=== PATIENT | male | born 2000 | race Caucasian/White ===

== ENCOUNTER 2023-07-31 13:24 | Outpatient (AMB) | payer OTHER, SELFPAY ==
--- NOTE | 2023-07-31 13:40 | A.OFFVIS_ITS ---
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 He was referred by PCP for pulmonary evaluation for persistent cough. He reports dry cough that began late summer/early fall. He was prescribed an inhaler but did not use. He was also diagnosed with COVID 06/17/23. Chest CT from 07/04, below. He had recent treatment with doxycyline, finishing last dose this morning and has had resolution of cough. He denies chest tightness, wheezing, or dyspnea. He denies hemoptysis. Of note, he was diagnosed with vasculitis in April by PCP and referred to rheumatology. Unfortunately, when patient went to consultation, vasculitis of LE was not flaring, therefore no biopsy performed. Multiple labs were ordered in May 2023 however patient did not want to continue care through [facility] Rheumatology and is awaiting appointment scheduled this summer. Reviewed labs via patient portal which revealed multiple abnormal results, will request reports. Patient currently with rash of RLE that started about two weeks ago, per referral. He denies any prior diagnosis of asthma. He denies any family history of respiratory conditions or autoimmune conditions. He reports possible seasonal allergies, no prior allergy testing. 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 [facility] Social History (Updated 07/31/23 @ 13:50 by Jessica Mcgee LPN) Patient Tobacco Use Status: Never used Tobacco Smoked in Last 30 Days: No Review of Systems Const Denies chills, Denies excessive sweating, Denies fever(s), Denies headache(s) and Denies night sweats Eyes Denies dry eyes, Denies irritation and Denies itchy eyes ENT Reports Normal hearing present, Denies headache(s), Denies nasal congestion, Denies nasal discharge, Denies post nasal drip and Denies sore throat Card Denies chest pain, Denies chest pain at rest, Denies chest pain with activity, Denies claudication, Denies leg edema, Denies dyspnea, Denies dyspnea on exertion, Denies orthopnea and Denies paroxysmal nocturnal dyspnea Resp Denies chest congestion, Denies cough, Denies excessive phlegm production, Denies pain on inspiration, Denies pain with cough, Denies dyspnea, Denies dyspnea on exertion, Denies stridor and Denies wheezing Musc Denies myalgias Neuro Reports Normal hearing present and Denies headache(s) Endo Denies excessive sweating Aller/Immun Denies itchy eyes, Denies seasonal rhinorrhea and Denies wheezing Physical Exam Vital Signs: BMI result Body Mass Index 26.5 Const General: cooperative, healthy appearing, comfortable, no acute distress, well developed and alert Nutritional Appearance: average body habitus Orientation/consciousness: patient oriented x3 Limitations: no limitations HEENT Head: Yes normal to inspection, Yes normocephalic and Yes atraumatic Ears: hearing grossly normal bilaterally and external ears normal Eyes General: appearance normal, both eyes and all related structures Eyelids: Yes eyelids normal Sclerae: sclerae normal EOM: EOMs intact bilaterally Neck Neck: Yes normal visual inspection and Yes no lymphadenopathy Lymphatic: no lymphadenopathy noted Chest Chest palpation & inspection: normal inspection of the chest Resp Effort & Inspection: normal respiratory effort, able to speak in complete sentences, no audible wheezes, no cough, no stridor, not tachypneic, no tripod positioning and no use of accessory muscles Auscultation: clear to auscultation bilaterally Cardio Jugular venous distension: no JVD Rate: regular rate Skin Other: warm, dry Neuro General: patient oriented x3 Cranial nerves: Yes Normal hearing present Cognition (Neuro): normal cognition Gait exam (Neuro): Normal gait present Extrem Other: multiple erythematous petechiae of RLE. General: Yes no clubbing, cyanosis or edema Psych Appearance: grossly normal and well kempt Speech and movement: Normal speech and movement present and Clear speech present Affect: normal affect Attitude: cooperative Thought process: Normal thought process present Thought content: Normal thought content present Insight: Good insight present (Psych) Judgement: Good judgement present (Psych) Results Reviewed Results Reviewed: Assessment & Plan Assessment & Plan (1) Cough: Code(s): R05.9 - Cough, unspecified (2) Vasculitis: Code(s): I77.6 - Arteritis, unspecified (3) Abnormal finding on CT scan: Code(s): R93.89 - Abnormal findings on diagnostic imaging of other specified body structures (4) Environmental allergies: Code(s): Z91.09 - Other allergy status, other than to drugs and biological substances Plan Elias was initially referred for persistent dry cough for the past 5-6 months. Will send for PFT to assess for any obstructive defect as well as RAST testing. Although patient reports resolution of cough after recent course of doxycyline, prior imaging revealed multiple areas of ground glass opacities, likely infectious/inflammatory. Will send for CXR today as prior CT was from 4 weeks ago to assess for resolving opacities and likely send for follow up chest CT in 4-6 weeks. His prior labs are suggestive of an underlying connective tissue disorder, which could explain pulmonary, kidney and skin involvement. Will urgently refer to rheumatology and request prior rheumatology labs from [facility]. If unable to be evaluated quickly by rheumatology, will review labs to see what further testing needs to be performed. He also has an appointment tomorrow with nephrology to assess recent findings on hematuria and proteinuria. Will follow up to review results and rheumatology/neprhology input. All questions were answered and patient is in agreement of plan. Orders: Orders 2 Complete Blood Count Auto Diff Today I77.6 - Arteritis, unspecified Immunoglobulin E Today Z91.09 - Other allergy status, other than to drugs and biological substances Resp Allergy Profile Region I Today Z91.09 - Other allergy status, other than to drugs and biological substances XR chest 2V Today R05.9 - Cough, unspecified PFT pulmonary function test Today R05.9 - Cough, unspecified Referrals 2 Rheumatology Referral I77.6 - Arteritis, unspecified Coding Level of Care Code New Pt Level 5 (16925) Diagnoses Cough R05.9 Vasculitis I77.[address] scan R93.89 Environmental allergies Z91.09
[2023-07-31 13:42] VITALS: BMI 26.5
== END 2023-07-31 14:30 | disposition home or self-care (01) ==
PROVIDERS: PCP Pediatrics Adolescent Medicine; Visit Provider Nurse Practitioner Family
DX: R05.9 Cough, unspecified (principal); I77.6 Arteritis, unspecified; R93.89 Abnormal findings on diagnostic imaging of other specified body structures; Z91.09 Other allergy status, other than to drugs and biological substances
CPT/HCPCS: 99204

== ENCOUNTER → 2023-07-31 13:24 | Outpatient (BNVA) | payer OTHER, SELFPAY | PROVIDERS: PCP Pediatrics Adolescent Medicine; Visit Provider Nurse Practitioner Family ==

== ENCOUNTER 2023-08-01 11:27 | Outpatient (AMB) | payer OTHER, SELFPAY ==
[2023-08-01 11:47] VITALS: BP 120/70; PULSE 85; O2SAT 98; BMI 26.5
--- NOTE | 2023-08-01 11:47 | HO.NEPHOV_ITS ---
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 he had lower extremity rash bilaterally in April 2023. he had associated cough at that time with no fever. He had no abdominal pain at that time. There was no history of macroscopic hematuria at any time. He denied any joint pains or pedal edema. He has seen a on call [place] who ordered some workup but has not had a follow-up after that. His serum creatinine has been fairly stable with normal blood pressure. His rash had faded away but to recur again recently on the dorsum of both feet, purpuric in nature which even now has started to fade. He has microscopic hematuria but had no significant proteinuria even in May 2023. His [employer] IgG antibodies were positive along with rheumatoid factor. His cryoglobulin was presumed to be positive but it was not repeated. His complement levels C3 was 76 and 79 in April and May but had improved to 1.9 on 06/05/2023. His C4 levels were 9 and 8 on 28 of April and 17 of May but had improved to 15 on 06/05/2023. His C-reactive protein was 4.9 on 04/28/2023 which had improved to 4.5 on 17 of May which had settled to 2.7 on 06/05/2023. His ESR on 06/05/2023 was 51. His serum creatinine was 1 on 06/05/2023. He had COVID infection in June of 2023 consisted mostly of upper respiratory symptoms. He does have a lingering dry cough. One over documentation in [facility] mentions that he had had just be vasculitis treated w ith steroids around . 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 Danilo Fuchs. He had a reoperative sternotomy with the pulmonary valve replacement using a pericardial tissue valve in January of 2019. He denies any other active systemic symptoms at the time of this office visit. [facility] Medical History Proteinuria Surgical History (Updated 08/01/23 @ 11:50 by Janine Taveras MA) History of open heart surgery Family History (Updated 08/01/23 @ 11:51 by Janine Taveras MA) Maternal Grandmother Diabetes Paternal Grandfather Diabetes Social History (Updated 08/01/23 @ 11:51 by Janine Taveras MA) Alcohol intake: never Patient Tobacco Use Status: Never used Tobacco Vital Signs 08/01/23 11:47 Height 5 ft 11 in Weight 190 lb 6 oz BMI 26.5 BP 120/70 Blood Pressure Location Lt brachial Position Sitting Pulse 85 Pulse Source Pulse Oximeter Pulse Oximetry (%) 98 Oxygen Delivery Method Room Air Physical Exam Vital Signs: Last Vital Signs Pulse 85 08/01/23 11:47 BP 120/70 08/01/23 11:47 Pulse Ox 98 08/01/23 11:47 Oxygen Delivery Method Room Air 08/01/23 11:47 BMI result Body Mass Index 26.5 Const General: comfortable and no acute distress Orientation/consciousness: patient oriented x3 HEENT Head: Yes normocephalic Mouth: Normal oral and palatal mucosa present Eyes EOM: EOMs intact bilaterally Neck Neck: Yes supple Resp Auscultation: clear to auscultation bilaterally Cardio Jugular venous distension: no JVD Rate: regular rate GI Palpation (GI): Soft to palpation Auscultation: normal bowel sounds General: Yes no CVA tenderness Back/Spine/Pelvis Back: no CVA tenderness Skin Other: Purpuric rash on both dorsum of the feet Neuro General: patient oriented x3 and moves all extremities Extrem General: Yes no pedal edema Assessment & Plan Assessment & Plan (1) Vasculitis: Code(s): I77.6 - Arteritis, unspecified Plan 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 His complements were low with microscopic hematuria without any significant proteinuria and stable renal function. His blood pressure at that time was normal. He had recurrence of the rash now. He has no GI symptoms, sore throat, microscopic hematuria. He has microscopic hematuria but had no significant proteinuria even in May 2023. His M[employer] IgG antibodies were positive along with rheumatoid factor. His cryog lobulin was presumed to be positive but it was not repeated. His complement levels C3 was 76 and 79 in April and May but had improved to 1.9 on 06/05/2023. His C4 levels were 9 and 8 on 28 of April and 17 of May but had improved to 15 on 06/05/2023. His C-reactive protein was 4.9 on 04/28/2023 which had improved to 4.5 on 17 of May which had settled to 2.7 on 06/05/2023. His ESR on 06/05/2023 was 51. His serum creatinine was 1 on 06/05/2023. His blood pressure is normal now. I have ordered IgA levels complements, repeat cryoglobulin. He needs rheumatological consultation urgently. If any other workup is compelling, we will consider doing a renal biopsy but I prefer to avoid it if possible, if the diagnosis is definite by other means. I have not treated him with any medications today but prominence him and his mother that I will try to get him an urgent rheumatological appointment. Further management is pending evolving data. Answered all questions. Follow-up given Orders: Orders Complement C3 Today I77.6 - Arteritis, unspecified Protein Electrophoresis, Serum Today I77.6 - Arteritis, unspecified Blood Urea Nitrogen Today I77.6 - Arteritis, unspecified Electrolytes Today I77.6 - Arteritis, unspecified Protein Creatinine Ratio, Ur Today I77.6 - Arteritis, unspecified Cryoglobulin Today I77.6 - Arteritis, unspecified Complement C4 Today I77.6 - Arteritis, unspecified Creatinine Today I77.6 - Arteritis, unspecified AMB Urinalysis Dipstick Today I77.6 - Arteritis, unspecified, Z13.9 - Encounter for screening, unspecified Prothrombin Time INR Today I77.6 - Arteritis, unspecified Coding Level of Care Code New Pt Level 4 (15500) Diagnoses Vasculitis I77.6 Results Reviewed Nephrology Results: No Data to Display
== END 2023-08-01 12:34 | disposition home or self-care (01) ==
PROVIDERS: PCP Pediatrics Adolescent Medicine; Visit Provider Internal Medicine Nephrology
DX: I77.6 Arteritis, unspecified (principal)
CPT/HCPCS: 99204

== ENCOUNTER → 2023-08-01 11:27 | Outpatient (BNVA) | payer OTHER, SELFPAY | PROVIDERS: PCP Pediatrics Adolescent Medicine; Visit Provider Internal Medicine Nephrology ==

== ENCOUNTER 2023-08-02 09:35 | Outpatient (REF) | payer OTHER, SELFPAY ==
--- NOTE | ~2023-08-02 | XR_ITS ---
EXAMINATION: XR CHEST CLINICAL INFORMATION: Cough unspecified. COMPARISON: None available. TECHNIQUE: 2 views of the chest were obtained. FINDINGS: Enlarged cardiac silhouette. Prominence of the bilateral fide, possibly due to vascularity versus adenopathy. Median sternotomy wires. Several median sternotomy wires are broken. Prosthetic valve. No pleural effusion. There is no gross pneumothorax. Mild bibasilar opacities likely represent subsegmental atelectasis, although pneumonia should also be considered. Loss of height of two adjacent lower thoracic vertebral bodies characteristic of wedge compression deformities of indeterminate age. XR/XR chest 2V IMPRESSION: 1. Prominence of the bilateral fide, possibly due to vascularity versus less likely adenopathy. 2. Mild bibasilar opacities likely represent subsegmental atelectasis, although pneumonia should also be considered. 3. Loss of height of the adjacent lower thoracic vertebral bodies characteristic of wedge compression fractures of indeterminate age. 4. Direct correlation with prior images is recommended and if prior images are provided, an addendum will be dictated. In the absence of prior images, CT scan is recommended for further evaluation. This study was presented today August 07, 2023 for interpretation. PSA staff will provide results to referring provider at this time.
[2023-08-02 12:40] LABS: Creatinine Urine 107.65 mg/dL; Protein/Creatinine Ratio, Ur 0.48 (<0.2); Total Protein Urine Random 52 mg/dL (<12)
[2023-08-02 12:40] LABS: Alanine Aminotransferase 10 U/L (0-40); Albumin Level 3.4 g/dL (3.5-5.0); Alkaline Phosphatase 77 U/L (39-117); Anion Gap 13 (12-20); Aspartate Amino Transferase 20 U/L (5-37); Bilirubin Total 0.3 mg/dL (0.0-1.0); Blood Urea Nitrogen 11 mg/dL (9-16); C Reactive Protein 4.44 mg/dL (< or = 0.50); Calcium 9.3 mg/dL (8.4-10.2); Carbon Dioxide 28 mmol/L (22-29); Chloride 106 mmol/L (96-108); Estimated Glomerular Filt Rate > 60; Glucose Random 82 mg/dL (60-115); Potassium 5.6 mmol/L (3.3-5.1); Sodium 141 mmol/L (135-145); Total Protein 7.9 g/dL (6.5-8.0)
[2023-08-02 12:48] LABS: Appearance Urine Clear; Color Urine Yellow; Glucose Urine UA Negative (Negative); Leukocyte Esterase Urine Negative (Negative); Nitrite Urine Negative (Negative); PH >= 9.0 (5.0-9.0); Specific Gravity - Urine 1.015 (1.005-1.025); UMIC TRIGGER UA YES; Urine Blood Large (3+) (Negative); Urine Ketones Negative (Negative); Urine Protein 100 (2+) mg/dL (Neg-Trace)
[2023-08-02 12:53] LABS: Bacteria Urine None Seen (None Seen); Hyaline Casts Urine 0-2 /LPF (0-2); RBC Urine >20 /HPF (0-2); Squamous Epithelial Cell Urine 0-2 /HPF (0-2)
[2023-08-02 13:12] LABS: Erythrocyte Sedimentation Rate 73 MM/HR (0-15)
[2023-08-03 08:25] LABS: HBS Num1 0.29 mIU/mL (0-7.99); HBc Num1 0.11 S/CO (0.00-0.79); HBsAGNum1 0.43 S/CO (0.00-0.99); HIV AB/AG Nonreactive (Nonreactive); HIV Num 1 0.06 S/CO (0.00-0.99); Hepatitis A Antibody IgM 0.17 Index (0-0.79); Hepatitis B Core Antibody Nonreactive (Nonreactive); Hepatitis B Surface Antigen Negative (Negative); ~HepC Num1 0.16 S/CO (0.00-0.79); ~Hepatitis A Antibody IgM Nonreactive (Nonreactive); ~Hepatitis B Surface Antibody NONREACTIVE (Nonreactive); ~Hepatitis C Antibody Nonreactive (Nonreactive)
[2023-08-03 13:49] LABS: Cardiolipin IgG Ab <2.0 GPL-U/mL; Cardiolipin IgM Ab <2.0 MPL-U/mL
[2023-08-03 14:03] LABS: Cyclic Citrullinated Peptide <16 UNITS
[2023-08-04 22:53] LABS: TS Negative Control Passed; TS Panel A 0; TS Panel B 0; TS Positive Control Passed; TSpotTB Negative (Negative)
[2023-08-06 21:48] LABS: Anti DNA DS Antibody <1 IU/mL; Antibody to SS-A Antigen <1.0 NEG AI (<1.0 NEG); Antibody to SS-B Antigen <1.0 NEG AI (<1.0 NEG); Myeloperoxidase Antibody <1.0 AI; Proteinase 3 PR3 Antibodies <1.0 AI; SM/Ribonucleoprotein Ab <1.0 NEG AI (<1.0 NEG); Smith Protein <1.0 NEG AI (<1.0 NEG)
[2023-08-06 22:24] LABS: Beta-2 Glycoprotein IgA <2.0 U/mL (<20.0); Beta-2 Glycoprotein IgG <2.0 U/mL (<20.0); Beta-2 Glycoprotein IgM <2.0 U/mL (<20.0)
[2023-08-07 15:19] LABS: DNAds, Crithidia Antibody Negative (Negative)
[2023-08-08 14:07] LABS: PTT (LAC) Screen 32 sec (<=40)
[2023-08-08 15:08] LABS: IgA 232 mg/dL (47-310); IgG 2493 mg/dL (600-1640); IgM 257 mg/dL (50-300)
[2023-08-09 12:34] LABS: C1q Antibody IgG 29 RU/mL (<26)
[2023-08-09 18:03] LABS: C1Q Complement Component 4.9 mg/dL (5.0-8.6)
[2023-08-11 19:27] LABS: Anti Nuclear Antibody Screen POSITIVE (NEGATIVE)
== END 2023-08-02 09:36 | disposition home or self-care (01) ==
LOC: HO.LAB 09:35
PROVIDERS: Absent Provider Nurse Practitioner Family; PCP Pediatrics Adolescent Medicine; Visit Provider Student in an Organized Health Care Education/Training Program
DX: I77.6 Arteritis, unspecified (principal); R76.0 Raised antibody titer; M06.9 Rheumatoid arthritis, unspecified; M32.9 Systemic lupus erythematosus, unspecified; R21 Rash and other nonspecific skin eruption; R05.9 Cough, unspecified; Z79.82 Long term (current) use of aspirin; Z11.59 Encounter for screening for other viral diseases; Z11.7 Encounter for testing for latent tuberculosis infection; Z72.89 Other problems related to lifestyle
CPT/HCPCS: 36415; 71046; 80053; 81001; 82570; 82595; 82784; 83516; 84156; 85597; 85598; 85613; 85652; 85730; 86021; 86038; 86039; 86140; 86146; 86147; 86160; 86200; 86225; 86235; 86255; 86334; 86481; 86704; 86706; 86709; 86803; 87340; 87389

== ENCOUNTER 2023-08-02 09:35 | Outpatient (AMB) | payer OTHER, SELFPAY ==
[2023-08-02 10:04] VITALS: BP 124/66; PULSE 108; TEMP 37.5; BMI 26.3
--- NOTE | 2023-08-02 10:04 | MHC.OFFVIS ---
Intake Vital Signs 08/02/23 10:04 Height 5 ft 11 in Weight 188 lb 4.396 oz BMI 26.3 BP 124/66 Pulse 108 H Pulse Source Pulse Oximeter Temp 99.5 F Temp Source Skin Intake Visit Reasons: Vasculitis Intake Note: New patient presents today for consult, internally referred by nephrology. He is with his mother who states pt has seen Dr Arrieta in the past. C/o rash and pain in bl legs and feet; persistent cough. Crime Victim Specialist Required: No Accompanied by: Mother Allergies No Known Allergies Allergy (Verified 08/02/23 10:07) Medication List - Last Reconciled 08/02/23 by Linda Garcia MD aspirin 81 mg PO DAILY HPI HPI Comments History of Present Illness Details This is a 22-year-old male who presents for evaluation of vasculitis. Back in February patient started having dry nonproductive cough with no fevers. Two months later he started having rashes both feet and his legs up to just below his knees. This was associated with some ankle pain and swelling as well as bilateral calf aches. He denies any fevers or chills, no weight loss. 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 He had some dark urine. He was prescribed steroid for 4 days with improvement of his rash. In May he was evaluated by quality facilitator Dr. Arrieta and had blood work done. He did not go back for follow-up. A CT chest was also ordered which showed multiple ground-glass opacities, but patient had just cleared a COVID infection. Currently patient is having the rash on both legs, not as severe as before. In addition to the dry cough. No other symptoms. No history of DVT/PE. No known family history of an autoimmune rheumatic disease. Of note patient has history of tetralogy of Fallot s/p surgery as an infant and another surgical procedure 5 years ago. 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 Review of Systems Const Reports fatigue ENT Details: runny nose Card Reports chest pain, Denies dyspnea and Denies dyspnea on exertion Resp Reports cough, Denies dyspnea and Denies dyspnea on exertion GI Reports abdominal pain and Reports nausea Details: Dark urine Musc Reports myalgias, Reports arthralgias and Reports joint swelling Skin/Breast Reports lesions and Reports rash Endo Reports fatigue Physical Exam Vital Signs: Last Vital Signs Temp 99.5 F 08/02/23 10:04 Pulse 108 H 08/02/23 10:04 BP 124/66 08/02/23 10:04 BMI result Body Mass Index 26.3 Const General: cooperative, healthy appearing and comfortable Nutritional Appearance: overweight Orientation/consciousness: patient oriented x3 Limitations: no limitations HEENT Head: Yes normocephalic and Yes atraumatic Mouth: moist mucous membranes Resp Other: Intermittent dry cough Effort & Inspection: normal respiratory effort, able to speak in complete sentences and Actively coughing Quality: dry Cardio Rate: regular rate Heart sounds: Murmur heart sound present systolic Skin Other: Neuro General: patient oriented x3 Extrem Other: Mild right ankle tenderness at the medial malleolus No active synovitis otherwise Normal nailfold capillaroscopy Assessment & Plan Assessment & Plan (1) Vasculitis: Code(s): I77.6 - Arteritis, unspecified Plan: This is a 22-year-old male with history of tetralogy of Fallot s/p surgical repair who presents for evaluation of vasculitis. Over the last 6 months patient has been having recurrent lower extremity rashes, as well as dry nonproductive cough, CT chest showing findings of ground-glass opacities. Rashes improving with steroids. Labs showing high inflammatory markers, low C3, low C4, positive rheumatoid factor. Clinical picture suspicious for small-vessel vasculitis. Will order comprehensive serology to screen for underlying autoimmune rheumatic disease. Start prednisone taper Follow-up in 4 weeks Plan I spent 47 minutes reviewing patient's chart, evaluating patient, ordering diagnostic workup, counseling patient and documenting in the chart Orders: Orders Beta-2 Glycoprotein Antibody Today R76.0 - Raised antibody titer Lupus Anticoagulant Panel Today R76.0 - Raised antibody titer Comprehensive Met. Panel Today I77.6 - Arteritis, unspecified Hepatitis A,B,C Profile Today Z11.59 - Encounter for screening for other viral diseases T Spot TB Today Z11.7 - Encounter for testing for latent tuberculosis infection Immunofixation Pnl, Serum Today I77.6 - Arteritis, unspecified Cyclic Citrullinated Peptide Today M06.9 - Rheumatoid arthritis, unspecified Anti Extractable Nuclear Ag Today M32.9 - Systemic lupus erythematosus, unspecified Erythrocyte Sedimentation Rate Today M32.9 - Systemic lupus erythematosus, unspecified C1Q Complement Component Today I77.6 - Arteritis, unspecified Cardiolipin Antibodies Today R76.0 - Raised antibody titer C Reactive Protein Today I77.6 - Arteritis, unspecified ANCA Vasculitides Today I77.6 - Arteritis, unspecified HIV Ab/Ag Today Z11.59 - Encounter for screening for other viral diseases JARRETT Reflex Titer and Pattern Today M32.9 - Systemic lupus erythematosus, unspecified Anti DNA DS Antibody Today M32.9 - Systemic lupus erythematosus, unspecified DNA Double Stranded-Crithidia Today M32.9 - Systemic lupus erythematosus, unspecified Protein Creatinine Ratio, Ur Today M32.9 - Systemic lupus erythematosus, unspecified Sjogren's Antibodies Today M32.9 - Systemic lupus erythematosus, unspecified UA w Microscopic Today M32.9 - Systemic lupus erythematosus, unspecified C1q Antibody IgG Today I77.6 - Arteritis, unspecified Cryoglobulin Today I77.6 - Arteritis, unspecified Medications: New prednisone Take 4 tabs daily for 1 week then 3 tabs daily for 1 week then remain on 2 tabs daily 77 tabs 0RF Coding Level of Care Code New Pt Level 4 (54424) Diagnoses Vasculitis I77.6
== END 2023-08-02 10:40 | disposition home or self-care (01) ==
PROVIDERS: PCP Pediatrics Adolescent Medicine; Visit Provider Student in an Organized Health Care Education/Training Program
DX: I77.6 Arteritis, unspecified (principal)
CPT/HCPCS: 99204

== ENCOUNTER 2023-08-29 10:27 | Outpatient (AMB) | payer OTHER, SELFPAY ==
[2023-08-29 10:37] VITALS: BP 110/68; PULSE 115; O2SAT 97; BMI 26.1
--- NOTE | 2023-08-29 10:37 | HO.NEPHOV_ITS ---
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 he had lower extremity rash bilaterally in April 2023. he had associated cough at that time with no fever. He had no abdominal pain at that time. There was no history of macroscopic hematuria at any time. He denied any joint pains or pedal edema. He has seen a tug hand in [place] who ordered some workup but has not had a follow-up after that. His serum creatinine has been fairly stable with normal blood pressure. His rash had faded away but to recur again recently on the dorsum of both feet, purpuric in nature which even now has started to fade. He has microscopic hematuria but had no significant proteinuria even in May 2023. His INTENSIVE CARE UNIT REGISTERED NURSE IgG antibodies were positive along with rheumatoid factor. His cryoglobulin was presumed to be positive but it was not repeated. His complement levels C3 was 76 and 79 in April and May but had improved to 1.9 on 06/05/2023. His C4 levels were 9 and 8 on 28 of April and 17 of May but had improved to 15 on 06/05/2023. His C-reactive protein was 4.9 on 04/28/2023 which had improved to 4.5 on 17 of May which had settled to 2.7 on 06/05/2023. His ESR on 06/05/2023 was 51. His serum creatinine was 1 on 06/05/2023. He had COVID infection in June of 2023 consisted mostly of upper respiratory symptoms. He does have a lingering dry cough. One over documentation in [facility] mentions that he had had just be vasculitis treated with steroids around . 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 Danilo Fuchs. He had a reoperative sternotomy with the pulmonary valve replacement using a pericardial tissue valve in January of 2019. He was treated with tapering dose of prednisone by Rhuematologist. His rashes are gone but he some stuffy nose and intermittent stomach pain/ nusea. 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 Vital Signs 08/29/23 10:37 Height 5 ft 11 in Weight 187 lb BMI 26.1 BP 110/68 Blood Pressure Location Lt brachial Position Sitting Pulse 115 H Pulse Source Pulse Oximeter Pulse Oximetry (%) 97 Oxygen Delivery Method Room Air Physical Exam Vital Signs: Last Vital Signs Pulse 115 H 08/29/23 10:37 BP 110/68 08/29/23 10:37 Pulse Ox 97 08/29/23 10:37 Oxygen Delivery Method Room Air 08/29/23 10:37 BMI result Body Mass Index 26.1 Const General: comfortable and no acute distress Orientation/consciousness: patient oriented x3 HEENT Head: Yes normocephalic Mouth: Normal oral and palatal mucosa present Eyes EOM: EOMs intact bilaterally Neck Neck: Yes supple Resp Auscultation: clear to auscultation bilaterally Cardio Jugular venous distension: no JVD Rate: regular rate GI Palpation (GI): Soft to palpation Auscultation: normal bowel sounds General: Yes no CVA tenderness Back/Spine/Pelvis Back: no CVA tenderness Skin General skin exam: no rashes or lesions noted Neuro General: patient oriented x3 and moves all extremities Extrem General: Yes no pedal edema Assessment & Plan Assessment & Plan (1) Vasculitis: Code(s): I77.6 - Arteritis, unspecified Plan 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 His complements were low with microscopic hematuria without any significant proteinuria and stable renal function. His blood pressure at that time was normal. He had recurrence of the rash now. He has no GI symptoms, sore throat, microscopic hematuria. He has microscopic hematuria but had no significant proteinuria even in May 2023. His INTENSIVE CARE UNIT REGISTERED NURSE IgG antibodies were positive along with rheumatoid factor. His cryoglobulin was presumed to be positive but it was not repeated. His complement levels C3 was 76 and 79 in April and May but had improved to 1.9 on 06/05/2023. His C4 levels were 9 and 8 on 28 of April and 17 of May but had improved to 15 on 06/05/2023. His C-reactive protein was 4.9 on 04/28/2023 which had improved to 4.5 on 17 of May which had settled to 2.7 on 06/05/2023. His ESR on 06/05/2023 was 51. His serum creatinine was 1 on 06/05/2023. His renal functions had been stable. He is finishing prednisone today. He is going to repeat blood work/ urine studies today. If any other workup is compelling, we will consider doing a renal biopsy but I prefer to avoid it if possible, if the diagnosis is definite by other means. Further management is pending evolving data. Answered all questions. Follow-up given Orders: Orders UA and rflx microscopic Today I77.6 - Arteritis, unspecified Protein Creatinine Ratio, Ur Today I77.6 - Arteritis, unspecified Blood Urea Nitrogen Today I77.6 - Arteritis, unspecified Electrolytes Today I77.6 - Arteritis, unspecified Creatinine Today I77.6 - Arteritis, unspecified Coding Level of Care Code Est Pt Level 4 (38537) Diagnoses Vasculitis I77.6 Results Reviewed Nephrology Results: Sodium 141 mmol/L (135-145) 08/02/23 Potassium 5.6 mmol/L (3.3-5.1) H 08/02/23 Chloride 106 mmol/L (96-108) 08/02/23 Carbon Dioxide 28 mmol/L (22-29) 08/02/23 BUN 11 mg/dL (9-16) 08/02/23 Creatinine 0.90 mg/dL (0.5-1.4) 08/02/23 Calcium 9.3 mg/dL (8.4-10.2) 08/02/23 Urine Protein 100 (2+) mg/dL (Neg-Trace) H 08/02/23 Urine Creatinine 107.65 mg/dL 08/02/23 Protein/Creatinin Ratio 0.48 (<0.2) H 08/02/23
== END 2023-08-29 11:02 | disposition home or self-care (01) ==
PROVIDERS: PCP Pediatrics Adolescent Medicine; Visit Provider Internal Medicine Nephrology
DX: I77.6 Arteritis, unspecified (principal)
CPT/HCPCS: 99214

== ENCOUNTER 2023-08-29 10:27 | Outpatient (REF) | payer OTHER, SELFPAY ==
[2023-08-29 13:02] LABS: Appearance Urine Turbid; Color Urine Dark Yellow; Glucose Urine UA Negative (Negative); Leukocyte Esterase Urine Small (1+) (Negative); Nitrite Urine Negative (Negative); Specific Gravity - Urine 1.025 (1.005-1.025); UMIC TRIGGER UA YES; Urine Blood Large (3+) (Negative); Urine Ketones Trace mg/dL (Negative); Urine Protein 100 (2+) mg/dL (Neg-Trace)
[2023-08-29 13:18] LABS: Bacteria Urine None Seen (None Seen); Granular Casts Urine Present; Other Crystals Urine Present; Squamous Epithelial Cell Urine 0-2 /HPF (0-2)
[2023-08-29 13:22] LABS: Anion Gap 15 (12-20); Blood Urea Nitrogen 22 mg/dL (9-16); Carbon Dioxide 24 mmol/L (22-29); Chloride 103 mmol/L (96-108); Estimated Glomerular Filt Rate > 60; Potassium 4.6 mmol/L (3.3-5.1); Sodium 137 mmol/L (135-145)
[2023-08-29 13:23] LABS: Creatinine Urine 289.27 mg/dL; Total Protein Urine Random 116 mg/dL (<12)
== END 2023-08-29 10:28 | disposition home or self-care (01) ==
LOC: HO.LAB 10:27
PROVIDERS: PCP Pediatrics Adolescent Medicine; Visit Provider Internal Medicine Nephrology
DX: I77.6 Arteritis, unspecified (principal)
CPT/HCPCS: 36415; 80051; 81001; 81003; 82565; 82570; 84156; 84520

== ENCOUNTER 2023-08-30 12:48 | Outpatient (AMB) | payer OTHER, SELFPAY ==
[2023-08-30 12:58] VITALS: BP 114/60; PULSE 124; O2SAT 98; BMI 25.6
--- NOTE | 2023-08-30 12:58 | MHC.OFFVIS ---
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 Patient has been taking prednisone taper as prescribed. 40 mg daily for 1 week, 30 mg daily for 1 week, then 20 mg daily for the last 2 weeks. He stated that over the last 22 weeks he has been having progressively worsening cough, intermittent episodes of blood tinged sputum as well as some shortness of breath, has been having some abdominal muscle soreness, thigh muscle soreness. He has been having rashes but he believes that his rashes are acne rather than vasculitic rashes. He has nightly sweats. Denies any fever. Urine is dark Initial history: This is a 22-year-old male who presents for evaluation of vasculitis. Back in February patient started having dry nonproductive cough with no fevers. Two months later he started having rashes both feet and his legs up to just below his knees. This was associated with some ankle pain and swelling as well as bilateral calf aches. He denies any fevers or chills, no weight loss. 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 He had some dark urine. He was prescribed steroid for 4 days with improvement of his rash. In May he was evaluated by net developer contract Dr. Arrieta and had blood work done. He did not go back for follow-up. A CT chest was also ordered which showed multiple ground-glass opacities, but patient had just cleared a COVID infection. Currently patient is having the rash on both legs, not as severe as before. In addition to the dry cough. No other symptoms. No history of DVT/PE. No known family history of an autoimmune rheumatic disease. Of note patient has history of tetralogy of Fallot s/p surgery as an and another surgical procedure 5 years ago. 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 Review of Systems Const Reports fatigue ENT Details: runny nose Card Reports chest pain, Reports dyspnea and Reports dyspnea on exertion Resp Reports cough, Reports hemoptysis, Reports pain on inspiration, Reports pain with cough, Reports dyspnea and Reports dyspnea on exertion GI Reports abdominal pain and Reports nausea Details: Dark urine Musc Reports myalgias and Reports arthralgias Skin/Breast Denies rash Endo Reports fatigue Physical Exam Vital Signs: BMI result Body Mass Index 25.6 Const General: cooperative, healthy appearing and comfortable Nutritional Appearance: overweight Orientation/consciousness: patient oriented x3 Limitations: no limitations HEENT Head: Yes normocephalic and Yes atraumatic Mouth: moist mucous membranes Resp Other: Intermittent dry cough Effort & Inspection: normal respiratory effort, able to speak in complete sentences and Actively coughing Quality: dry Auscultation: diminished lung sounds bilateral Cardio Rate: regular rate Heart sounds: Murmur heart sound present systolic GI Inspection: No distended Palpation (GI): Soft to palpation and nontender Skin General skin exam: no rashes or lesions noted Neuro General: patient oriented x3 Extrem Other: No active synovitis Assessment & Plan Assessment & Plan (1) Vasculitis: Code(s): I77.6 - Arteritis, unspecified Plan: This is a 23-year-old male with history of tetralogy of Fallot s/p surgical repair who presents for evaluation of vasculitis. Over the last 6 months patient has been having recurrent lower extremity rashes, as well as dry nonproductive cough, CT chest showing findings of ground-glass opacities. Labs showing high inflammatory markers, low C3, low C4, positive rheumatoid factor, positive JARRETT Clinical picture suspicious for small-vessel vasculitis. Patient was doing fairly well on prednisone 40 mg daily, started having worsening pulmonary symptoms with intermittent hemoptysis when prednisone was dropped to 20 mg. Urinalysis continues to show proteinuria and hematuria. Differential diagnosis at this stage is SLE versus another small-vessel vasculitis such as IgA vasculitis. Patient needs biopsy for accurate diagnosis and targeted treatment. Unfortunately the skin rashes have resolved. Discussed with drill operator pneumatic Dr. Fernandes, he will arrange for kidney biopsy as soon as possible, hopefully next week. Will increase prednisone to 60 mg daily. Start famotidine for GI prophylaxis Discussed with patient that he should go to the hospital for any rapid compromise in respiratory function or worsening hemoptysis Follow-up pulmonary Follow-up in 2 weeks Plan I spent 47 minutes reviewing patient's chart, evaluating patient, ordering diagnostic workup, discussing with Dr. Fernandes, counseling patient and documenting in the chart Orders: Orders Complete Blood Count Auto Diff Today I77.6 - Arteritis, unspecified Comprehensive Met. Panel Today I77.6 - Arteritis, unspecified Erythrocyte Sedimentation Rate Today I77.6 - Arteritis, unspecified Complement C4 Today I77.6 - Arteritis, unspecified Complement C3 Today I77.6 - Arteritis, unspecified C Reactive Protein Today I77.6 - Arteritis, unspecified Creatine Kinase Total Today I77.6 - Arteritis, unspecified Medications: New famotidine 40 mg PO DAILY 30 tabs 1RF Changed From prednisone Take 4 tabs daily for 1 week then 3 tabs daily for 1 week then remain on 2 tabs daily 77 tabs 0RF To prednisone 20 mg (2 x 10 mg) PO DAILY 120 tabs 1RF From prednisone 20 mg (2 x 10 mg) PO DAILY 120 tabs 1RF To prednisone 60 mg (3 x 20 mg) PO DAILY 42 tabs 1RF Coding Level of Care Code Est Pt Level 5 (30775) Diagnoses Vasculitis I77.6
== END 2023-08-30 13:27 | disposition home or self-care (01) ==
PROVIDERS: PCP Pediatrics Adolescent Medicine; Visit Provider Student in an Organized Health Care Education/Training Program
DX: I77.6 Arteritis, unspecified (principal)
CPT/HCPCS: 99214

== ENCOUNTER 2023-08-30 12:48 | Outpatient (REF) | payer OTHER, SELFPAY ==
[2023-08-30 13:47] LABS: MANUAL DIFF FLAG NO
[2023-08-30 14:06] LABS: Basophils Absolute Auto 0.1 X10*3/uL (0.0-0.2); Basophils Percent Auto 0.4 % (0-2); Eosinophils Absolute Auto 0.1 X10*3/uL (0.0-0.4); Eosinophils Percent Auto 0.9 % (0-4); Hematocrit 31.1 % (42.0-52.0); Imm Gran Abs Auto 0.13 X10*3/uL (0.00-0.03); Imm Gran Pct Auto 0.9 % (0.0-0.4); Lymphocytes Absolute Auto 1.2 X10*3/uL (1.2-4.9); Lymphocytes Percent Auto 8.2 % (20-40); Mean Corpuscular HGB Conc 32.2 g/dl (31.0-36.0); Mean Corpuscular Hemoglobin 28.7 pg (27.0-33.0); Mean Corpuscular Volume 89.1 fL (80.0-98.0); Monocytes Absolute Auto 1.1 X10*3/uL (0.1-1.2); Monocytes Percent Auto 7.1 % (2-11); Neutrophils Absolute Auto 12.5 x10*3/uL (2.0-8.3); Neutrophils Percent Auto 82.5 % (45-73); Platelet Count 323 X10*3/uL (160-400); Red Blood Count 3.49 X10*6/uL (4.60-5.80); Red Cell Distribution Width 15.5 % (11.0-16.0); White Blood Count 15.2 X10*3/uL (4.8-10.8)
[2023-08-30 14:32] LABS: Alanine Aminotransferase 33 U/L (0-40); Albumin Level 3.2 g/dL (3.5-5.0); Alkaline Phosphatase 79 U/L (39-117); Anion Gap 13 (12-20); Aspartate Amino Transferase 27 U/L (5-37); Bilirubin Total 0.2 mg/dL (0.0-1.0); Blood Urea Nitrogen 22 mg/dL (9-16); Calcium 8.4 mg/dL (8.4-10.2); Carbon Dioxide 26 mmol/L (22-29); Chloride 105 mmol/L (96-108); Estimated Glomerular Filt Rate > 60; Glucose Random 94 mg/dL (60-115); Potassium 5.1 mmol/L (3.3-5.1); Sodium 139 mmol/L (135-145); Total Protein 7.4 g/dL (6.5-8.0)
[2023-08-30 14:52] LABS: Erythrocyte Sedimentation Rate 97 MM/HR (0-15)
[2023-08-31 22:33] LABS: Complement C3 57 mg/dL (82-185)
== END 2023-08-30 12:49 | disposition home or self-care (01) ==
LOC: HO.LAB 12:48
PROVIDERS: PCP Pediatrics Adolescent Medicine; Visit Provider Student in an Organized Health Care Education/Training Program
DX: I77.6 Arteritis, unspecified (principal)
CPT/HCPCS: 36415; 80053; 82550; 85025; 85652; 86140; 86160

== ENCOUNTER 2023-09-04 08:47 | Outpatient (REF) | payer OTHER, SELFPAY ==
[2023-09-04] VITALS (11 sets, daily range): BP systolic 120–132; BP diastolic 56–69; PULSE 73–94; RESP 16–18; TEMP 36.8–36.9; O2SAT 96–98; BMI 26.5
--- NOTE | ~2023-09-04 | CT_ITS ---
Hematuria. Concern for vasculitis versus lupus nephritis PROCEDURES: 1. Limited preprocedure CT of the abdomen. Permanent images saved in PACS. 2. CT-guided non-targeted biopsy of the right kidney. 3. Limited preprocedure CT of the abdomen. Permanent images saved in PACS. CLINICIANS: Justyn Garcia PA-C MEDICATIONS: -Versed 1.5 mg, Fentanyl 75 mcg, and lidocaine 1% 10 mL SQ -Antibiotics: None -For additional details, please see nursing flowsheet. COMPLICATIONS: None ESTIMATED BLOOD LOSS: < 5 ml CONTRAST: None SPECIMENS: 3 x 18 g cores were placed in saline MODERATE SEDATION TIME: 15 min PROCEDURE NOTE: The procedure, risks, benefits, and alternatives were carefully explained to the patient and written informed consent was obtained. The patient was placed prone on the CT table. A timeout was performed. A limited CT of the abdomen was performed to localize the right kidney and choose appropriate needle entry and trajectory. The patient was prepped and draped in usual sterile fashion. The skin and deeper soft tissues were anesthetized with lidocaine. Under CT guidance, a 17 gague trocar needle was advanced to the right kidney. An 18 gauge biopsy device was inserted through the trocar needle and advanced into the right kidney. A total of 3, 18 gague cores were performed. The specimens was placed in saline. A Gelfoam slurry was then administered through the trocar needle and into the kidney. The needle was removed. A dry dressing was applied and secured with Tegaderm. There were no immediate complications. The patient was stable after the procedure and was transferred to the post anesthesia care unit. The procedure was done under moderate sedation with a dedicated nurse for monitoring of vital signs. CT/CT biopsy renal RT Impression: CT-guided non-targeted right renal biopsy This procedure was performed by Justyn Garcia PA-C and supervised by Dr. Ruby.
[2023-09-04 09:36] LABS: MANUAL DIFF FLAG NO
[2023-09-04 09:42] LABS: Basophils Percent Auto 0.3 % (0-2); Hematocrit 32.4 % (42.0-52.0); Hemoglobin 9.8 g/dl (14.0-18.0); Imm Gran Abs Auto 0.59 X10*3/uL (0.00-0.03); Imm Gran Pct Auto 3.9 % (0.0-0.4); Lymphocytes Absolute Auto 1.4 X10*3/uL (1.2-4.9); Lymphocytes Percent Auto 9.1 % (20-40); Mean Corpuscular HGB Conc 30.2 g/dl (31.0-36.0); Mean Corpuscular Hemoglobin 27.7 pg (27.0-33.0); Mean Corpuscular Volume 91.5 fL (80.0-98.0); Mean Platelet Volume 7.9 fL (9.4-12.4); Monocytes Absolute Auto 0.9 X10*3/uL (0.1-1.2); Monocytes Percent Auto 5.6 % (2-11); Neutrophils Absolute Auto 12.4 x10*3/uL (2.0-8.3); Neutrophils Percent Auto 81.1 % (45-73); Platelet Count 334 X10*3/uL (160-400); Red Blood Count 3.54 X10*6/uL (4.60-5.80); Red Cell Distribution Width 15.5 % (11.0-16.0); White Blood Count 15.3 X10*3/uL (4.8-10.8)
[2023-09-04 09:45] LABS: INTERNATIONAL NORM RATIO 1.1 (0.9-1.1); Prothrombin Time 13.3 SEC (11.1-13.3)
[2023-09-04 09:47] LABS: Partial Thromboplastin Time 26.5 SEC (26.0-36.8)
[2023-09-04] MEDS: Lidocaine HCl 1 % 20 ML VIAL 10 ML SUBCUT (11:37)
== END 2023-09-04 15:38 | disposition home or self-care (01) ==
LOC: HO.SSS 08:47
PROVIDERS: Physician Assistant Surgical; PCP Pediatrics Adolescent Medicine; Visit Provider Nurse Practitioner Family
DX: R31.29 Other microscopic hematuria (principal); I77.9 Disorder of arteries and arterioles, unspecified; Z87.74 Personal history of (corrected) congenital malformations of heart and circulatory system
CPT/HCPCS: 36415; 50200; 77012; 85025; 85610; 85730; 86850; 86900; 86901; 88300; 88305; 88313; 88346; 88348; 88350; 99152; 99153; J2250; J2310; J3010

== ENCOUNTER → 2023-09-04 10:41 | Outpatient (BNV) | payer OTHER, SELFPAY | PROVIDERS: PCP Pediatrics Adolescent Medicine; Visit Provider Physician Assistant Surgical | DX: R31.29 Other microscopic hematuria (principal) | CPT/HCPCS: 50200; 77012; 99152 ==

== ENCOUNTER 2023-09-12 12:20 | Outpatient (AMB) | payer OTHER, SELFPAY ==
--- NOTE | 2023-09-12 12:49 | MHC.OFFVIS ---
Intake Vital Signs 09/12/23 12:50 Height 5 ft 11 in Weight 197 lb 15.602 oz BMI 27.6 BP 138/64 Blood Pressure Location Rt brachial Position Sitting Pulse 111 H Pulse Source Pulse Oximeter Pulse Oximetry (%) 96 Oxygen Delivery Method Room Air Intake Visit Reasons: vasculitis/HNE ins inactive Intake Note: Patient last seen 08/30/23 presents today for follow up. Crate Repairer Required: No Accompanied by: Self / Same As Patient Allergies No Known Allergies Allergy (Verified 09/12/23 12:51) Medication List - Last Reconciled 09/12/23 by iLnda Garcia MD aspirin 81 mg PO DAILY famotidine 40 mg PO DAILY prednisone 60 mg (3 x 20 mg) PO DAILY HPI HPI Comments History of Present Illness Details 23-year-old male with vasculitis returns for follow-up. Since starting prednisone 60 mg daily has felt much better overall, no longer coughing up blood, shortness of breath improving, cough improving, he continues to have intermittent cough. He went back to work. However he has been having side effects from prednisone including weight gain, 18 more, acne. Has not had any skin rashes, urine is no longer drug but he has been having some urinary frequency Initial history: This is a 22-year-old male who presents for evaluation of vasculitis. Back in February patient started having dry nonproductive cough with no fevers. Two months later he started having rashes both feet and his legs up to just below his knees. This was associated with some ankle pain and swelling as well as bilateral calf aches. He denies any fevers or chills, no weight loss. 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 He had some dark urine. He was prescribed steroid for 4 days with improvement of his rash. In May he was evaluated by joiner apprentice Dr. Arrieta and had blood work done. He did not go back for follow-up. A CT chest was also ordered which showed multiple ground-glass opacities, but patient had just cleared a COVID infection. Currently patient is having the rash on both legs, not as severe as before. In addition to the dry cough. No other symptoms. No history of DVT/PE. No known family history of an autoimmune rheumatic disease. Of note patient has history of tetralogy of Fallot s/p surgery as an and another surgical procedure 5 years ago. 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 Review of Systems Const Reports weight gain Card Denies dyspnea Resp Reports cough, Denies hemoptysis and Denies dyspnea Skin/Breast Details: Acne Physical Exam Vital Signs: Last Vital Signs Pulse 111 H 09/12/23 12:50 BP 138/64 09/12/23 12:50 Pulse Ox 96 09/12/23 12:50 Oxygen Delivery Method Room Air 09/12/23 12:50 BMI result Body Mass Index 27.6 Const General: cooperative, healthy appearing and comfortable Nutritional Appearance: overweight Orientation/consciousness: patient oriented x3 Limitations: no limitations HEENT Head: Yes normocephalic and Yes atraumatic Resp Other: Intermittent dry cough Effort & Inspection: normal respiratory effort and able to speak in complete sentences Auscultation: diminished lung sounds bilateral in the lower lung hou Cardio Rate: regular rate Heart sounds: Murmur heart sound present systolic GI Inspection: No distended Palpation (GI): Soft to palpation and nontender Skin Other: Acne Neuro General: patient oriented x3 Extrem Other: No active synovitis Assessment & Plan Assessment & Plan (1) Vasculitis: Comment: onset 01/2023 (skin rashes, pneumonitis, nephritis) Code(s): I77.6 - Arteritis, unspecified Plan: This is a 23-year-old male with vasculitis returns for follow-up. Doing much better prednisone 60 mg daily, from a pulmonary standpoint, no longer having hemoptysis, shortness of breath improving. But having some steroid side effects such as weight gain, acne. Kidney biopsy was done last week but has not resulted yet. Differential diagnosis at this stage is SLE versus another small-vessel vasculitis such as IgA vasculitis. Continue with prednisone 60 mg daily for now. 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 Fernandes, counseling patient and documenting in the chart Orders: Orders Complete Blood Count Auto Diff Today I77.6 - Arteritis, unspecified Complement C3 Today I77.6 - Arteritis, unspecified Comprehensive Met. Panel Today I77.6 - Arteritis, unspecified C Reactive Protein Today I77.6 - Arteritis, unspecified Erythrocyte Sedimentation Rate Today I77.6 - Arteritis, unspecified UA w Microscopic Today I77.6 - Arteritis, unspecified Protein Creatinine Ratio, Ur Today I77.6 - Arteritis, unspecified Complement C4 Today I77.6 - Arteritis, unspecified Medications: New cholecalciferol (vitamin D3) 10 mcg PO BID 60 caps 2RF Refilled prednisone 60 mg (3 x 20 mg) PO DAILY 90 tabs 1RF Coding Level of Care Code Est Pt Level 4 (74227) Diagnoses Vasculitis I77.6 ripsaw operator systemic steroid user Z79.52
[2023-09-12 12:50] VITALS: BP 138/64; PULSE 111; O2SAT 96; BMI 27.6
== END 2023-09-12 13:09 | disposition home or self-care (01) ==
PROVIDERS: PCP Pediatrics Adolescent Medicine; Visit Provider Student in an Organized Health Care Education/Training Program
DX: I77.6 Arteritis, unspecified (principal); Z79.52 Long term (current) use of systemic steroids
CPT/HCPCS: 99214

== ENCOUNTER → 2023-09-12 12:20 | Outpatient (BNVA) | payer SELFPAY | PROVIDERS: PCP Pediatrics Adolescent Medicine; Visit Provider Student in an Organized Health Care Education/Training Program | DX: I77.6 Arteritis, unspecified (principal); Z79.52 Long term (current) use of systemic steroids | CPT/HCPCS: 99212 ==

== ENCOUNTER 2023-09-26 11:24 | Outpatient (AMB) | payer OTHER, SELFPAY ==
[2023-09-26 11:31] VITALS: BP 130/80; PULSE 91; O2SAT 99; BMI 28.6
--- NOTE | 2023-09-26 11:31 | HO.NEPHOV ---
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 he had lower extremity rash bilaterally in April 2023. he had associated cough at that time with no fever. He had no abdominal pain at that time. There was no history of macroscopic hematuria at any time. He denied any joint pains or pedal edema. He has seen a brew house supervisor in [place] who ordered some workup but has not had a follow-up after that. His serum creatinine has been fairly stable with normal blood pressure. His rash had faded away but to recur again recently on the dorsum of both feet, purpuric in nature which even now has started to fade. He has microscopic hematuria but had no significant proteinuria even in May 2023. 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 His cryoglobulin was presumed to be positive but it was not repeated. His complement levels C3 was 76 and 79 in April and May but had improved to 1.9 on 06/05/2023. His C4 levels were 9 and 8 on 28 of April and 17 of May but had improved to 15 on 06/05/2023. His C-reactive protein was 4.9 on 04/28/2023 which had improved to 4.5 on 17 of May which had settled to 2.7 on 06/05/2023. His ESR on 06/05/2023 was 51. His serum creatinine was 1 on 06/05/2023. He had COVID infection in June of 2023 consisted mostly of upper respiratory symptoms. He does have a lingering dry cough. One over documentation in [facility] mentions that he had had just be vasculitis treated with steroids around . 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 Danilo Fuchs. He had a reoperative sternotomy with the pulmonary valve replacement using a pericardial tissue valve in January of 2019. He is being treated with prednisone and cellcept by Doctor Of Nurse Anesthesia. His rashes had gone but is back now. 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 Vital Signs 09/26/23 11:31 Height 5 ft 11 in Weight 205 lb 2 oz BMI 28.6 BP 130/80 Blood Pressure Location Rt brachial Position Sitting Pulse 91 Pulse Source Pulse Oximeter Pulse Oximetry (%) 99 Oxygen Delivery Method Room Air Physical Exam Vital Signs: Last Vital Signs Pulse 91 09/26/23 11:31 BP 130/80 09/26/23 11:31 Pulse Ox 99 09/26/23 11:31 Oxygen Delivery Method Room Air 09/26/23 11:31 BMI result Body Mass Index 28.6 Const General: comfortable and no acute distress Orientation/consciousness: patient oriented x3 HEENT Head: Yes normocephalic Mouth: Normal oral and palatal mucosa present Eyes EOM: EOMs intact bilaterally Neck Neck: Yes supple Resp Auscultation: clear to auscultation bilaterally Cardio Jugular venous distension: no JVD Rate: regular rate GI Palpation (GI): Soft to palpation Auscultation: normal bowel sounds General: Yes no CVA tenderness Back/Spine/Pelvis Back: no CVA tenderness Skin General skin exam: no rashes or lesions noted Neuro General: patient oriented x3 and moves all extremities Extrem General: Yes no pedal edema Assessment & Plan Assessment & Plan (1) Microscopic hematuria: Code(s): R31.29 - Other microscopic hematuria (2) Proteinuria: Code(s): R80.9 - Proteinuria, unspecified Qualifiers: Proteinuria type: other Qualified Code(s): R80.8 - Other proteinuria (3) Vasculitis: Comment: onset 01/2023 (skin rashes, pneumonitis, nephritis) Code(s): I77.6 - Arteritis, unspecified Plan 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 His complements were low with microscopic hematuria without any significant proteinuria and stable renal function. His blood pressure at that time was normal. He had recurrence of the rash now. He has no GI symptoms, sore throat, microscopic hematuria. He has microscopic hematuria but had no significant proteinuria even in May 2023. 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 His cryoglobulin was presumed to be positive but it was not repeated. His complement levels C3 was 76 and 79 in April and May but had improved to 1.9 on 06/05/2023. His C4 levels were 9 and 8 on 28 of April and 17 of May but had improved to 15 on 06/05/2023. His C-reactive protein was 4.9 on 04/28/2023 which had improved to 4.5 on 17 of May which had settled to 2.7 on 06/05/2023. His ESR on 06/05/2023 was 51. His serum creatinine was 1 on 06/05/2023. His renal functions had been stable. His renal biospy showed IgA vasculitis. He is on prednisone and cellcept. We may have to go up on Cellcept to 1 Gram bid. ( still getting rash). He has a chest CT this Sunday and PFT end of October. Labs today. Further management is pending evolving data. Answered all questions. Follow-up given Orders: Orders Creatinine Today I77.6 - Arteritis, unspecified, R31.29 - Other microscopic hematuria, R80.8 - Other proteinuria Electrolytes Today I77.6 - Arteritis, unspecified, R31.29 - Other microscopic hematuria, R80.8 - Other proteinuria UA and rflx microscopic Today I77.6 - Arteritis, unspecified, R31.29 - Other microscopic hematuria, R80.8 - Other proteinuria Protein Creatinine Ratio, Ur Today I77.6 - Arteritis, unspecified, R31.29 - Other microscopic hematuria, R80.8 - Other proteinuria Blood Urea Nitrogen Today I77.6 - Arteritis, unspecified, R31.29 - Other microscopic hematuria, R80.8 - Other proteinuria Coding Level of Care Code Est Pt Level 4 (27981) Diagnoses Microscopic hematuria R31.29 Other proteinuria R80.8 Proteinuria type: other Vasculitis I77.6 Results Reviewed Nephrology Results: Hgb 9.8 g/dl (14.0-18.0) L 09/04/23 WBC 15.3 X10*3/uL (4.8-10.8) H 09/04/23 Plt Count 334 X10*3/uL (160-400) 09/04/23 Sodium 139 mmol/L (135-145) 08/30/23 Potassium 5.1 mmol/L (3.3-5.1) 08/30/23 Chloride 105 mmol/L (96-108) 08/30/23 Carbon Dioxide 26 mmol/L (22-29) 08/30/23 BUN 22 mg/dL (9-16) H 08/30/23 Creatinine 1.06 mg/dL (0.5-1.4) 08/30/23 Calcium 8.4 mg/dL (8.4-10.2) 08/30/23 Urine Protein 100 (2+) mg/dL (Neg-Trace) H 08/29/23 Urine Creatinine 289.27 mg/dL 08/29/23 Protein/Creatinin Ratio 0.40 (<0.2) H 08/29/23
== END 2023-09-26 12:00 | disposition home or self-care (01) ==
PROVIDERS: PCP Pediatrics Adolescent Medicine; Visit Provider Internal Medicine Nephrology
DX: R31.29 Other microscopic hematuria (principal); R80.8 Other proteinuria; I77.6 Arteritis, unspecified
CPT/HCPCS: 99214

== ENCOUNTER → 2023-09-26 11:24 | Outpatient (BNVA) | payer BC, OTHER, SELFPAY | PROVIDERS: PCP Pediatrics Adolescent Medicine; Visit Provider Internal Medicine Nephrology | DX: R31.29 Other microscopic hematuria (principal); R80.8 Other proteinuria; I77.6 Arteritis, unspecified | CPT/HCPCS: 99212 ==

== ENCOUNTER 2023-09-26 12:15 | Outpatient (REF) | payer BC, OTHER, SELFPAY ==
[2023-09-26 13:41] LABS: Appearance Urine Cloudy; Color Urine Dark Yellow; Glucose Urine UA Negative (Negative); Leukocyte Esterase Urine Small (1+) (Negative); Nitrite Urine Negative (Negative); PH 5.5 (5.0-9.0); Specific Gravity - Urine 1.025 (1.005-1.025); UMIC TRIGGER UA YES; Urine Blood Large (3+) (Negative); Urine Ketones Negative (Negative); Urine Protein 100 (2+) mg/dL (Neg-Trace)
[2023-09-26 13:49] LABS: Bacteria Urine None Seen (None Seen); Hyaline Casts Urine 0-2 /LPF (0-2); RBC Urine >20 /HPF (0-2); WBC Urine 21-50 /HPF (0-5)
[2023-09-26 14:11] LABS: Anion Gap 11 (12-20); Blood Urea Nitrogen 17 mg/dL (9-16); Carbon Dioxide 28 mmol/L (22-29); Chloride 104 mmol/L (96-108); Estimated Glomerular Filt Rate > 60; Potassium 4.7 mmol/L (3.3-5.1); Sodium 138 mmol/L (135-145)
[2023-09-26 14:28] LABS: Creatinine Urine 182.77 mg/dL; Protein/Creatinine Ratio, Ur 0.34 (<0.2); Total Protein Urine Random 62 mg/dL (<12)
== END 2023-09-26 12:16 | disposition home or self-care (01) ==
LOC: HO.10HDL 12:15
PROVIDERS: Visit Provider Internal Medicine Nephrology
DX: I77.6 Arteritis, unspecified (principal); R31.29 Other microscopic hematuria; R80.8 Other proteinuria
CPT/HCPCS: 36415; 80051; 81001; 81003; 82565; 82570; 84156; 84520

== ENCOUNTER 2023-09-28 14:57 | Outpatient (REF) | payer BC, OTHER, SELFPAY ==
--- NOTE | ~2023-09-28 | XR_ITS ---
EXAMINATION: XR CHEST CLINICAL INFORMATION: Hemoptysis. COMPARISON: CT angios chest September 28, 2023. Chest radiograph 08/02/2023. TECHNIQUE: 2 views of the chest were obtained. FINDINGS: There is no gross pneumothorax. Enlarged cardiac silhouette with redemonstration of prominence of the bilateral fide, demonstrated to correlate with prominent pulmonary arteries on CT scan. Median sternotomy wires with prosthetic valve. As previously noted, several median sternotomy wires are broken. Moderate patchy opacities, left greater than right, were better characterized on CT chest of 09/28/2023. Redemonstration of small left pleural effusion. XR/XR chest 2V IMPRESSION: Moderate patchy opacities, left greater than right, were better characterized on CT chest of 09/28/2023. Redemonstration of small left pleural effusion.
--- NOTE | ~2023-09-28 | CT_ITS ---
EXAMINATION: CT ANGIOGRAM OF THE CHEST WITH AND WITHOUT CONTRAST (CT PULMONARY ANGIOGRAM FOR PE) CLINICAL INFORMATION: Reason for Exam R04.2 - Hemoptysis COMPARISON: 06/28/[address], images only TECHNIQUE: Prior to contrast administration, noncontrast localization images were obtained. Subsequently, multidetector volumetric imaging was performed from the thoracic inlet to below the diaphragms following the administration of 80 mL Omnipaque 350 intravenous contrast. No contrast reaction reported Sagittal, coronal, and MIP oblique sagittal reformatted images were obtained on the CT workstation, uploaded to PACS, and reviewed. This CT examination was performed using dose optimization techniques as appropriate, variously including the following: *Automated exposure control *Adjustment of mA and/or kV according to patient size (this includes techniques or standardized protocols for targeted exams where dose is matched to indication/reason for exam; i.e. extremities or head) *Use of iterative reconstruction technique Total exam dose-length product 133 mGy-cm FINDINGS: IMAGING SYSTEM ADMINISTRATOR: Left lateral prosthetic valve and median sternotomy wires. Mildly prominent heart and central vasculature. QUALITY OF STUDY/CONTRAST BOLUS: Centrally and segmental branches, limited evaluation of the subsegmental branches. PULMONARY ARTERIES: No pulmonary emboli. HEART AND THORACIC AORTA: Heart is enlarged. Pulmonary prosthetic valve is seen. Main and central pulmonary arteries are dilated, main pulmonary artery measuring 3.7 cm. There are multiple small intraluminal filling defects in the main and left main pulmonary arteries. Evaluation of the right main pulmonary artery limited due to artifact from heavily contrast opacities all lines superior vena cava. Interval development of 2 right lower lobe pulmonary arterial aneurysms, smaller measuring 7 mm, coronal 67/120, larger measuring 1.2 cm, axial 396/575. No convincing evidence of arterial venous communications. These were not identified on June 2023 study. CORONARY ARTERY CALCIFICATION: None visualized on this study. LUNGS: Trachea and bronchi are patent. On previous study, right apical and right upper posterolateral peripheral shaggy opacities with cavitation seen. Both findings are not currently appreciated but multiple new peripheral opacities are seen, some cavitated, some more consolidative in appearance involving bilateral upper and lower lobes. Largest consolidative opacities are seen in the medial left upper lobe. PLEURA: Small left pleural effusion. No pneumothorax.. MEDIASTINUM: Unremarkable thyroid. Nonspecific mediastinal and right hilar lymph nodes. CHEST WALL/AXILLA: Gynecomastia. No axillary or internal mammary lymphadenopathy. OSSEOUS STRUCTURES: No suspicious osseous lesions. UPPER ABDOMEN: Enlarged low density liver and splenomegaly. CT/CT angio chest PE protocol IMPRESSION: Small filling defects in main and left main pulmonary arteries in the setting of pulmonary valve replacement. Multiple cavitary and noncavitary fairly peripherally distributed pulmonary opacities. Constellation of findings suggest possible prosthetic seeding with bland central pulmonary emboli and septic emboli. Pulmonary thromboembolism not excluded. Laith's granulomatosis, other collagen vascular disease or vasculitides day produce similar pulmonary findings. Review of previous CT biopsy of the right kidney was performed due to concern for vasculitis or lupus nephritis, pathology results have not been provided. Interval development of right lower lobe pulmonary arterial aneurysms which can be associated with pulmonary hypertension, congenital heart disease and vasculitides. Mycotic aneurysms also not excluded. VTE: Indeterminate Findings discussed with Dr. Kennedy by phone on 09/27 at 5:19 PM.
[2023-09-28 15:33] LABS: Basophils Percent Auto 0.2 % (0-2); Hematocrit 31.5 % (42.0-52.0); Hemoglobin 10.1 g/dl (14.0-18.0); Imm Gran Abs Auto 0.35 X10*3/uL (0.00-0.03); Imm Gran Pct Auto 1.5 % (0.0-0.4); Lymphocytes Absolute Auto 0.7 X10*3/uL (1.2-4.9); Lymphocytes Percent Auto 2.8 % (20-40); MANUAL DIFF FLAG SCAN; Mean Corpuscular HGB Conc 32.1 g/dl (31.0-36.0); Mean Corpuscular Volume 90.5 fL (80.0-98.0); Mean Platelet Volume 8.3 fL (9.4-12.4); Monocytes Absolute Auto 0.5 X10*3/uL (0.1-1.2); Monocytes Percent Auto 1.9 % (2-11); Neutrophils Absolute Auto 22.5 x10*3/uL (2.0-8.3); Neutrophils Percent Auto 93.6 % (45-73); Platelet Count 359 X10*3/uL (160-400); Red Blood Count 3.48 X10*6/uL (4.60-5.80); Red Cell Distribution Width 15.6 % (11.0-16.0); SCAN SMEAR FLAG 1
[2023-09-28] MEDS: iohexoL 350 MG/ML 100 ML INFUS..BTL IV (15:49)
[2023-09-28 16:05] LABS: Erythrocyte Sedimentation Rate 95 MM/HR (0-15)
[2023-09-28 16:21] LABS: Creatinine Urine 176.19 mg/dL
[2023-09-28 16:26] LABS: SLIDE REVIEW VERIFIED
[2023-09-28 16:28] LABS: Alanine Aminotransferase 19 U/L (0-40); Albumin Level 3.2 g/dL (3.5-5.0); Alkaline Phosphatase 79 U/L (39-117); Anion Gap 11 (12-20); Aspartate Amino Transferase 19 U/L (5-37); Bilirubin Total 0.2 mg/dL (0.0-1.0); Blood Urea Nitrogen 18 mg/dL (9-16); C Reactive Protein 18.32 mg/dL (< or = 0.50); Calcium 8.7 mg/dL (8.4-10.2); Carbon Dioxide 26 mmol/L (22-29); Chloride 105 mmol/L (96-108); Estimated Glomerular Filt Rate > 60; Glucose Random 190 mg/dL (60-115); Sodium 137 mmol/L (135-145); Total Protein 7.1 g/dL (6.5-8.0)
[2023-09-28 17:28] LABS: Protein/Creatinine Ratio, Ur 1.16 (<0.2); Total Protein Urine Random 205 mg/dL (<12)
[2023-09-28 17:39] LABS: Bacteria Urine None Seen (None Seen); Hyaline Casts Urine 0-2 /LPF (0-2); RBC Urine >20 /HPF (0-2); Squamous Epithelial Cell Urine 0-2 /HPF (0-2); WBC Urine >50 /HPF (0-5)
[2023-09-28 17:40] LABS: Appearance Urine Turbid; Color Urine Dark Yellow; Glucose Urine UA Negative (Negative); Leukocyte Esterase Urine Moderate (2+) (Negative); Nitrite Urine Negative (Negative); Specific Gravity - Urine 1.025 (1.005-1.025); UMIC TRIGGER UA YES; Urine Blood Large (3+) (Negative); Urine Ketones Negative (Negative); Urine Protein 300 (3+) mg/dL (Neg-Trace)
[2023-10-03 11:59] LABS: Complement C3 51 mg/dL (82-185)
== END 2023-09-28 14:58 | disposition home or self-care (01) ==
LOC: HO.CT 14:57
PROVIDERS: Absent Provider Student in an Organized Health Care Education/Training Program; PCP Pediatrics Adolescent Medicine; Visit Provider Nurse Practitioner Family
DX: I77.6 Arteritis, unspecified (principal); R04.2 Hemoptysis; R93.89 Abnormal findings on diagnostic imaging of other specified body structures
CPT/HCPCS: 36415; 71046; 71275; 80053; 81001; 82570; 84156; 85025; 85652; 86140; 86160; Q9967

== ENCOUNTER 2023-10-02 12:36 | Outpatient (AMB) | payer BC, OTHER, SELFPAY ==
--- NOTE | 2023-10-02 12:42 | A.OFFVIS_ITS ---
Vital Signs 10/02/23 12:43 Height 5 ft 11 in Weight 204 lb 9.423 oz BMI 28.5 BP 132/68 Blood Pressure Location Rt brachial Position Sitting Pulse 96 Pulse Source Pulse Oximeter Pulse Oximetry (%) 99 Oxygen Delivery Method Room Air Intake Visit Reasons: vasculitis Intake Note: Patient last seen 09/12/23 presents today for follow up and test results. Reports rash and cough are back. 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 Take 1 tab twice daily for 1 week, 2 tabs in the morning, 1 tab at night for 1 week then remain on 2 tabs Twice daily prednisone 60 mg (3 x 20 mg) PO DAILY HPI Comments Details: 23-year-old male with vasculitis returns for follow-up. He remains on prednisone 60 mg daily. Now on mycophenolate mofetil 1000 mg Twice daily. States that the skin rash has come back as well as intermittent pain of his calves. Continues to have intermittent cough, mostly dry, sometimes mucus mixed with specks of blood. Has not coughed up any dom blood. Continues to have side effects from steroids such as weight gain, jitteriness and acne. He received a call from his .net programmer to schedule an appointment but has not been scheduled yet Initial history: This is a 22-year-old male who presents for evaluation of vasculitis. Back in February patient started having dry nonproductive cough with no fevers. Two months later he started having rashes both feet and his legs up to just below his knees. This was associated with some ankle pain and swelling as well as bilateral calf aches. He denies any fevers or chills, no weight loss. 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 He had some dark urine. He was prescribed steroid for 4 days with improvement of his rash. In May he was evaluated by blocker automatic Dr. Arrieta and had blood work done. He did not go back for follow-up. A CT chest was also ordered which s howed multiple ground-glass opacities, but patient had just cleared a COVID infection. Currently patient is having the rash on both legs, not as severe as before. In addition to the dry cough. No other symptoms. No history of DVT/PE. No known family history of an autoimmune rheumatic disease. Of note patient has history of tetralogy of Fallot s/p surgery as an and another surgical procedure 5 years ago. 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 Review of Systems Const Reports weight gain Resp Reports cough and Denies hemoptysis Skin/Breast Details: Acne Reports rash Physical Exam Vital Signs: Last Vital Signs Pulse 96 10/02/23 12:43 BP 132/68 10/02/23 12:43 Pulse Ox 99 10/02/23 12:43 Oxygen Delivery Method Room Air 10/02/23 12:43 BMI result Body Mass Index 28.5 Const General: cooperative, healthy appearing and comfortable Nutritional Appearance: overweight Orientation/consciousness: patient oriented x3 Limitations: no limitations HEENT Head: Yes normocephalic and Yes atraumatic Resp Other: Intermittent dry cough Effort & Inspection: normal respiratory effort and able to speak in complete sentences Auscultation: diminished lung sounds bilateral in the lower lung hou Cardio Rate: regular rate Heart sounds: Murmur heart sound present systolic GI Inspection: No distended Palpation (GI): Soft to palpation and nontender Skin Other: Acne on face, arms and forearms Recurrence of HSP rash on legs Neuro General: patient oriented x3 Extrem Other: No active synovitis Results Reviewed Results Reviewed: CT/CT angio chest PE protocol IMPRESSION: Small filling defects in main and left main pulmonary arteries in the setting of pulmonary valve replacement. Multiple cavitary and noncavitary fairly peripherally distributed pulmonary opacities. Constellation of findings suggest possible prosthetic seeding with bland central pulmonary emboli and septic emboli. Pulmonary thromboembolism not excluded. Laith's granulomatosis, other collagen vascular disease or vasculitides day produce similar pulmonary findings. Review of previous CT biopsy of the right kidney was performed due to concern for vasculitis or lupus nephritis, pathology results have not been provided. Interval development of right lower lobe pulmonary arterial aneurysms which can be associated with pulmonary hypertension, congenital heart disease and vasculitides. Mycotic aneurysms also not excluded. VTE: Indeterminate Assessment & Plan Assessment & Plan (1) Vasculitis: Comment: onset 01/2023 (skin rashes, pneumonitis, nephritis) kidney biopsy consistent with HSP/IgA nephropathy Code(s): I77.6 - Arteritis, unspecified Category: Medical Plan: This is a 23-year-old male with vasculitis returns for follow-up. 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 Patient has been on 60 mg of prednisone for about 1 month now without much improvement. He has also been on mycophenolate mofetil for the last 2 weeks. He continues to have cough productive of sputum mixed with blood. He did not have any dom hemoptysis. His vasculitic rash on his legs has come back. Continues to have the same hematuria and proteinuria. He has developed significant side effects to steroids including weight gain, acne, anxiety Recent CTA of the chest showed interval development of pulmonary aneurysms and multiple filling defects. Compared to CT chest 06/2023. My suspicion is that patient has developed pulmonary vasculitis. I think patient needs more aggressive treatment. For now. Will arrange for 1 g pulse IV Solu-Medrol x3 days. Either in the same day unit or admit patient. Patient needs a more aggressive DMARD. Rituximab was denied but I think given progression of his pulmonary manifestations, failure of 60 mg of prednisone and mycophenolate to halt the progression of his vasculitis. I believe rituximab would be reasonable option. There have been multiple case reports that showed success. https://pubmed.ncbi.nlm.nih.gov/24499982/ https://pubmed.ncbi.nlm.nih.gov/28832701/ https://pubmed.ncbi.nlm.nih.gov/35198279/ After a 3 day pulse steroids. Continue with 60 mg daily. 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
[2023-10-02 12:43] VITALS: BP 132/68; PULSE 96; O2SAT 99; BMI 28.5
== END 2023-10-02 13:27 | disposition home or self-care (01) ==
PROVIDERS: PCP Pediatrics Adolescent Medicine; Visit Provider Student in an Organized Health Care Education/Training Program
DX: I77.6 Arteritis, unspecified (principal); Z79.52 Long term (current) use of systemic steroids
CPT/HCPCS: 99215; 99417

== ENCOUNTER → 2023-10-02 12:36 | Outpatient (BNVA) | payer BC, OTHER, SELFPAY | PROVIDERS: PCP Pediatrics Adolescent Medicine; Visit Provider Student in an Organized Health Care Education/Training Program | DX: I77.6 Arteritis, unspecified (principal); Z79.52 Long term (current) use of systemic steroids | CPT/HCPCS: 99212 ==

== ENCOUNTER 2023-10-05 07:30 | Outpatient (RCR) | payer BC, OTHER, SELFPAY ==
[2023-10-03 13:21] VITALS: BP 126/67; PULSE 100; RESP 18; TEMP 37.2; O2SAT 98
[2023-10-03] MEDS: methylPREDNISolone Sod Succ 1,000 MG in 0.9 % Sodium Chloride 100 ML 66 MG IV (13:31)
[2023-10-04 13:55] VITALS: BP 124/69; PULSE 64; RESP 16; TEMP 37.1; O2SAT 99
[2023-10-04] MEDS: methylPREDNISolone Sod Succ 1,000 MG in 0.9 % Sodium Chloride 100 ML 66 MG IV (14:12)
[2023-10-04] MEDS: 0.9 % Sodium Chloride Flush 10 ML SYRINGE 5 ML IVFLUSH (14:12)
[2023-10-05 07:26] VITALS: BP 129/75; PULSE 66; RESP 16; TEMP 36.9; O2SAT 97
[2023-10-05] MEDS: 0.9 % Sodium Chloride Flush 10 ML SYRINGE 5 ML IVFLUSH (07:38)
[2023-10-05] MEDS: methylPREDNISolone Sod Succ 1,000 MG in 0.9 % Sodium Chloride 100 ML 66 MG IV (07:38)
== END 2023-10-05 09:03 | disposition home or self-care (01) ==
LOC: HO.INF 07:30
PROVIDERS: Visit Provider Student in an Organized Health Care Education/Training Program
DX: I77.6 Arteritis, unspecified (principal)
CPT/HCPCS: 96365; J2919

== ENCOUNTER 2023-10-10 14:12 | Outpatient (REF) | payer BC, OTHER, SELFPAY ==
[2023-10-10 14:49] LABS: Basophils Absolute Auto 0.1 X10*3/uL (0.0-0.2); Basophils Percent Auto 0.2 % (0-2); Hematocrit 32.3 % (42.0-52.0); Hemoglobin 9.9 g/dl (14.0-18.0); Imm Gran Abs Auto 0.85 X10*3/uL (0.00-0.03); Lymphocytes Absolute Auto 0.4 X10*3/uL (1.2-4.9); Lymphocytes Percent Auto 1.8 % (20-40); MANUAL DIFF FLAG SCAN; Mean Corpuscular HGB Conc 30.7 g/dl (31.0-36.0); Mean Corpuscular Hemoglobin 28.4 pg (27.0-33.0); Mean Corpuscular Volume 92.8 fL (80.0-98.0); Mean Platelet Volume 8.4 fL (9.4-12.4); Monocytes Absolute Auto 0.8 X10*3/uL (0.1-1.2); Monocytes Percent Auto 3.5 % (2-11); Neutrophils Absolute Auto 19.4 x10*3/uL (2.0-8.3); Neutrophils Percent Auto 90.5 % (45-73); Platelet Count 318 X10*3/uL (160-400); Red Blood Count 3.48 X10*6/uL (4.60-5.80); Red Cell Distribution Width 15.6 % (11.0-16.0); SCAN SMEAR FLAG 1; White Blood Count 21.4 X10*3/uL (4.8-10.8)
[2023-10-10 15:13] LABS: SLIDE REVIEW VERIFIED
[2023-10-10 15:33] LABS: Alanine Aminotransferase 18 U/L (0-40); Albumin Level 3.1 g/dL (3.5-5.0); Alkaline Phosphatase 78 U/L (39-117); Anion Gap 12 (12-20); Aspartate Amino Transferase 14 U/L (5-37); Bilirubin Total 0.2 mg/dL (0.0-1.0); Blood Urea Nitrogen 21 mg/dL (9-16); Calcium 8.8 mg/dL (8.4-10.2); Carbon Dioxide 27 mmol/L (22-29); Chloride 108 mmol/L (96-108); Estimated Glomerular Filt Rate > 60; Glucose Random 129 mg/dL (60-115); Potassium 5.9 mmol/L (3.3-5.1); Sodium 141 mmol/L (135-145); Total Protein 6.5 g/dL (6.5-8.0)
[2023-10-18 15:18] LABS: HLA B51 Comments See Comments; HLA B51 Method PCR SSOP
== END 2023-10-10 14:13 | disposition home or self-care (01) ==
LOC: HO.LAB 14:12
PROVIDERS: PCP Pediatrics Adolescent Medicine; Visit Provider Student in an Organized Health Care Education/Training Program
DX: I77.6 Arteritis, unspecified (principal); M35.2 Behcet's disease
CPT/HCPCS: 36415; 80053; 81374; 85025

== ENCOUNTER 2023-10-12 13:21 | Outpatient (AMB) | payer BC, OTHER, SELFPAY ==
--- NOTE | 2023-10-12 13:13 | A.OFFVIS_ITS ---
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 He was initially referred by PCP for pulmonary evaluation for persistent cough. He reports dry cough that began late summer/early fall with associated BLE rash. Chest CT from 07/04 was performed when patient was recovering from COVID, imaging with multiple ground glass opacities. At the last visit, he was sent for PFT, however in the interim patient developed hemoptysis, sent for CTA which revealed pulmonary aneurysms and multiple filling defects. Urgent referral placed back to packing machine operator at [facility] to evaluate. He states his appointment is scheduled for March, however our office is attempting to schedule sooner. Since the last visit, he has been evaluated by rheumatology, Dr. Garcia, and nephrology Dr. Fernandes, undergoing kidney biopsy and ultimately diagnosed with IgA nephropathy/ vasculitis. He was started on 60 mg of prednisone and cellcept, however vasculitis continued to be suboptimally controlled. He recently had pulse dose of 1000 mg of solumedrol on 10/04-10/07 and has been started on rituximab last week, will have a total of 4 infusions, then reevaluate per patient. He notes that his BLE rash is improving, but his cough is starting to worsen. He reports cough is dry and denies any hemoptypsis. He is aware if he develops hemoptysis that is a teaspoon or more to seek emergent care. Of note, he did report monitoring his heart rate with a smart watch and has been more tachycardic. He stated one day this week his HR was 120 upon awakening then 150 with minimal exertion. He denied any chest pain, dizziness or palpitations at that time. VSS at this visit, and patient denies any cardiac symptoms. His last EKG was reportedly July, which is when he was last evaluated by Dr. Hall's office. [facility] Medical History (Updated 10/15/23 @ 08:31 by Haley Richard NP) Tetralogy of Fallot Proteinuria Vasculitis Surgical History History of open heart surgery Family History Maternal Grandmother Diabetes Paternal Grandfather Diabetes Social History Alcohol intake: never Patient Tobacco Use Status: Never used Tobacco Current occupational status: employed Current occupation: [employer] Review of Systems Const Denies chills, Denies excessive sweating, Denies fever(s), Denies headache(s) and Denies night sweats Eyes Denies dry eyes, Denies irritation and Denies itchy eyes ENT Reports Normal hearing present, Denies headache(s), Denies nasal congestion, Denies nasal discharge, Denies post nasal drip and Denies sore throat Card Denies chest pain, Denies chest pain at rest, Denies chest pain with activity, Denies claudication, Denies leg edema, Denies dyspnea, Denies dyspnea on exertion, Denies orthopnea and Denies paroxysmal nocturnal dyspnea Resp Denies chest congestion, Reports cough, Denies excessive phlegm production, Denies pain on inspiration, Denies pain with cough, Denies dyspnea, Denies dyspnea on exertion, Denies stridor and Denies wheezing Musc Denies myalgias Neuro Reports Normal hearing present and Denies headache(s) Endo Denies excessive sweating Tejinder/Lymph Denies lymphadenopathy Aller/Immun Denies itchy eyes, Denies seasonal rhinorrhea and Denies wheezing Physical Exam Vital Signs: Last Vital Signs Pulse 89 10/12/23 13:22 BP 102/58 L 10/12/23 13:22 Pulse Ox 97 10/12/23 13:22 Oxygen Delivery Method Room Air 10/12/23 13:22 BMI result Body Mass Index 28.2 Const General: cooperative, healthy appearing, comfortable, no acute distress, well developed and alert Orientation/consciousness: patient oriented x3 Limitations: no limitations HEENT Head: Yes normal to inspection, Yes normocephalic and Yes atraumatic Ears: hearing grossly normal bilaterally and external ears normal Eyes General: appearance normal, both eyes and all related structures Eyelids: Yes eyelids normal Sclerae: sclerae normal EOM: EOMs intact bilaterally Neck Neck: Yes normal visual inspection and Yes no lymphadenopathy Lymphatic: no lymphadenopathy noted Chest Chest palpation & inspection: normal inspection of the chest Resp Effort & Inspection: normal respiratory effort, able to speak in complete sentences, no audible wheezes, no cough, no stridor, not tachypneic, no tripod positioning and no use of accessory muscles Auscultation: clear to auscultation bilaterally Cardio Jugular venous distension: no JVD Rate: regular rate Rhythm: regular rhythm Skin Other: warm, dry General skin exam: no rashes or lesions noted Neuro General: patient oriented x3 Cranial nerves: Yes Normal hearing present Cognition (Neuro): normal cognition Gait exam (Neuro): Normal gait present Extrem General: Yes normal to inspection, Yes capillary refill normal, Yes no clubbing, cyanosis or edema and Yes no pedal edema Psych Appearance: grossly normal and well kempt Speech and movement: Normal speech and movement present and Clear speech present Affect: normal affect Attitude: cooperative Thought process: Normal thought process present Thought content: Normal thought content present Insight: Good insight present (Psych) Judgement: Good judgement present (Psych) Assessment & Plan Assessment & Plan (1) Vasculitis: Code(s): I77.6 - Arteritis, unspecified Category: Medical (2) 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 He is currently receiving 60 mg of prednisone and recently recieved his first dose of Rituximab after failure to improve with cellcept. He is following closely with rheumatology to assess response to treatment regimen. He notes his BLE rash is improving however cough is slowly becoming more persistent. He denies any hemoptypsis, or other associated respiratory symptoms. Discussed importance of seeking emergent care if he develops any hemoptysis given abnormalities of pulmonary aneurysms found on recent CTA.Will repeat chest CTA after he has been on current regimen for two months to assess for any radiographic improvements. At this time, there is minimal to offer in regards to treatment for cough, given his current medication regimen. He denies any symptoms suggestive of an infectious process contributing to cough, therefore no antibiotics are warranted at this time. Can offer tessalon silvia to see if this will minimize cough. In regards to tachycardia, will send for EKG to evaluate. Will reach out to packing machine operator to see if patient can be seen for a sooner appointment than March. Will hold off on PFT until evaluation with packing machine operator. All questions were answered and patient is in agreement of plan. Will follow up in 4-6 weeks or sooner if needed. Orders: Orders CT angio chest PE protocol 6 Weeks I28.1 - Aneurysm of pulmonary artery ECG 12 lead EKG 10/12/23 R00.0 - Tachycardia, unspecified Coding Level of Care Code Est Pt Level 4 (46701) Diagnoses Vasculitis I77.6 national coverage specialist systemic steroid user Z79.52 Aneurysm of pulmonary artery I28.1 Tetralogy of Fallot Q21.3 Tachycardia R00.0
[2023-10-12 13:22] VITALS: BP 102/58; PULSE 89; O2SAT 97; BMI 28.2
== END 2023-10-12 13:55 | disposition home or self-care (01) ==
PROVIDERS: PCP Pediatrics Adolescent Medicine; Visit Provider Nurse Practitioner Family
DX: I77.6 Arteritis, unspecified (principal); Z79.52 Long term (current) use of systemic steroids; I28.1 Aneurysm of pulmonary artery; Q21.3 Tetralogy of Fallot; R00.0 Tachycardia, unspecified
CPT/HCPCS: 99214

== ENCOUNTER → 2023-10-12 13:21 | Outpatient (BNVA) | payer OTHER, SELFPAY | PROVIDERS: PCP Pediatrics Adolescent Medicine; Visit Provider Nurse Practitioner Family ==

== ENCOUNTER → 2023-10-16 08:19 | Outpatient (REF) | payer BC, OTHER, SELFPAY ==
--- NOTE | 2023-10-16 08:26 | ECG_ITS ---
Test Reason : TACHYCARDIA Blood Pressure : / mmHG Vent. Rate : 098 BPM Atrial Rate : 098 BPM P-R Int : 098 ms QRS Dur : 102 ms QT Int : 340 ms P-R-T Axes : 065 074 067 degrees QTc Int : 434 ms Sinus rhythm with short [place] Nonspecific ST abnormality Abnormal ECG No previous ECGs available Referred By: Haley Richard Electronically Signed By:Warner Krishnan
== END ==
LOC: HO.CARD 08:19
PROVIDERS: PCP Pediatrics Adolescent Medicine; Visit Provider Nurse Practitioner Family
DX: R00.0 Tachycardia, unspecified (principal)
CPT/HCPCS: 93005

== ENCOUNTER → 2023-10-16 08:26 | Outpatient (BNV) | payer BC, OTHER, SELFPAY | PROVIDERS: PCP Pediatrics Adolescent Medicine; Visit Provider Internal Medicine Cardiovascular Disease | DX: R00.0 Tachycardia, unspecified (principal) | CPT/HCPCS: 93010 ==

== ENCOUNTER 2023-10-24 14:11 | Outpatient (AMB) | payer OTHER, SELFPAY ==
--- NOTE | 2023-10-24 14:12 | MHC.OFFVIS ---
Vital Signs 10/24/23 14:18 Height 5 ft 11 in Weight 201 lb 15.095 oz BMI 28.2 BP 136/68 Blood Pressure Location Rt brachial Position Sitting Pulse 96 Pulse Source Pulse Oximeter Pulse Oximetry (%) 98 Oxygen Delivery Method Room Air Intake Visit Reasons: vasculitis Intake Note: Patient last seen 10/02/23 presents today for follow up and test results. 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 He has received 3 of the 4 scheduled rituximab infusions. Infusions were generally uneventful. Well-tolerated. He remains on prednisone 60 mg daily. States that the rash on his legs has returned a few days ago and he was quite concerned. His cough has improved. He denies any cough mixed with blood. Denies any hemoptysis. Denies any shortness of breath. Able to go to work. Denies any history of painful genital or oral ulcers Initial history: This is a 22-year-old male who presents for evaluation of vasculitis. Back in February patient started having dry nonproductive cough with no fevers. Two months later he started having rashes both feet and his legs up to just below his knees. This was associated with some ankle pain and swelling as well as bilateral calf aches. He denies any fevers or chills, no weight loss. 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 He had some dark urine. He was prescribed steroid for 4 days with improvement of his rash. In May he was evaluated by supervisor tank house Dr. Arrieta and had blood work done. He did not go back for follow-up. A CT chest was also ordered which showed multiple ground-glass opacities, but patient had just cleared a COVID infection. Currently patient is having the rash on both legs, not as severe as before. In addition to the dry cough. No other symptoms. No history of DVT/PE. No known family history of an autoimmune rheumatic disease. Of note patient has history of tetralogy of Fallot s/p surgery as an infant and another surgical procedure 5 years ago. 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 Review of Systems Const Reports weight gain Resp Reports cough and Denies hemoptysis Skin/Breast Details: Acne Reports rash Physical Exam Vital Signs: Last Vital Signs Pulse 96 10/24/23 14:18 BP 136/68 10/24/23 14:18 Pulse Ox 98 10/24/23 14:18 Oxygen Delivery Method Room Air 10/24/23 14:18 BMI result Body Mass Index 28.2 Const Other: Cushingoid appearance with rose facies General: cooperative, healthy appearing and comfortable Nutritional Appearance: overweight Orientation/consciousness: patient oriented x3 Limitations: no limitations HEENT Head: Yes normocephalic and Yes atraumatic Resp Other: Intermittent dry cough, much less frequent than last visit Effort & Inspection: normal respiratory effort and able to speak in complete sentences Auscultation: diminished lung sounds bilateral in the lower lung hou Cardio Rate: regular rate Heart sounds: Murmur heart sound present systolic GI Inspection: No distended Palpation (GI): Soft to palpation and nontender Skin Other: Acne on face, arms and forearms, chest, back Recurrence of HSP rash on legs Neuro General: patient oriented x3 Extrem Other: No active synovitis Results Reviewed Results Reviewed: CT/CT angio chest PE protocol IMPRESSION: Small filling defects in main and left main pulmonary arteries in the setting of pulmonary valve replacement. Multiple cavitary and noncavitary fairly peripherally distributed pulmonary opacities. Constellation of findings suggest possible prosthetic seeding with bland central pulmonary emboli and septic emboli. Pulmonary thromboembolism not excluded. Laith's granulomatosis, other collagen vascular disease or vasculitides day produce similar pulmonary findings. Review of previous CT biopsy of the right kidney was performed due to concern for vasculitis or lupus nephritis, pathology results have not been provided. Interval development of right lower lobe pulmonary arterial aneurysms which can be associated with pulmonary hypertension, congenital heart disease and vasculitides. Mycotic aneurysms also not excluded. 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 Patient received pulse dose steroids followed by 60 mg of prednisone daily. He completed 3 of 4 scheduled rituximab doses. Rituximab was well-tolerated. His cough has improved. Denied any hemoptysis. He has some recurrence of the rashes on his legs. Recent labs show persistently elevated inflammatory markers, continues to have hematuria but proteinuria improved. Patient has 1 more rituximab infusion to complete the course next week. We will have to evaluate his response to rituximab about a month or so after completion of rituximab course Reduce prednisone to 50 mg daily for 2 weeks, then 45 mg daily for 2 weeks then remain on 40 mg daily Add double-strength Bactrim 3 times a week for PCP prophylaxis Continue with famotidine 40 mg daily Given possible pulmonary arthritis I checked HLA B 51 to evaluate for Behcet's. 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 Panel 5 Weeks I77.6 - Arteritis, unspecified Complement C3 5 Weeks I77.6 - Arteritis, unspecified Erythrocyte Sedimentation Rate 5 Weeks I77.6 - Arteritis, unspecified Protein Creatinine Ratio, Ur 5 Weeks I77.6 - Arteritis, unspecified Complete Blood Count Auto Diff 5 Weeks I77.6 - Arteritis, unspecified C Reactive Protein 5 Weeks I77.6 - Arteritis, unspecified Complement C4 5 Weeks I77.6 - Arteritis, unspecified UA w Microscopic 5 Weeks I77.6 - Arteritis, unspecified Medications: New prednisone 10 mg PO DAILY 90 tabs 0RF sulfamethoxazole-trimethoprim 800-160 mg (Bactrim DS) 1 tab PO 3XW 12 tabs 1RF cholecalciferol (vitamin D3) 10 mcg PO DAILY 30 tabs 1RF Coding Level of Care Code Est Pt Level 4 (31016) Diagnoses Vasculitis I77.6 terminal superintendent systemic steroid user Z79.52
[2023-10-24 14:18] VITALS: BP 136/68; PULSE 96; O2SAT 98; BMI 28.2
== END 2023-10-24 14:46 | disposition home or self-care (01) ==
PROVIDERS: PCP Pediatrics Adolescent Medicine; Visit Provider Student in an Organized Health Care Education/Training Program
DX: I77.6 Arteritis, unspecified (principal); Z79.52 Long term (current) use of systemic steroids
CPT/HCPCS: 99214

== ENCOUNTER → 2023-10-24 14:11 | Outpatient (BNVA) | payer BC, OTHER, SELFPAY | PROVIDERS: PCP Pediatrics Adolescent Medicine; Visit Provider Student in an Organized Health Care Education/Training Program | DX: I77.6 Arteritis, unspecified (principal); Z79.52 Long term (current) use of systemic steroids | CPT/HCPCS: 99212 ==

== ENCOUNTER 2023-12-04 16:04 | Outpatient (REF) | payer OTHER, SELFPAY ==
[2023-12-04 17:19] LABS: Basophils Percent Auto 0.2 % (0-2); Hematocrit 28.6 % (42.0-52.0); Hemoglobin 9.2 g/dl (14.0-18.0); Imm Gran Abs Auto 0.26 X10*3/uL (0.00-0.03); Imm Gran Pct Auto 1.5 % (0.0-0.4); Lymphocytes Absolute Auto 0.6 X10*3/uL (1.2-4.9); Lymphocytes Percent Auto 3.4 % (20-40); MANUAL DIFF FLAG SCAN; Mean Corpuscular HGB Conc 32.2 g/dl (31.0-36.0); Mean Corpuscular Volume 87.2 fL (80.0-98.0); Mean Platelet Volume 8.8 fL (9.4-12.4); Monocytes Absolute Auto 0.6 X10*3/uL (0.1-1.2); Monocytes Percent Auto 3.3 % (2-11); Neutrophils Absolute Auto 15.8 x10*3/uL (2.0-8.3); Neutrophils Percent Auto 91.6 % (45-73); Platelet Count 452 X10*3/uL (160-400); Red Blood Count 3.28 X10*6/uL (4.60-5.80); Red Cell Distribution Width 14.3 % (11.0-16.0); SCAN SMEAR FLAG 1; White Blood Count 17.2 X10*3/uL (4.8-10.8)
[2023-12-04 17:35] LABS: Alanine Aminotransferase 18 U/L (0-40); Albumin Level 3.8 g/dL (3.5-5.0); Alkaline Phosphatase 91 U/L (39-117); Anion Gap 15 (12-20); Aspartate Amino Transferase 21 U/L (5-37); Bilirubin Total 0.2 mg/dL (0.0-1.0); Blood Urea Nitrogen 15 mg/dL (9-16); C Reactive Protein 8.06 mg/dL (< or = 0.50); Calcium 9.3 mg/dL (8.4-10.2); Carbon Dioxide 24 mmol/L (22-29); Chloride 107 mmol/L (96-108); Estimated Glomerular Filt Rate > 60; Glucose Random 110 mg/dL (60-115); Sodium 141 mmol/L (135-145); Total Protein 7.3 g/dL (6.5-8.0)
[2023-12-04 17:37] LABS: Appearance Urine Cloudy; Color Urine Dark Yellow; Glucose Urine UA Negative (Negative); Leukocyte Esterase Urine Negative (Negative); Nitrite Urine Negative (Negative); PH 5.5 (5.0-9.0); Specific Gravity - Urine 1.025 (1.005-1.025); UMIC TRIGGER UA YES; Urine Blood Large (3+) (Negative); Urine Ketones Trace mg/dL (Negative); Urine Protein 30 (1+) mg/dL (Neg-Trace)
[2023-12-04 17:40] LABS: Bacteria Urine None Seen (None Seen); WBC Urine 0-5 /HPF (0-5)
[2023-12-04 17:54] LABS: SLIDE REVIEW VERIFIED
[2023-12-04 17:56] LABS: Creatinine Urine 310.84 mg/dL; Protein/Creatinine Ratio, Ur 0.12 (<0.2); Total Protein Urine Random 37 mg/dL (<12)
[2023-12-04 18:21] LABS: Erythrocyte Sedimentation Rate 75 MM/HR (0-15)
[2023-12-06 10:08] LABS: Complement C3 209 mg/dL (82-185)
[2023-12-06 20:19] LABS: Anti Glomerular Basement Memb <1.0 AI
== END 2023-12-04 16:05 | disposition home or self-care (01) ==
LOC: HO.LAB 16:04
PROVIDERS: Internal Medicine Nephrology; PCP Pediatrics Adolescent Medicine; Visit Provider Student in an Organized Health Care Education/Training Program
DX: I77.6 Arteritis, unspecified (principal)
CPT/HCPCS: 36415; 80053; 81001; 82570; 83520; 84156; 85025; 85652; 86140; 86160

== ENCOUNTER 2023-12-06 11:17 | Outpatient (REF) | payer OTHER, SELFPAY ==
[2023-12-06 12:47] LABS: Basophils Absolute Auto 0.1 X10*3/uL (0.0-0.2); Basophils Percent Auto 0.3 % (0-2); Hematocrit 29.4 % (42.0-52.0); Hemoglobin 9.4 g/dl (14.0-18.0); Imm Gran Pct Auto 1.1 % (0.0-0.4); Lymphocytes Absolute Auto 0.4 X10*3/uL (1.2-4.9); MANUAL DIFF FLAG SCAN; Mean Corpuscular Hemoglobin 27.7 pg (27.0-33.0); Mean Corpuscular Volume 86.7 fL (80.0-98.0); Mean Platelet Volume 9.2 fL (9.4-12.4); Monocytes Absolute Auto 0.2 X10*3/uL (0.1-1.2); Monocytes Percent Auto 1.3 % (2-11); Neutrophils Absolute Auto 16.9 x10*3/uL (2.0-8.3); Neutrophils Percent Auto 95.3 % (45-73); Platelet Count 400 X10*3/uL (160-400); Red Blood Count 3.39 X10*6/uL (4.60-5.80); Red Cell Distribution Width 14.4 % (11.0-16.0); SCAN SMEAR FLAG 1; White Blood Count 17.7 X10*3/uL (4.8-10.8)
[2023-12-06 12:48] LABS: Appearance Urine Clear; Color Urine Yellow; Glucose Urine UA Negative (Negative); Leukocyte Esterase Urine Negative (Negative); Nitrite Urine Negative (Negative); Specific Gravity - Urine 1.015 (1.005-1.025); UMIC TRIGGER UA YES; Urine Blood Moderate (2+) (Negative); Urine Ketones Negative (Negative); Urine Protein Trace mg/dL (Neg-Trace)
[2023-12-06 12:53] LABS: Bacteria Urine None Seen (None Seen); Hyaline Casts Urine 0-2 /LPF (0-2); RBC Urine >20 /HPF (0-2); Squamous Epithelial Cell Urine 0-2 /HPF (0-2); WBC Urine 0-5 /HPF (0-5)
[2023-12-06 13:17] LABS: SLIDE REVIEW VERIFIED
[2023-12-06 13:26] LABS: Anion Gap 15 (12-20); Blood Urea Nitrogen 12 mg/dL (9-16); Carbon Dioxide 23 mmol/L (22-29); Chloride 105 mmol/L (96-108); Estimated Glomerular Filt Rate > 60; Potassium 5.1 mmol/L (3.3-5.1); Sodium 138 mmol/L (135-145)
[2023-12-06 13:30] LABS: Creatinine Urine 159.03 mg/dL; Protein/Creatinine Ratio, Ur 0.11 (<0.2); Total Protein Urine Random 18 mg/dL (<12)
== END 2023-12-06 11:18 | disposition home or self-care (01) ==
LOC: HO.LAB 11:17
PROVIDERS: Internal Medicine Nephrology; PCP Pediatrics Adolescent Medicine; Visit Provider Student in an Organized Health Care Education/Training Program
DX: I77.6 Arteritis, unspecified (principal); I33.0 Acute and subacute infective endocarditis
CPT/HCPCS: 36415; 80051; 81001; 82565; 82570; 84156; 84520; 85025; 87040; 87077; 87186; 87205; 99212

== ENCOUNTER 2023-12-06 11:17 | Outpatient (AMB) | payer OTHER, SELFPAY ==
--- NOTE | 2023-12-06 11:27 | A.OFFVIS_ITS ---
Vital Signs 12/06/23 11:29 Height 5 ft 11 in Weight 197 lb 12.074 oz BMI 27.6 BP 130/62 Blood Pressure Location Rt brachial Position Sitting Respiration 18 Pulse 90 Pulse Source Pulse Oximeter Pulse Oximetry (%) 98 Oxygen Delivery Method Room Air Intake Visit Reasons: Vasculitis/CM Intake Note: Patient presents for Vasculitis. Allergies No Known Allergies Allergy (Verified 12/06/23 12:58) Medication List - Last Reconciled 12/06/23 by Linda Garcia MD albuterol sulfate 90 mcg/actuation 2 puffs inhalation Q4-6H PRN aspirin 81 mg PO DAILY cholecalciferol (vitamin D3) 10 mcg PO DAILY famotidine 40 mg PO DAILY multivitamin (Daily Multi-Vitamin tablet) 1 tab PO DAILY prednisone 10 mg PO DAILY prednisone 40 mg (2 x 20 mg) PO DAILY sulfamethoxazole-trimethoprim 800-160 mg (Bactrim DS) 1 tab PO 3XW HPI Comments Details: 23-year-old male with vasculitis returns for follow-up. He is currently on prednisone 40 mg daily. He completed rituximab course 5-6 weeks ago. He states that he feels about the same overall. He continues to have mild intermittent dry cough, cough is sometimes productive of clear sputum, sometimes green sputum mixed with specks of blood. Denies any shortness of breath. 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 Continues to have acne all over. 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 Denies any joint pain or swelling. His appointment with his professor of industrial technology is not until March Initial history: This is a 22-year-old male who presents for evaluation of vasculitis. Back in February patient started having dry nonproductive cough with no fevers. Two months later he started having rashes both feet and his legs up to just below his knees. This was associated with some ankle pain and swelling as well as bilateral calf aches. He denies any fevers or chills, no weight loss. 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 He had some dark urine. He was prescribed steroid for 4 days with improvement of his rash. In May he was evaluated by gas blender Dr. Arrieta and had blood work done. He did not go back for follow-up. A CT chest was also ordered which showed multiple ground-glass opacities, but patient had just cleared a COVID infection. Currently patient is having the rash on both legs, not as severe as before. In addition to the dry cough. No other symptoms. No history of DVT/PE. No known family history of an autoimmune rheumatic disease. Of note patient has history of tetralogy of Fallot s/p surgery as an and another surgical procedure 5 years ago. He is on aspirin lifelong [facility] Medical History Tetralogy of Fallot Proteinuria Vasculitis Surgical History History of open heart surgery Family History Maternal Grandmother Diabetes Paternal Grandfather Diabetes Social History Alcohol intake: never Patient Tobacco Use Status: Never used Tobacco Advance Directives: No Advance Directives Information Provided: Yes Current occupational status: employed Current occupation: [employer] Const Reports weight gain Resp Reports cough and Denies hemoptysis Skin/Breast Details: Acne Reports rash Physical Exam Vital Signs: Last Vital Signs Pulse 90 12/06/23 11:29 Resp 18 12/06/23 11:29 BP 130/62 12/06/23 11:29 Pulse Ox 98 12/06/23 11:29 Oxygen Delivery Method Room Air 12/06/23 11:29 BMI result Body Mass Index 27.6 Const Other: Cushingoid appearance with rose facies General: cooperative, healthy appearing and comfortable Nutritional Appearance: overweight Orientation/consciousness: patient oriented x3 Limitations: no limitations HEENT Head: Yes normocephalic and Yes atraumatic Mouth: moist mucous membranes Resp Other: Intermittent dry cough Effort & Inspection: normal respiratory effort and able to speak in complete sentences Cardio Rate: regular rate and tachycardic Heart sounds: Murmur heart sound present systolic (At the left 2nd intercostal space) GI Inspection: No distended Palpation (GI): Soft to palpation and nontender Skin Other: Acne on face, arms and forearms, chest, back, behind his knees, no HSP rashes Neuro General: patient oriented x3 Extrem Other: No active synovitis No splinter hemorrhages, no ulcers nodes or Janeway lesions Normal nailfold capillaroscopy Results Reviewed Results Reviewed: CT/CT angio chest PE protocol IMPRESSION: Small filling defects in main and left main pulmonary arteries in the setting of pulmonary valve replacement. Multiple cavitary and noncavitary fairly peripherally distributed pulmonary opacities. Constellation of findings suggest possible prosthetic seeding with bland central pulmonary emboli and septic emboli. Pulmonary thromboembolism not excluded. Laith's granulomatosis, other collagen vascular disease or vasculitides day produce similar pulmonary findings. Review of previous CT biopsy of the right kidney was performed due to concern for vasculitis or lupus nephritis, pathology results have not been provided. Interval development of right lower lobe pulmonary arterial aneurysms which can be associated with pulmonary hypertension, congenital heart disease and vasculitides. Mycotic aneurysms also not excluded. 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 Patient completed rituximab course 5-6 weeks ago. He remains on prednisone 40 mg daily. Symptomatically patient is about the same. Continues to have intermittent cough sometimes mixed with sputum and specks of blood. No shortness of breath. There has not been any recurrence of his HSP like rashes. Labs show anemia, significantly elevated inflammatory markers, proteinuria resolved, complements normalized. He continues to have hematuria but he has thin basement membrane disease. Given that patient did not really improve with rituximab and prednisone, he might have an underlying infection going on, patient did have a couple of pulmonary valve replacements for his lifetime, most recent was in 2019. The possibility of infective endocarditis remains. Infective endocarditis can be associated with immunologic phenomenon such as glomerulonephritis, which could explain his hematuria and proteinuria, his HSP like rashes. Some of the immunologic manifestations such as his HSP rashes, glomerulonephritis, low C3 and C4 might have improved with rituximab however there might be an underlying infection going on. Reviewing his CTA of the chest there is a possibility of pulmonary valve malfunction and/or endocarditis. Perhaps classic constitutional symptoms of infective endocarditis such as high fevers were masked by the prednisone. I tried to contact patient's professor of industrial technology [place] [facility] [place]. Reuben Hall. I was not able to speak to anyone. I left my cell number Given the patient for infective endocarditis I think patient should be admitted for evaluation. Blood cultures, and consider a PAU. I asked patient to go to the emergency room today. I will also discuss with pulmonology, further respiratory infection workup (bronchoscopy) might be appropriate. His prednisone should be tapered. Reduce prednisone to 30 mg daily for 2 weeks, then 20 mg daily for 2 weeks, 15 mg daily for 2 weeks then remain on 10 mg daily for now. Bactrim, famotidine and vitamin-D is to be discontinued once prednisone is less than 20 mg daily Follow-up in about 6 weeks Plan I spent 65 minutes reviewing patient's chart, evaluating patient, ordering diagnostic workup, coordinating care, counseling patient and documenting in the chart Orders: Orders CA echo transthoracic complete Today I33.0 - Acute and subacute infective endocarditis Blood Culture X2 Today I33.0 - Acute and subacute infective endocarditis Coding Level of Care Code Est Pt Level 5 (02637) Diagnoses Vasculitis I77.6
[2023-12-06 11:29] VITALS: BP 130/62; PULSE 90; RESP 18; O2SAT 98; BMI 27.6
== END 2023-12-06 12:02 | disposition home or self-care (01) ==
PROVIDERS: PCP Pediatrics Adolescent Medicine; Visit Provider Student in an Organized Health Care Education/Training Program
DX: I77.6 Arteritis, unspecified (principal)
CPT/HCPCS: 99215

== ENCOUNTER 2023-12-06 12:53 | Inpatient (IN) | payer OTHER, SELFPAY ==
--- NOTE | ~2023-12-06 | CT_ITS ---
EXAMINATION: CT ANGIOGRAM OF THE CHEST WITH CONTRAST (CT PULMONARY ANGIOGRAM FOR PE) CLINICAL INFORMATION: Septic emboli. Cough and fatigue. COMPARISON: Chest CT from 09/28/2023. CXR from 12/06/2023. TECHNIQUE: Prior to contrast administration, noncontrast localization images were obtained. Subsequently, multidetector volumetric imaging was performed from the thoracic inlet to below the diaphragms following the administration of 65 mL Omnipaque 350 intravenous contrast. No contrast reaction reported. Sagittal, coronal, and MIP oblique sagittal reformatted images were obtained on the CT workstation, uploaded to PACS, and reviewed. This CT examination was performed using dose optimization techniques as appropriate, variously including the following: *Automated exposure control *Adjustment of mA and/or kV according to patient size (this includes techniques or standardized protocols for targeted exams where dose is matched to indication/reason for exam; i.e. extremities or head) *Use of iterative reconstruction technique DLP: Total exam dose-length product 305 mGy-cm FINDINGS: LUNGS AND PLEURA: Trachea and central airways are widely patent and normal in caliber. In this patient with history of septic emboli, the imaging findings suggest active disease. Compared to 09/28/2023, there are some new bilateral cavitary foci that could represent subacute septic emboli as well as new scattered nodular opacities. Findings include a new 1.3 cm nodular opacity with surrounding groundglass attenuation in the posteromedial right lower lobe peripheral to a lower lobe embolism (image 394, series 6). No pleural effusion or pneumothorax.. QUALITY OF STUDY/CONTRAST BOLUS: Satisfactory. PULMONARY ARTERIES: Patient is status post pulmonary valve replacement. A small filling defect is present along the posterior wall of the left main pulmonary artery. The evaluation of peripheral vessels in the left lower lobe is partially limited by blurring artifact from respiratory or cardiac motion. There appears to be mild thickening along some of the silva of left lower lobe arteries and this could represent recanalization of prior embolism. Interval development of a thick-walled cavitary change in posterior left lower lobe in region of previously identified disease (images [id number], series 6). Compared to 09/28/2023, there is either new thrombus or nonocclusive embolus involving a right lower lobe branch headed to the posterior and medial basal segments, and there is focal dilatation of this vessel consistent with aneurysmal change from infection. Findings include interval worsening thrombosis or embolic disease involving of a peripheral branch in the posteromedial right lower lobe (image 396, series 6), and there is increased thrombosis or embolism involving a dilated branch to the lateral segment of the right lower lobe (image 374, series 6). [MACRA quality measure: Most proximal level of pulmonary embolism or thrombus seen: main pulmonary artery] OTHER CARDIOVASCULAR: The cardiac chambers are normal in size. No pericardial effusion. Thoracic aorta is unremarkable. MEDIASTINUM/LOWER NECK: No mediastinal mass. The esophagus has normal wall thickness. Thyroid gland is normal. LYMPHATICS: No axillary lymphadenopathy. There are chronically mildly enlarged subcarinal, perihilar and peribronchial lymph nodes. UPPER ABDOMEN: Splenomegaly. The spleen is 14.6 cm AP dimension (15 cm on 09/28/2023). OSSEOUS STRUCTURES: No acute or suspicious osseous abnormality. There is chronic mild anterior wedging of the T11 vertebral body and Schmorl's node of its superior endplate. Also, chronic mild anterior wedging of T12 vertebral body. There are chronic multilevel vertebral endplate irregularities of the thoracic spine. No findings to suggest infectious spondylodiscitis. Sternotomy wires are intact. There is a symmetric appearance of bilateral gynecomastia. CT/CT angio chest PE protocol IMPRESSION: * Bilateral lucent, cavitary lesions and nodular foci are present in both lungs in this patient with history of septic emboli. * There are some new or worsening thrombotic or embolic changes in pulmonary arteries. 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 * Persistent splenomegaly. The critical test result was discussed with Dr. Ruth at 7:35 PM on 12/06/2023 and it was ascertained that the content and the importance of the findings was understood at the time of the direct communication.
--- NOTE | ~2023-12-06 | XR_ITS ---
EXAMINATION: XR CHEST 2 VIEW CLINICAL INFORMATION: Fatigue and cough COMPARISON: 09/28/2023 TECHNIQUE: PA and lateral views of the chest obtained. FINDINGS: The lungs are clear. There are no pleural effusions. The cardiomediastinal silhouette is stable, again noting prosthetic pulmonary valve and poststernotomy changes.. XR/XR chest 2V IMPRESSION: No acute disease or significant interval change.
[2023-12-06 12:57] VITALS: BP 133/77; PULSE 99; RESP 19; TEMP 36.6; O2SAT 99; BMI 26.5
--- NOTE | 2023-12-06 12:57 | ED.GENADULT ---
HPI - General Adult General Chief complaint: General Medical Stated complaint: sent in by pcp chest infection Time Seen by Provider: 12/06/23 13:54 Source: patient Mode of arrival: ambulatory Limitations: no limitations History of Present Illness ED Provider: Parvin Ross PA-C HPI narrative: Patient is a 23 year old assigned male at with a history of tetralogy of fallot, pulmonary valve replacement in 2019, and vasculitis presenting to the emergency department today with possible endocarditis. Patient states that he is feeling generally unwell with weakness despite being on steroids for his vasculitis. Patient states that he was seen by the second chef who recommended he come to the ER for hospital admission to have endocarditis ruled out. Patient states that this started shortly after he had a dental appointment. Patient states that he pre-treated before the dental appointment as directed. Patient denies any dizziness, lightheadedness, abdominal pain, nausea, vomiting, fever, chills, blurry vision, double vision, loss of vision, chest pain, difficulty breathing, shortness of breath, back pain, night sweats, pain with urination, increased urinary frequency, increased urinary urgency, blood in his urine or stool, syncope or a near syncopal episode, recent trauma or falls, bowel incontinence, bladder incontinence, or any other complaints at this time. Relieving factors: none Exacerbating factors: none Associated symptoms: weakness Treatments prior to arrival: other (prednisone) Related Data Home Medications ?Medication ?Instructions ?Recorded ?Confirmed aspirin 81 mg chewable tablet 81 mg PO BEDTIME 07/31/23 12/06/23 multivitamin (Daily Multi-Vitamin 2 tab PO DAILY 10/12/23 12/06/23 tablet) prednisone 20 mg tablet See Taper PO DAILY 12/06/23 12/06/23 sulfamethoxazole 800 1 tab PO MOWEFR 12/06/23 12/06/23 mg-trimethoprim 160 mg tablet (Bactrim DS) Previous Rx's ?Medication ?Instructions ?Recorded cholecalciferol (vitamin D3) 10 10 mcg PO DAILY #30 tabs 10/24/23 mcg (400 unit) tablet Allergies Allergy/AdvReac Type Severity Reaction Status Date / Time No Known Allergies Allergy Verified 12/06/23 12:58 Review of Systems Constitutional: Constitutional: Reports no additional constitutional complaints, Denies chills, Denies fever(s), Denies night sweats and Reports weakness Eyes: Eyes: Reports no additional eye complaints, Denies blurry vision, Denies change in vision, Denies diplopia, Denies eye discharge, Denies loss of vision and Denies eye pain ENT: Denies dizziness Cardiovascular: Cardiovascular: Reports no additional cardiovascular complaints, Denies chest pain, Denies lightheadedness, Denies Loss of Consciousness and Denies dyspnea Respiratory: Respiratory: Reports no additional respiratory complaints and Denies dyspnea Gastrointestinal: Gastrointestinal: Reports no additional gastrointestinal complaints, Denies abdominal pain, Denies melena, Denies hematochezia, Denies change in bowel habits and Denies change in stool character Genitourinary: Genitourinary: Reports no additional male genitourinary complaints, Denies hematuria, Denies oliguria, Denies difficulty urinating, Denies dysuria, Denies urinary frequency, Denies urinary hesitancy, Denies urinary incontinence and Denies urinary urgency Musculoskeletal: Musculoskeletal: Reports no additional musculoskeletal complaints, Denies numbness and Denies tingling Neurologic: Denies dizziness, Denies loss of vision, Denies numbness, Denies tingling and Reports weakness Psychiatric: Psychiatric: Reports no additional psychiatric complaints Endocrine: Endocrine: Reports no additional endocrine complaints Hematologic/Lymphatic: Hematologic/Lymphatic: Reports no additional hematologic/lymphatic complaints Allergic/Immunologic: Allergic/Immunologic: Reports no additional allergic/immunologic complaints [facility] Past Medical History Attestation statement: The following information was validated with the patient. Source: old records reviewed and nursing notes reviewed Medical History Cavitary lesion of lung Septic pulmonary embolism Tetralogy of Fallot Proteinuria Vasculitis Surgical History History of open heart surgery Family History Family History Maternal Grandmother Diabetes Paternal Grandfather Diabetes Social History Social History Household Members: Family Housing: House Do you presently have visiting nurse or other home services: No Alcohol intake: never Patient Tobacco Use Status: Never used Tobacco Smoked in Last 30 Days: No Use of substances other than those prescribed or required for medical reasons: No Currently Displaying Signs/Symptoms of Drug Intoxication Withdrawal: No Have you been hit, kicked, punched, or otherwise hurt by someone within the past year? 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 Physical Exam ED Vital Signs: Vital Signs - 24 hr 12/06/23 12:57 12/06/23 14:00 Temperature 98 F 98.3 F Pulse Rate 99 91 Respiratory Rate 19 15 Blood Pressure 133/77 109/58 L Pulse Oximetry 99 99 Oxygen Delivery Method Room Air Room Air BMI result Body Mass Index 26.5 Const General: cooperative, no acute distress, alert and awake Nutritional Appearance: well nourished Orientation/consciousness: patient oriented x3 Limitations: no limitations HENVA Head: Yes normal to inspection and Yes atraumatic Ears: hearing grossly normal bilaterally and external ears normal General nose exam: Normal external nose present, no nasal discharge noted and no epistaxis Face and sinus: Yes normal facial exam, No abrasion and No laceration Mouth: Normal oral and palatal mucosa present, no drooling and no muffled voice Eyes General: appearance normal, both eyes and all related structures Periorbital: periorbital findings normal Eyelids: Yes eyelids normal Conjunctivae: conjunctivae normal Pupils: Equal, round and reactive pupils present EOM: EOMs intact bilaterally Neck Neck: Yes normal visual inspection, Yes full ROM and Yes no lymphadenopathy Chest Chest palpation & inspection: normal inspection of the chest Resp Effort & Inspection: normal respiratory effort and able to speak in complete sentences GI Inspection: Yes normal to inspection Neuro General: patient oriented x3 and moves all extremities Cranial nerves: Yes Equal, round and reactive pupils present Cognition (Neuro): normal cognition Motor exam (neuro): 5/5 motor strength present throughout Sensory Exam: Normal double simultaneous stimulation for sensation Coordination: [id number] test normal Extrem General: Yes normal to inspection, Yes full ROM and Yes capillary refill normal Psych Appearance: grossly normal Mental Status: mental status grossly normal Affect: normal affect Attitude: cooperative Thought process: Normal thought process present Thought content: Normal thought content present Insight: Good insight present (Psych) Course Course Course Narrative: This is an RME: Additional HPI, ROS, PE not included below will be deferred to primary provider. RME assessment and note performed by: Francheska Singh PA-C This is a 23 year old male, with a history of tetralogy of fallot, pulmonary valve replacement 2018, and vasculitis, who presents emergency department from rheumatology office after possible concerns for endocarditis. Patient has been on prednisone for several weeks however states that over the last 6 months he has had general weakness. Expect was called in from Dr. Garcia and Dr. Henning spoke to him, recommended endocarditis workup +/- admission. Advised charge nurse to bring pt back shannon Plan: Labs, EKG, CXR, lactic, blood cult, CXR Medications Administered Generic Name Dose Route Start Last Admin Trade Name Freq PRN Reason Stop Dose Admin Aspirin 81 mg 12/06/23 21:00 12/07/23 21:50 Aspirin 81 Mg Tab.Chew PO 81 mg BEDTIME WU Administration Enoxaparin Sodium 40 mg 12/06/23 17:00 12/07/23 16:41 Enoxaparin Sodium 40 Mg/0.4 Ml Syringe SUBCUT 40 mg Q24H WU Administration Cefazolin Sodium/Dextrose 2 gm in 50 mls @ 100 mls/hr 12/07/23 17:00 12/08/23 01:50 Ancef IV Infused Q8H WU Infusion Vancomycin HCl 1,000 mg/ 270 mls @ 270 mls/hr 12/07/23 18:00 12/08/23 02:54 Sodium Chloride IV Infused Q8H WU Infusion Omeprazole 20 mg 12/07/23 06:30 12/08/23 05:46 Omeprazole 20 Mg Capsule. PO 20 mg DAILY@0630 WU Administration Prednisone 30 mg 12/07/23 09:00 12/07/23 07:57 Prednisone 10 Mg Tablet PO 12/20/23 09:01 30 mg DAILY WU Administration Sodium Chloride 3 ml 12/07/23 00:00 12/07/23 19:50 0.9 % Sodium Chloride Flush 3 Ml Syringe IVFLUSH 3 ml QSHIFT WU Administration Vitamin D 10 mcg 12/07/23 09:00 12/07/23 07:58 Cholecalciferol (Vitamin D3) 10 Mcg Tablet PO 10 mcg DAILY WU Administration Discontinued Medications Generic Name Dose Route Start Last Admin Trade Name Igor PRN Reason Stop Dose Admin Piperacillin Sod/Tazobactam 50 mls @ 100 mls/hr 12/06/23 17:00 12/07/23 12:20 Sod 3.375 gm/ Sodium Chloride IV Infused Q6H WU Infusion Vancomycin HCl 2,000 mg in 500 mls @ 250 mls/hr 12/06/23 17:04 12/06/23 19:41 Vancomycin/Ns IV 12/06/23 19:03 Infused ONCE STA Infusion Vancomycin HCl 1,500 mg/ 500 mls @ 333.333 mls/hr 12/07/23 06:00 12/07/23 07:56 Sodium Chloride IV Infused Q12H WU Infusion Iohexol 100 ml 12/06/23 17:20 12/06/23 17:20 Iohexol 350 Mg/Ml 100 Ml Infus..Btl IV 12/06/23 17:21 65 ml ONCE ONE Administration Medical Decision Making Medical Decision Making [facility] Narrative: Patient is a 23 year old assigned male at with a history of tetralogy of fallot, pulmonary valve replacement in 2019, and vasculitis presenting to the emergency department today with weakness and concern for endocarditis. Patient's physical exam was unremarkable. Patient's blood work showed a chronically elevated WBC count, ESR, and CRP. Unfortunately, these chronic elevations make it more challenging to evaluate for an acute infection. Patient's EKG was unremarkable. Patient's chest x-ray showed no acute process. I reviewed the patient's CTA from 09/28/2023 that showed evidence of possible septic emboli. Patient was seen by the adult basic education instructor on 10/12/2023 for this finding. They stated he needed to be seen by a operator bearer systems and was referred to [facility] for this however, the patient was unable to be scheduled sooner than March. The adult basic education instructor group wrote that they would attempt to get him in somewhere, sooner and would repeat imaging. I spoke to the hospitalist who agreed with admission to further rule out a cardiac process with a PAU. I explained my physical exam findings as well as all test results to the patient and the patient's mother. I answered all questions asked by the patient and the patient's mother. Patient and the patient's mother verbalized agreement and understanding with this treatment plan and admission. Differential Diagnosis Differential Diagnoses: The differential diagnosis associated with the presentation includes Endocarditis Weakness Heart failure Admission/Observation Consideration of admission/observation: Escalation of care including admission/observation considered Patient admitted. Consult Healthcare Provider Management of the patient was discussed with: Hospitalist (agreed to admission as noted in the MDM Rationale portion of this note.) Lab Data [facility] Lab Attestation statement: I reviewed the patient's lab results. My interpretation of these results are in the MDM Rationale portion of this note. 12/08/23 07:48 12/08/23 07:48 Labs: Lab Results 12/06/23 12/06/23 12/06/23 Range/Units 13:30 13:31 15:16 WBC 17.3 H (4.8-10.8) X10*3/uL RBC 3.25 L (4.60-5.80) X10*6/uL Hgb 9.0 L (14.0-18.0) g/dl Hct 28.5 L (42.0-52.0) % MCV 87.7 (80.0-98.0) fL MCH 27.7 (27.0-33.0) pg MCHC 31.6 (31.0-36.0) g/dl RDW 14.4 (11.0-16.0) % Plt Count 387 (160-400) X10*3/uL MPV 8.1 L (9.4-12.4) fL Immature Gran % (Auto) 1.4 H (0.0-0.4) % Neut % (Auto) 93.1 H (45-73) % Lymph % (Auto) 3.2 L (20-40) % [place] % (Auto) 2.1 (2-11) % Eos % (Auto) 0.0 (0-4) % Baso % (Auto) 0.2 (0-2) % Lymph # (Auto) 0.6 L (1.2-4.9) X10*3/uL [place]rick # (Auto) 0.4 (0.1-1.2) X10*3/uL Eos # (Auto) 0.0 (0.0-0.4) X10*3/uL Baso # (Auto) 0.0 (0.0-0.2) X10*3/uL Abs Immat Gran (auto) 0.25 H (0.00-0.03) X10*3/uL Absolute Neuts (auto) 16.1 H (2.0-8.3) x10*3/uL Absolute Nucleated RBC 0.000 (0.0-0.012) X10*3/uL Nucleated RBC % (auto) 0.0 (0.0-0.2) /100WBC ESR 73 H (0-15) MM/HR Hold Purple Top SEE NOTE PT 15.0 H (11.1-13.3) SEC INR 1.2 H (0.9-1.1) Sodium 138 (135-145) mmol/L Potassium 5.2 H (3.3-5.1) mmol/L Chloride 104 (96-108) mmol/L Carbon Dioxide 25 (22-29) mmol/L Anion Gap 14 (12-20) BUN 12 (9-16) mg/dL Creatinine 0.88 (0.5-1.4) mg/dL Estim Creat Clear Calc 141.4 Estimated GFR > 60 Random Glucose 115 (60-115) mg/dL Lactic Acid 0.8 (0.5-2.0) mmol/L Calcium 9.4 (8.4-10.2) mg/dL Magnesium 1.8 (1.6-2.6) mg/dL Total Bilirubin 0.3 (0.0-1.0) mg/dL Direct Bilirubin 0.1 (0.0-0.5) mg/dL AST 22 (5-37) U/L ALT 18 (0-40) U/L Alkaline Phosphatase 91 (39-117) U/L Troponin I High Sens 3.6 (<3.5-35.0) ng/L C-Reactive Protein 7.32 H (< or = 0.50) mg/dL B-Natriuretic Peptide Cancelled Total Protein 7.1 (6.5-8.0) g/dL Albumin 3.7 (3.5-5.0) g/dL TSH 0.49 (0.32-4.0) uIU/mL Urine Color Yellow Urine Appearance Clear Urine pH 6.5 (5.0-9.0) Ur Specific [place] 1.015 (1.005-1.025) Urine Protein Negative (Neg-Trace) mg/dL Urine Glucose (UA) Negative (Negative) mg/dL Urine Ketones Negative (Negative) mg/dL Urine Blood Moderate (2+) H (Negative) Urine Nitrite Negative (Negative) Ur Leukocyte Esterase Negative (Negative) Urine RBC >20 H (0-2) /HPF Urine WBC 0-5 (0-5) /HPF Ur Squamous Epith Cells 0-2 (0-2) /HPF Urine Bacteria None Seen (None Seen) Hyaline Casts 0-2 (0-2) /LPF COVID-19 (HESHAM) Negative (Negative) COVID-19 Clin Com See Note Monoscreen Negative (Negative) Influenza Type A (PCR) NEGATIVE (Negative) Influenza Type B (PCR) NEGATIVE (Negative) RSV RNA Qual (PCR) NEGATIVE (Negative) SARS-CoV-2 RNA (RT-PCR) NEGATIVE (Negative) Independent Interpretation I performed an independent interpretation of an: Plain X-Ray Interpretation: My interpretation is in agreement with the radiologist's impression of this imaging study. EXAMINATION: XR CHEST 2 VIEW CLINICAL INFORMATION: Fatigue and cough COMPARISON: 09/28/2023 TECHNIQUE: PA and lateral views of the chest obtained. FINDINGS: The lungs are clear. There are no pleural effusions. The cardiomediastinal silhouette is stable, again noting prosthetic pulmonary valve and poststernotomy changes.. XR/XR chest 2V IMPRESSION: No acute disease or significant interval change. Dictated By: Heriberto Noriega MD Signed By: Electronically signed by Heriberto Noriega MD 12/06/23 1430 Vent. Rate: 096 BPM Atrial Rate: 096 BPM P-R Int: 122 ms QRS Dur: 082 ms QT Int: 336 ms P-R-T Axes: 088 079 095 degrees QTc Int: 424 ms Normal sinus rhythm Consider right ventricular involvement in acute inferior infarct Abnormal ECG When compared with ECG of 16-OCT-2023 08:28, ST elevation now present in Inferior leads ST more depressed Lateral leads T wave inversion now evident in Anterior leads DD/ [id number] Radiology Impression Discussion of test interpretation with radiology: I have reviewed the radiologist's reading. Independent Historian Clinical information obtained from an independent historian. History obtained from or confirmed by: Parent (patient's mother provided additional history and confirmed the history provided by the patient) Critical Care Time Critical Care Time Critical Care Time: Yes Total Critical Care Time: 41 Attestation: I spent 41 minutes of Critical Care Time with this patient. This does not include time spent on separately reported billable procedures. Discharge Plan Discharge Clinical Impression: Tetralogy of Fallot, Vasculitis, Weakness Patient Disposition: Admitted As Inpatient Interventions: Admission Worksheet (ED) Last Done: 12/06/23 19:09 Discharge Date/Time: 12/06/23 20:14
--- NOTE | 2023-12-06 13:01 | ECG_ITS ---
Test Reason : CHEST PAIN - HX OF TETRAOLOGY FALLOT Blood Pressure : / mmHG Vent. Rate : 096 BPM Atrial Rate : 096 BPM P-R Int : 122 ms QRS Dur : 082 ms QT Int : 336 ms P-R-T Axes : 088 079 095 degrees QTc Int : 424 ms Normal sinus rhythm Nonspecific ST elevation Abnormal ECG When compared with ECG of 16-OCT-2023 08:28, Nonspecific ST elevation Inferior leads ST more depressed Lateral leads T wave inversion now evident in Anterior leads Referred By: Francheska Singh Electronically Signed By:KOTA PERKINS MD
[2023-12-06 13:41] LABS: Basophils Percent Auto 0.2 % (0-2); Hematocrit 28.5 % (42.0-52.0); Imm Gran Abs Auto 0.25 X10*3/uL (0.00-0.03); Imm Gran Pct Auto 1.4 % (0.0-0.4); Lymphocytes Absolute Auto 0.6 X10*3/uL (1.2-4.9); Lymphocytes Percent Auto 3.2 % (20-40); Mean Corpuscular HGB Conc 31.6 g/dl (31.0-36.0); Mean Corpuscular Hemoglobin 27.7 pg (27.0-33.0); Mean Corpuscular Volume 87.7 fL (80.0-98.0); Mean Platelet Volume 8.1 fL (9.4-12.4); Monocytes Absolute Auto 0.4 X10*3/uL (0.1-1.2); Monocytes Percent Auto 2.1 % (2-11); Neutrophils Absolute Auto 16.1 x10*3/uL (2.0-8.3); Neutrophils Percent Auto 93.1 % (45-73); Platelet Count 387 X10*3/uL (160-400); Red Blood Count 3.25 X10*6/uL (4.60-5.80); Red Cell Distribution Width 14.4 % (11.0-16.0); White Blood Count 17.3 X10*3/uL (4.8-10.8)
[2023-12-06 13:46] LABS: INTERNATIONAL NORM RATIO 1.2 (0.9-1.1)
[2023-12-06 13:50] LABS: Lactic Acid 0.8 mmol/L (0.5-2.0)
[2023-12-06 13:55] LABS: Alanine Aminotransferase 18 U/L (0-40); Albumin Level 3.7 g/dL (3.5-5.0); Alkaline Phosphatase 91 U/L (39-117); Anion Gap 14 (12-20); Aspartate Amino Transferase 22 U/L (5-37); Bilirubin Direct 0.1 mg/dL (0.0-0.5); Bilirubin Total 0.3 mg/dL (0.0-1.0); Blood Urea Nitrogen 12 mg/dL (9-16); C Reactive Protein 7.32 mg/dL (< or = 0.50); Calcium 9.4 mg/dL (8.4-10.2); Carbon Dioxide 25 mmol/L (22-29); Chloride 104 mmol/L (96-108); Creatinine Clr Calc Pharmacy 141.4; Estimated Glomerular Filt Rate > 60; Glucose Random 115 mg/dL (60-115); Magnesium 1.8 mg/dL (1.6-2.6); Potassium 5.2 mmol/L (3.3-5.1); Sodium 138 mmol/L (135-145); Total Protein 7.1 g/dL (6.5-8.0)
[2023-12-06 13:57] LABS: Monotest Negative (Negative)
[2023-12-06 14:00] VITALS: BP 109/58; PULSE 91; RESP 15; TEMP 36.8; O2SAT 99
[2023-12-06 14:03] LABS: Troponin-I High Sensitivity 3.6 ng/L (<3.5-35.0)
[2023-12-06 14:16] LABS: TSH reflex Free T4 0.49 uIU/mL (0.32-4.0)
[2023-12-06 14:16] LABS: COVID-19 Test Negative (Negative); IDNOW Serial# 08D9AD1C
[2023-12-06 14:20] LABS: Influenza A PCR NEGATIVE (Negative); Influenza B PCR NEGATIVE (Negative); Resp Syncy Virus RNA Qual PCR NEGATIVE (Negative); SARS COV2 PCR INHOUSE NEGATIVE (Negative)
[2023-12-06 14:23] LABS: Erythrocyte Sedimentation Rate 73 MM/HR (0-15)
[2023-12-06 15:26] LABS: Appearance Urine Clear; Color Urine Yellow; Glucose Urine UA Negative (Negative); Leukocyte Esterase Urine Negative (Negative); Nitrite Urine Negative (Negative); PH 6.5 (5.0-9.0); Specific Gravity - Urine 1.015 (1.005-1.025); UMIC TRIGGER UACC YES; Urine Blood Moderate (2+) (Negative); Urine Ketones Negative (Negative); Urine Protein Negative (Neg-Trace)
--- NOTE | 2023-12-06 15:27 | PHA.MEDREC ---
Addendum entered by Umm Dye 12/06/23 16:54: Went back and spoke to patient to confirm when he is ending his Sulfa-trimeth regimen and he stated that his doctor told him once Prednisone drops below 20mg to discontinue use of that. Original Note: Pharmacy Consult ? Medication Reconciliation Pharmacy has completed the medication reconciliation. Confirmed medications with patient and help of mom at bedside. He confirmed that he is on a prednisone taper regimen and and stated he took his last dose of 40mg this morning 11/16/23 and as of tomorrow 11/17/2023 he is going to be staring 30mg for 2 weeks, then going to 20mg for 2 weeks then 10 mg for 2 weeks and done. He is also on a Sulfamethoxazole 800mg-trimethoprim 160mg tab one 3 times a week on at bedtime and he took his last dose 12/05/2023.
[2023-12-06 15:31] LABS: Bacteria Urine None Seen (None Seen); Hyaline Casts Urine 0-2 /LPF (0-2); RBC Urine >20 /HPF (0-2); Squamous Epithelial Cell Urine 0-2 /HPF (0-2); WBC Urine 0-5 /HPF (0-5)
--- NOTE | 2023-12-06 15:33 | PC.NURSE ---
UA obtained/sent to lab.
[2023-12-06 16:00] VITALS: BP 120/44; PULSE 91; RESP 17; TEMP 36.6; O2SAT 99
--- NOTE | 2023-12-06 17:08 | PHA.PROG ---
Admission Date/Time: December 06, 2023 16:54 Indication: Weight in k.183 kg Adjusted body weight in Kg: Mcgrann body weight in Kg: Obesity Dosing Indication % IBW: Serum Creatinine - Last 168 Hours 12/06/23 13:30 Creatinine 0.88 Estimated CrCl and GFR - Last 168 Hours 12/06/23 13:30 Estim Creat Clear Calc 141.4 Estimated GFR > 60 Vancomycin Loading Dose: 2000 MG Current Vancomycin Dosing Regimen: 1500 MG Q12 HRS Vancomycin Monitoring using AUC goal of 400 - 600 range with trough as surrogate marker: Date and Time for next Vancomycin Level to be drawn: WILL CHECK RANDOM AFTER 2 DOSES Pharmacist Comments on Vancomycin Plan: PREDICTED AUC OF 554 AT THIS REGIMEN. INDICATION IS RESPIRATORY SO CHOSE HIGHER DOSE, CAN REASSESS AFTER FIRST RANDOM Vancomycin dosing will take advantage of [employer] as a clinical decision support tool that uses Bayesian modeling to calculate individual patient's pharmacokinetic parameters and forecast the patient's drug concentration time course with the target goal AUC 24 range of 400 - 600 mg/L/hr.
[2023-12-06] MEDS: Piperacillin Sodium/Tazobactam 3.375 GM in 0.9 % Sodium Chloride 50 ML IV ×2 (17:09→23:06)
--- NOTE | 2023-12-06 17:09 | PM.IMHP ---
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 Garcia , patient also history of tetralogy of Fallot status post surgery 2019 with pulmonary valve replacement at [facility], patient was referred to emergency room by casino [employer] cashier due to persistent mild intermittent dry cough, sometimes productive of clear phlegm, as per patient he had hemoptysis couple months ago that has now resolved, he also complains of generalized fatigue and shortness of breath mostly with exertion, complaining of night sweats, he denies fever, chills, likely masked by steroids, no nausea, no vomiting, no abdominal pain, no urinary symptoms, no joint pains, no new rash, patient in September had a CTA chest that showed small filling defects in main and left main pulmonary arteries in the setting of pulmonary valve replacement, multiple cavitary and non cavitary fairly peripherally distributed pulmonary opacities, constellation of findings suggest possible prosthetic seeding, with bland central pulmonary emboli and septic emboli, pulmonary thromboembolism not excluded, after treatment with Rituxan and pulse dose steroids, he showed improvement of immunological manifestation such as rash, some improvement in CRP and resolution of hemoptysis, but due to ongoing leukocytosis, elevated ESR and persistent other symptoms there was a concern for underlying infection with possibility of infective endocarditis, patient will be admitted to [facility] for further workup including repeat CTA chest, repeat blood cultures, IV antibiotic and expert consultation. Review of Systems Review of Systems: General no headache, no dizziness, no fever chills. CVS no chest pain, no palpitation. Respiratory shortness of breath with exertion and cough. Gastrointestinal no nausea no vomiting, no abdominal pain no hematuria, no urinary urgency or burning Skin no rash Musculoskeletal no joint pains All other system reviewed and negative [facility] Medical History (Updated 12/07/23 @ 12:36 by Warner Magaña MD) Cavitary lesion of lung Septic pulmonary embolism Tetralogy of Fallot Proteinuria Vasculitis Family History Maternal Grandmother Diabetes Paternal Grandfather Diabetes Surgical History History of open heart surgery Social History Household Members: Family Housing: House Do you presently have visiting nurse or other home services: No Alcohol intake: never Patient Tobacco Use Status: Never used Tobacco Smoked in Last 30 Days: No Use of substances other than those prescribed or required for medical reasons: No Currently Displaying Signs/Symptoms of Drug Intoxication Withdrawal: No Have you been hit, kicked, punched, or otherwise hurt by someone within the past year? If so, by whom?: No Do you feel safe in your current relationship?: No Current Relationship Is there a partner from a previous relationship who is making you feel unsafe now?: No Are you made to feel afraid or neglected: No Advance Directives: No Advance Directives Information Provided: Yes Do you have a plan to hurt others: No Plan Recently lost weight without trying: No How much weight loss: Not applicable Eating poorly because of decreased appetite: No Nutrition screen score: 0 Nutrition Risks: No Nutritional Risk Current occupational status: employed Current occupation: [employer] Allergies Allergy/AdvReac Type Severity Reaction Status Date / Time No Known Allergies Allergy Verified 12/06/23 12:58 Active Medications: Current Medications Acetaminophen (Acetaminophen 325 Mg Tablet) 650 mg PO Q6H PRN PRN Reason: Pain, Mild (Pain Scale 1-3), fever or headache Aspirin (Aspirin 81 Mg Tab.Chew) 81 mg PO BEDTIME WU Calcium Carbonate (Calcium Carbonate 750 Mg Tab.Chew) 750 mg PO Q4H PRN PRN Reason: Heartburn Enoxaparin Sodium (Enoxaparin Sodium 40 Mg/0.4 Ml Syringe) 40 mg SUBCUT Q24H WU Piperacillin Sod/Tazobactam (Sod 3.375 gm/ Sodium Chloride) 50 mls @ 100 mls/hr IV Q6H WU Vancomycin HCl (Vancomycin/Ns) 2,000 mg in 500 mls @ 250 mls/hr IV ONCE STA Stop: 12/06/23 19:03 Vancomycin HCl 1,500 mg/ (Sodium Chloride) 500 mls @ 333.333 mls/hr IV Q12H WU Magnesium Hydroxide (Milk Of Magnesia 30 Ml Oral.Susp) 30 ml PO DAILY PRN PRN Reason: Constipation Melatonin (Melatonin 3 Mg Tablet) 6 mg PO BEDTIME PRN PRN Reason: Insomnia Omeprazole (Omeprazole 20 Mg Capsule.) 20 mg PO DAILY@0630 [facility] Ondansetron HCl (Ondansetron Hcl 4 Mg/2 Ml Vial) 4 mg IVPUSH Q6H PRN PRN Reason: Nausea and Vomiting Pharmacy Consult (Consult Rx Vancomycin Dosing) 1 each MISCELLANE DAILY PRN PRN Reason: Consult order Prednisone (Prednisone 20 Mg Tablet) 40 mg PO DAILY [facility] Sodium Chloride (0.9 % Sodium Chloride Flush 3 Ml Syringe) 3 ml IVFLUSH QSHIFT [facility] Vitamin D (Cholecalciferol (Vitamin D3) 10 Mcg Tablet) 10 mcg PO DAILY [facility] Home Medications ?Medication ?Instructions ?Recorded ?Confirmed ?Last Taken ?Type aspirin 81 mg chewable tablet 81 mg PO BEDTIME 07/31/23 12/06/23 12/05/23 20:00 History multivitamin (Daily Multi-Vitamin 2 tab PO DAILY 10/12/23 12/06/23 12/06/23 08:00 History tablet) prednisone 20 mg tablet See Taper PO DAILY 12/06/23 12/06/23 12/06/23 08:00 History sulfamethoxazole 800 1 tab PO MOWEFR 12/06/23 12/06/23 12/05/23 20:00 History mg-trimethoprim 160 mg tablet (Bactrim DS) Physical Exam Vital Signs and Narrative: Vital Signs: Last Vital Signs Temp 97.9 F 12/06/23 16:00 Pulse 91 12/06/23 16:00 Resp 17 12/06/23 16:00 BP 120/44 L 12/06/23 16:00 Pulse Ox 99 12/06/23 16:00 O2 Del Method Room Air 12/06/23 16:00 BMI result Body Mass Index 26.5 Const: Other: General cushingoid appearance with rose face, resting comfortably in no acute distress. Anicteric sclera Neck supple no JVD. CVS tachycardic with systolic murmur Respiratory lungs clear to auscultation, no respiratory distress, no wheeze, no rhonchi. Gastrointestinal abdomen soft, nontender, bowel sounds audible, no guarding , no rigidity. Extremities no edema. Neuro non focal Skin pallor/no rash Psych appropriate affect Results Labs 12/06/23 13:30 12/07/23 06:17 Labs: Laboratory Results - last 24 hr 12/06/23 12/06/23 12/06/23 13:30 13:31 15:16 MCV 87.7 MCH 27.7 MCHC 31.6 RDW 14.4 Plt Count 387 MPV 8.1 L Immature Gran % (Auto) 1.4 H Neut % (Auto) 93.1 H Lymph % (Auto) 3.2 L Isabella % (Auto) 2.1 Eos % (Auto) 0.0 Baso % (Auto) 0.2 Lymph # (Auto) 0.6 L Isabella # (Auto) 0.4 Eos # (Auto) 0.0 Baso # (Auto) 0.0 Abs Immat Gran (auto) 0.25 H Absolute Neuts (auto) 16.1 H Absolute Nucleated RBC 0.000 Nucleated RBC % (auto) 0.0 ESR 73 H Hold Purple Top SEE NOTE PT 15.0 H INR 1.2 H Anion Gap 14 Estim Creat Clear Calc 141.4 Estimated GFR > 60 Random Glucose 115 Lactic Acid 0.8 Calcium 9.4 Magnesium 1.8 Total Bilirubin 0.3 Direct Bilirubin 0.1 AST 22 ALT 18 Alkaline Phosphatase 91 Troponin I High Sens 3.6 C-Reactive Protein 7.32 H Total Protein 7.1 Albumin 3.7 TSH 0.49 Urine Color Yellow Urine Appearance Clear Urine pH 6.5 Ur Specific Phyllis 1.015 Urine Protein Negative Urine Glucose (UA) Negative Urine Ketones Negative Urine Blood Moderate (2+) H Urine Nitrite Negative Ur Leukocyte Esterase Negative Urine RBC >20 H Urine WBC 0-5 Ur Squamous Epith Cells 0-2 Urine Bacteria None Seen Hyaline Casts 0-2 COVID-19 (HESHAM) Negative COVID-19 Clin Com See Note Monoscreen Negative Influenza Type A (PCR) NEGATIVE Influenza Type B (PCR) NEGATIVE RSV RNA Qual (PCR) NEGATIVE SARS-CoV-2 RNA (RT-PCR) NEGATIVE Imaging Radiologist's Impressions: Impressions Chest X-Ray 12/06/23 13:49 IMPRESSION: No acute disease or significant interval change. Assessment and Plan (1) Cavitary lesion of lung: Status: Acute (2) Septic pulmonary embolism: Qualifiers: Chronicity: unspecified Acute cor pulmonale presence: without acute cor pulmonale Qualified Code(s): I26.90 - Septic pulmonary embolism without acute cor pulmonale Status: Acute (3) Weakness: Status: Acute (4) Tetralogy of Fallot: Status: Acute Plan 23-year-old gentleman with past medical history significant for tetralogy of fallot status post surgery as an and another surgery in 2019 at [facility] on lifelong aspirin, currently receiving treatment for vasculitis finished course of Rituxan on October 29 currently on tapering dose of steroids, due to persistent intermittent dry cough, shortness of breath with exertion generalized weakness patient being admitted to [facility] with concern for infective endocarditis and pulmonary septic emboli. Patient had dental work requiring 2 filling on October 11 and received prophylactic antibiotics, but his symptoms going on Sunday to the procedure. Generalized weakness/shortness of breath Patient with continued symptoms of shortness of breath, dry cough, night sweats, concerning for infective endocarditis possible prosthetic seeding with bland central pulmonary emboli and septic emboli. Will admit to telemetry unit, obtain echocardiogram, repeat CTA chest, follow blood cultures CRP 7.32, ESR 73 Chronic leukocytosis likely due to steroids,infection, SIRs criteria with leukocytosis and tachycardia. Normal lactic acid. Empiric IV vancomycin and IV Zosyn initiated on 12/05 for possible endocarditis/septic pulm.emboli. Cardiology and Infectious Disease consultation History of vasculitis Finished course of Rituxan currently on prednisone 30 mg daily Will add PPI for GI prophylaxis Continue outpatient follow-up with Rheumatology History of tetralogy of Fallot Status post pulmonic valve replacement in 2019 at [facility], continue aspirin. Cardiology consult for possible prosthetic seeding , repeat echocardiogram Follow blood cultures Mild acute hyperkalemia potassium 5.2 question hemolyzed, will repeat labs, normal renal function. DVT prophylaxis with Lovenox Full code In my clinical judgment patient will require 2 night inpatient hospitalization for management of generalized weakness night sweat with possible underlying infective endocarditis requiring further workup and expert consultation and IV antibiotics. Quality Stroke Does the patient have a stroke diagnosis?: No VTE Prior VTE?: No VTE Risk Level:: Medical - moderate - high VTE Device Contraindication: Treatment Not Indicated VTE Drug Contraindication: N/A - Med Ordered
--- NOTE | 2023-12-06 17:16 | PC.NURSE ---
pt to CTA at this time.
[2023-12-06] MEDS: iohexoL 350 MG/ML 100 ML INFUS..BTL IV (17:20)
[2023-12-06] MEDS: Enoxaparin Sodium 40 MG/0.4 ML SYRINGE SUBCUT (17:37)
[2023-12-06] MEDS: vancomycin/NS 2,000 MG/500 ML PLAST..BAG 250 MG IV (17:37)
[2023-12-06 20:31] VITALS: BP 146/71; PULSE 97; RESP 18; TEMP 36.6; O2SAT 95
[2023-12-06] MEDS: Aspirin 81 MG TAB.CHEW PO (23:05)
[2023-12-06] MEDS: 0.9 % Sodium Chloride Flush 3 ML SYRINGE IVFLUSH (23:06)
[2023-12-07] VITALS: BP 125/58; PULSE 96; RESP 18; TEMP 36.7; O2SAT 96
[2023-12-07 04:00] VITALS: BP 123/58; PULSE 91; RESP 16; TEMP 36.3; O2SAT 94
[2023-12-07] MEDS: Omeprazole 20 MG CAPSULE.DR PO (05:26)
[2023-12-07] MEDS: Piperacillin Sodium/Tazobactam 3.375 GM in 0.9 % Sodium Chloride 50 ML IV ×2 (05:26→11:50)
[2023-12-07] MEDS: vancomycin HCL 1,500 MG in 0.9 % Sodium Chloride 500 ML 333.33 MG IV (06:18)
[2023-12-07 06:48] LABS: Creatinine Clr Calc Pharmacy 144.7; Estimated Glomerular Filt Rate > 60
--- NOTE | 2023-12-07 07:00 | CA_ITS ---
Transthoracic Echocardiogram Patient (Last, First, Middle): Elias Lowry, Gender: Male Date of : 2000 Age: 23 Procedure Date: 12/07/2023 Procedure Type: Transthoracic Echocardiogram Location[place] [facility] [place] Height: 180.34 cm Weight: 86.18 kg BSA: 2.06 m2 Heart Rate: 96 bpm BP: 123 / 58 mmHg Relay Shop Supervisor: SB Referring MD: Yandy Barillas MD Plant Attendant Or Assistant Operator: Raman Wood MD Symptoms: prostetic cardiac valve Study Quality: Adequate ECG Rhythm: Sinus Conclusions: - 1. Abnormal function of bioprosthetic pulmonic valve with stenosis with mean gradient of 30 mmHg with large vegetation consistent with endocarditis 2. Normal LV ejection fraction at 55-60% 3. Mildly to moderately dilated right ventricle with severely reduced systolic function 4. Moderate to severely elevated right ventricular systolic pressure 5. No gross pericardial effusion 6. No evidence of VSD Findings Left Ventricle Normal left ventricular size, thickness, and systolic function. The visually estimated ejection fraction is between 55-60%. Spectral Doppler is indicative of a normal filling pattern. There is no evidence of a ventricular septal defect. Right Ventricle Mildly increased right ventricular cavity size. There is severely decreased right ventricular systolic function. There is mildly increased right ventricular wall thickness. Atria The left atrium is normal in size. There is no evidence of interatrial shunt. The right atrium is mildly dilated. Aortic Valve Normal aortic valve structure and function. There is no aortic valve stenosis. There is no aortic valve regurgitation. Mitral Valve Normal mitral valve structure and function. There is trace mitral valve regurgitation. There is no mitral valve stenosis. Pulmonic Valve A bioprosthetic pulmonic valve is present. The prosthetic pulmonic valve appears to be functioning abnormally. Echo findings are consistent with stenosis of the pulmonic valve prosthesis. There is a large mobile mass on the pulmonic valve. The mass measures 1.00 cm x 0.70 cm. The mass is consistent with vegetation. Multiple leaflets have masses that would suggest vegetation, largest 1 cm x 0.7 cm Tricuspid Valve Normal tricuspid valve structure. There is mild tricuspid valve regurgitation. Normal right atrial pressure. RV systolic pressure is increased consistent with pulmonic valve stenosis. Great Vessels All visible segments of the aorta are normal in size. The visualized portions of the pulmonary artery and branches are normal. Venous The inferior vena cava is normal in size and collapses greater than 50% with inspiration. Pericardium/Pleural There is no evidence of pericardial effusion. Prior Study Comparison No prior study available for comparison. Measurements 2D Linear Measurements IVSd: 1.15 0.6-0.9/0.6-1.0 cm LVIDd: 5.19 3.9-5.3/4.2-5.9 cm LVIDd Index: 2.52 2.4-3.2/2.2-3.1 cm/m2 LVIDs: 3.27 2.0-3.6 cm LVPWd: 1.15 0.7-1.1 cm LA Diam: 4.20 2.7-3.8/3.0-4.0 cm LAIDs Index: 2.04 1.5-2.3 cm/m2 LV Mass: 291.61 67-162/88-224 g LV Mass Index: 141.56 43-95/49-115 g/m2 LVOT Diam: 2.10 3.0+(-)1.3 cm 2D Systolic Function EF 4C: 58.10 >55% EF 2C: 52.50 >55% Mitral Valve MV Pk E: 0.89 MV PK A: 0.59 MV Decel Time: 147.00 E/A: 1.50 E'Lateral: 11.10 E'Medial: 6.09 E/E' Med: 14.60 E/E' Lat: 8.00 PHT: 43.00 MVA PHT: 5.12 Decel [place]: 6.04 Aortic Valve AoV Pk [place]: 1.15 AoV Pk Grad: 5.00 KAVYA: 2.66 LVOT LVOT Pk [place]: 1.01 LVOT Mn [place]: 0.65 LVOT VTI: 0.17 LVOT Pk Grad: 4.00 LVOT Mn Grad: 2.00 LVOT Diam: 2.10 LVOT Area: 3.46 Diastolic Function MV Pk E: 0.89 MV Pk A: 0.59 E/A: 1.50 E'Medial: 6.09 E/E' Med: 14.60 E' Laterial: 11.10 E/E' Lat: 8.00 Right Ventricle TAPSE (mm): 5.30 TVS' [place]: 6.60 Tricuspid Valve TR Pk [place]: 3.53 TR Pk Grad: 50.00 RA Press: 3.00 RVSP: 53.00 Great Vessels Aorta Sinus of Valsalva: 3.20 2.0-3.5 cm Ao Asc: 3.30 2.1-3.4 cm Ao Arch: 2.70 Pulmonary Veins Pulm Vein S/D 0.70 Pulmonary Valve PV Pk [place]: 3.45 PV Min [place]: 2.67 Peak PV Grad: 48.00 PV Mn Grad: 32.00 Updated in Other Vendor System with Status of Final Raman Wood MD electronically signed on 12/07/2023 12:12:44 PM with status of Final
[2023-12-07] MEDS: predniSONE 10 MG TABLET 30 MG PO (07:57)
[2023-12-07] MEDS: Cholecalciferol (Vitamin D3) 10 MCG TABLET PO (07:58)
[2023-12-07 08:00] VITALS: BP 125/62; PULSE 90; RESP 16; TEMP 36.5; O2SAT 96
--- NOTE | 2023-12-07 11:13 | P.CONCA_ITS ---
History of Present Illness History of Present Illness Date of Service: 12/07/23 Requesting physician: Yandy Barillas Consult reason: other (Endocarditis) Chief complaint: shortness of breath/ weakness Narrative: I was consulted to see Elias in cardiology consultation today for suspicion of endocarditis. He has a pleasant 23-year-old man who is not very verbal, history obtained mostly from the mother at bedside. 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 This was done at [facility] in [facility]. He would done well since then. He has been taking antibiotic prophylaxis ever since the pulmonic valve replacement. He has had no other significant complication related to his prior repair. Denies any symptoms of palpitations, syncope. However since June he has been having symptoms of fatigue and weakness and had gradually developed dry cough. He subsequently developed a rash on his feet and he was suspected to have possible vasculitis. He was then treated for the same including treatment with rituximab and steroids. His rash improved but he continued to have symptoms of weakness and fatigue and tiredness. He also had significant cough. He had echocardiogram in July at [facility] which showed increased gradient across the pulmonic valve compared to his prior echocardiogram. He had a COVID infection and subsequently had CT scan of the chest because of his continues cough and ground-glass opacity which was felt to be residual of COVID infection. Who continued to have symptoms and was seen by rheumatology. Subsequently the CT scan in our system which showed multiple cavitary lesions raising the suspicion for possible embolic phenomenon. However he was continued on steroid therapy and continue to worsen. Was seen yesterday by and given his non response to therapy as well has his murmur and continues elevation of inflammatory markers and white blood cell count and CT scan findings he was referred for further evaluation of endocarditis. He was therefore admitted yesterday to the hospital. Blood cultures were drawn. Subsequently blood cultures positive for strep species. He was started on antibiotics yesterday. He denies any orthopnea or PND although continues to have cough. Denies any abdominal distension. Denies any lightheadedness, syncope. He said since been started on rituximab therapy his rash on the skin has improved. He denies any painful lesions in his palms or soles. Denies any visual changes. Denies any central neurologic symptoms. Review of Systems 2 Constitutional: Constitutional: Denies body ache(s), Reports fatigue, Reports lethargy, Reports malaise, Reports night sweats and Reports weakness Eyes: Eyes: Denies no additional eye complaints Cardiovascular: Cardiovascular: Denies chest pain, Denies rapid heart rate, Denies leg edema, Denies lightheadedness, Denies Loss of Consciousness and Reports dyspnea on exertion Respiratory: Respiratory: Reports cough and Reports dyspnea on exertion Gastrointestinal: Gastrointestinal: Reports no additional gastrointestinal complaints Genitourinary: Genitourinary: Reports no additional male genitourinary complaints Musculoskeletal: Musculoskeletal: Reports no additional musculoskeletal complaints Neurologic: Reports system reviewed and no additional complaints, except as documented and Reports weakness Endocrine: Endocrine: Reports fatigue Allergic/Immunologic: Allergic/Immunologic: Reports no additional allergic/immunologic complaints [facility] Past Medical History Medical History Tetralogy of Fallot Proteinuria Vasculitis Family History Family History Maternal Grandmother Diabetes Paternal Grandfather Diabetes Surgical History Surgical History History of open heart surgery Social History Social History Household Members: Family Housing: House Do you presently have visiting nurse or other home services: No Alcohol intake: never Patient Tobacco Use Status: Never used Tobacco Smoked in Last 30 Days: No Use of substances other than those prescribed or required for medical reasons: No Currently Displaying Signs/Symptoms of Drug Intoxication Withdrawal: No Have you been hit, kicked, punched, or otherwise hurt by someone within the past year? If so, by whom?: No Do you feel safe in your current relationship?: No Current Relationship Is there a partner from a previous relationship who is making you feel unsafe now?: No Are you made to feel afraid or neglected: No Advance Directives: No Advance Directives Information Provided: Yes Do you have a plan to hurt others: No Plan Recently lost weight without trying: No How much weight loss: Not applicable Eating poorly because of decreased appetite: No Nutrition screen score: 0 Nutrition Risks: No Nutritional Risk Current occupational status: employed Current occupation: [employer] Allergies Allergy/AdvReac Type Severity Reaction Status Date / Time No Known Allergies Allergy Verified 12/06/23 12:58 Active Medications: Current Medications Acetaminophen (Acetaminophen 325 Mg Tablet) 650 mg PO Q6H PRN PRN Reason: Pain, Mild (Pain Scale 1-3), fever or headache Aspirin (Aspirin 81 Mg Tab.Chew) 81 mg PO BEDTIME [facility] Last Admin: 12/06/23 23:05 Dose: 81 mg Calcium Carbonate (Calcium Carbonate 750 Mg Tab.Chew) 750 mg PO Q4H PRN PRN Reason: Heartburn Enoxaparin Sodium (Enoxaparin Sodium 40 Mg/0.4 Ml Syringe) 40 mg SUBCUT Q24H [facility] Last Admin: 12/06/23 17:37 Dose: 40 mg Piperacillin Sod/Tazobactam (Sod 3.375 gm/ Sodium Chloride) 50 mls @ 100 mls/hr IV Q6H [facility] Last Infusion: 12/07/23 06:18 Dose: Infused Vancomycin HCl 1,500 mg/ (Sodium Chloride) 500 mls @ 333.333 mls/hr IV Q12H [facility] Last Infusion: 12/07/23 07:56 Dose: Infused Magnesium Hydroxide (Milk Of Magnesia 30 Ml Oral.Susp) 30 ml PO DAILY PRN PRN Reason: Constipation Melatonin (Melatonin 3 Mg Tablet) 6 mg PO BEDTIME PRN PRN Reason: Insomnia Omeprazole (Omeprazole 20 Mg Capsule.Dr) 20 mg PO DAILY@0630 [facility] Last Admin: 12/07/23 05:26 Dose: 20 mg Ondansetron HCl (Ondansetron Hcl 4 Mg/2 Ml Vial) 4 mg IVPUSH Q6H PRN PRN Reason: Nausea and Vomiting Pharmacy Consult (Consult Rx Vancomycin Dosing) 1 each MISCELLANE DAILY PRN PRN Reason: Consult order Prednisone (Prednisone 10 Mg Tablet) 30 mg PO DAILY [facility] Stop: 12/20/23 09:01 Last Admin: 12/07/23 07:57 Dose: 30 mg Sodium Chloride (0.9 % Sodium Chloride Flush 3 Ml Syringe) 3 ml IVFLUSH QSHIFT [facility] Last Admin: 12/07/23 08:04 Dose: Not Given Vitamin D (Cholecalciferol (Vitamin D3) 10 Mcg Tablet) 10 mcg PO DAILY [facility] Last Admin: 12/07/23 07:58 Dose: 10 mcg Home Medications ?Medication ?Instructions ?Recorded ?Confirmed ?Last Taken ?Type aspirin 81 mg chewable tablet 81 mg PO BEDTIME 07/31/23 12/06/23 12/05/23 20:00 History multivitamin (Daily Multi-Vitamin 2 tab PO DAILY 10/12/23 12/06/23 12/06/23 08:00 History tablet) prednisone 20 mg tablet See Taper PO DAILY 12/06/23 12/06/23 12/06/23 08:00 History sulfamethoxazole 800 1 tab PO MOWEFR 12/06/23 12/06/23 12/05/23 20:00 History mg-trimethoprim 160 mg tablet (Bactrim DS) Physical Exam 2 Vital Signs: Vital Signs: Last Vital Signs Temp 97.7 F 12/07/23 08:00 Pulse 90 12/07/23 08:00 Resp 16 12/07/23 08:00 BP 125/62 12/07/23 08:00 Pulse Ox 96 12/07/23 08:00 O2 Del Method Room Air 12/07/23 08:00 BMI result Body Mass Index 26.5 Const: General: cooperative, comfortable, alert, awake and tired appearing Nutritional Appearance: overweight Orientation/consciousness: patient oriented x3 Limitations: no limitations HEENT: Head: Yes normocephalic and Yes atraumatic Neck: Neck: Yes trachea midline, Yes supple and Yes no JVD Chest: Chest palpation & inspection: normal inspection of the chest and other (Well-healed sternotomy scar) Resp: Effort & Inspection: normal respiratory effort Auscultation: v esicular breath sounds Cardio: Jugular venous distension: no JVD Palpation: no thrill Rate: r egular rate Rhythm: regular rhythm Heart sounds: S1 normal heart sound present, S2 normal heart sound present, no click, no gallops and Murmur heart sound present systolic mid, decrescendo, crescendo and at the left sternal border GI: Percussion: Yes normal to percussion Skin: General skin exam: no rashes or lesions noted and no other (No sequelae of endocarditis) Neuro: General: patient oriented x3 and no focal motor deficits Extrem: General: Yes no clubbing, cyanosis or edema Psych: Appearance: grossly normal Affect: Sad affect present Objective Labs and Meds 12/06/23 13:30 12/07/23 06:17 Lab results: Laboratory Results - last 24 hr 12/06/23 12/06/23 12/06/23 13:30 13:31 15:16 WBC 17.3 H RBC 3.25 L Hgb 9.0 L Hct 28.5 L MCV 87.7 MCH 27.7 MCHC 31.6 RDW 14.4 Plt Count 387 MPV 8.1 L Immature Gran % (Auto) 1.4 H Neut % (Auto) 93.1 H Lymph % (Auto) 3.2 L [place] % (Auto) 2.1 Eos % (Auto) 0.0 Baso % (Auto) 0.2 Lymph # (Auto) 0.6 L [place] # (Auto) 0.4 Eos # (Auto) 0.0 Baso # (Auto) 0.0 Abs Immat Gran (auto) 0.25 H Absolute Neuts (auto) 16.1 H Absolute Nucleated RBC 0.000 Nucleated RBC % (auto) 0.0 ESR 73 H Hold Purple Top SEE NOTE PT 15.0 H INR 1.2 H Sodium 138 Potassium 5.2 H Chloride 104 Carbon Dioxide 25 Anion Gap 14 BUN 12 Creatinine 0.88 Estim Creat Clear Calc 141.4 Estimated GFR > 60 Random Glucose 115 Lactic Acid 0.8 Calcium 9.4 Magnesium 1.8 Total Bilirubin 0.3 Direct Bilirubin 0.1 AST 22 ALT 18 Alkaline Phosphatase 91 Troponin I High Sens 3.6 C-Reactive Protein 7.32 H B-Natriuretic Peptide Cancelled Total Protein 7.1 Albumin 3.7 TSH 0.49 Urine Color Yellow Urine Appearance Clear Urine pH 6.5 Ur Specific [place] 1.015 Urine Protein Negative Urine Glucose (UA) Negative Urine Ketones Negative Urine Blood Moderate (2+) H Urine Nitrite Negative Ur Leukocyte Esterase Negative Urine RBC >20 H Urine WBC 0-5 Ur Squamous Epith Cells 0-2 Urine Bacteria None Seen Hyaline Casts 0-2 COVID-19 ([facility]) Negative COVID-19 Clin Com See Note Monoscreen Negative Influenza Type A (PCR) NEGATIVE Influenza Type B (PCR) NEGATIVE RSV RNA Qual (PCR) NEGATIVE SARS-CoV-2 RNA (RT-PCR) NEGATIVE 12/07/23 06:17 WBC RBC Hgb Hct MCV MCH MCHC RDW Plt Count MPV Immature Gran % (Auto) Neut % (Auto) Lymph % (Auto) [place] % (Auto) Eos % (Auto) Baso % (Auto) Lymph # (Auto) [place] # (Auto) Eos # (Auto) Baso # (Auto) Abs Immat Gran (auto) Absolute Neuts (auto) Absolute Nucleated RBC Nucleated RBC % (auto) ESR Hold Purple Top SEE NOTE PT INR Sodium Potassium Chloride Carbon Dioxide Anion Gap BUN Creatinine 0.86 Estim Creat Clear Calc 144.7 Estimated GFR > 60 Random Glucose Lactic Acid Calcium Magnesium Total Bilirubin Direct Bilirubin AST ALT Alkaline Phosphatase Troponin I High Sens C-Reactive Protein B-Natriuretic Peptide Total Protein Albumin TSH Urine Color Urine Appearance Urine pH Ur Specific [place] Urine Protein Urine Glucose (UA) Urine Ketones Urine Blood Urine Nitrite Ur Leukocyte Esterase Urine RBC Urine WBC Ur Squamous Epith Cells Urine Bacteria Hyaline Casts COVID-19 ([facility]) COVID-19 Clin Com Monoscreen Influenza Type A (PCR) Influenza Type B (PCR) RSV RNA Qual (PCR) SARS-CoV-2 RNA (RT-PCR) Imaging Radiologist's impression: Impressions Chest X-Ray 12/06/23 13:49 IMPRESSION: No acute disease or significant interval change. Chest CTA 12/06/23 17:26 IMPRESSION: * Bilateral lucent, cavitary lesions and nodular foci are present in both lungs in this patient with history of septic emboli. * There are some new or worsening thrombotic or embolic changes in pulmonary arteries. 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 * Persistent splenomegaly. The critical test result was discussed with Dr. Ruth at 7:35 PM on 12/06/2023 and it was ascertained that the content and the importance of the findings was understood at the time of the direct communication. 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 His clinical course has been slow and insidious consistent with endocarditis with vasculitis phenomena noted with global nephritis as a skin lesions. However currently his blood cultures are positive with Gram-positive cocci in chains most likely strep species. Will continue with broad-spectrum antibiotics. Discussed the case with Dr. Reuben Hall his electrical technology instructor. Given his complex history he will require care at a tertiary care hospital in [place]. This was discussed with Dr. Hall as well as mom and the patient. Will make arrangements for him to be [facility] [place] for further treatment which may include replacement of his pulmonic valve. Continue supportive care. Greater than 45 minutes was spent in managing and coordinating his care. Thank you for allowing me to partake in his care Procedures Date of Service Date of Service: 12/07/23
[2023-12-07 12:00] VITALS: BP 117/58; PULSE 96; RESP 18; TEMP 35.9; O2SAT 95
--- NOTE | 2023-12-07 12:31 | P.CONPL_ITS ---
History of Present Illness History of Present Illness Consult date: 12/07/23 Chief complaint: shortness of breath/ weakness Narrative: This is an inpatient pulmonary consultation. 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 He has been having symptoms of fatigue and weakness and had gradually developed dry cough. He subsequently developed a rash on his feet and he was suspected to have possible vasculitis. He was then treated for the same including treatment with rituximab and steroids. His rash improved but he continued to have symptoms of weakness and fatigue and tiredness. He also had significant cough. He had echocardiogram in July at [facility] which showed increased gradient across the pulmonic valve compared to his prior echocardiogram. He had a COVID infection and subsequently had CT scan of the chest because of his continues cough and ground-glass opacity which was felt to be residual of COVID infection. Who continued to have symptoms and was seen by rheumatology. Subsequently the CT scan in our system which showed multiple cavitary lesions raising the suspicion for possible embolic phenomenon. Given his non response to therapy as well has his murmur and continues elevation of inflammatory markers and white blood cell count and CT scan findings he was referred for further evaluation of endocarditis. He was therefore admitted yesterday to the hospital. Blood cultures were drawn. Subsequently blood cultures positive for strep species. He was started on antibiotics yesterday. He denies any orthopnea or PND although continues to have cough. Denies any abdominal distension. Denies any lightheadedness, syncope. Review of Systems 2 Constitutional: Constitutional: Denies body ache(s), Reports fatigue, Reports lethargy, Reports malaise, Reports night sweats and Reports weakness Eyes: Eyes: Denies no additional eye complaints Cardiovascular: Cardiovascular: Denies chest pain, Denies rapid heart rate, Denies leg edema, Denies lightheadedness, Denies Loss of Consciousness and Reports dyspnea on exertion Respiratory: Respiratory: Reports cough, Denies hemoptysis and Reports dyspnea on exertion Gastrointestinal: Gastrointestinal: Reports no additional gastrointestinal complaints Genitourinary: Genitourinary: Reports no additional male genitourinary complaints Musculoskeletal: Musculoskeletal: Reports no additional musculoskeletal complaints Neurologic: Reports system reviewed and no additional complaints, except as documented and Reports weakness Endocrine: Endocrine: Reports fatigue Allergic/Immunologic: Allergic/Immunologic: Reports no additional allergic/immunologic complaints [facility] Past Medical History Medical History (Updated 12/07/23 @ 12:36 by Warner Magaña MD) Cavitary lesion of lung Septic pulmonary embolism Tetralogy of Fallot Proteinuria Vasculitis Family History Family History Maternal Grandmother Diabetes Paternal Grandfather Diabetes Surgical History Surgical History History of open heart surgery Social History Social History Household Members: Family Housing: House Do you presently have visiting nurse or other home services: No Alcohol intake: never Patient Tobacco Use Status: Never used Tobacco Smoked in Last 30 Days: No Use of substances other than those prescribed or required for medical reasons: No Currently Displaying Signs/Symptoms of Drug Intoxication Withdrawal: No Have you been hit, kicked, punched, or otherwise hurt by someone within the past year? If so, by whom?: No Do you feel safe in your current relationship?: No Current Relationship Is there a partner from a previous relationship who is making you feel unsafe now?: No Are you made to feel afraid or neglected: No Advance Directives: No Advance Directives Information Provided: Yes Do you have a plan to hurt others: No Plan Recently lost weight without trying: No How much weight loss: Not applicable Eating poorly because of decreased appetite: No Nutrition screen score: 0 Nutrition Risks: No Nutritional Risk Current occupational status: employed Current occupation: [employer] Allergies Allergy/AdvReac Type Severity Reaction Status Date / Time No Known Allergies Allergy Verified 12/06/23 12:58 Active Medications: Current Medications Acetaminophen (Acetaminophen 325 Mg Tablet) 650 mg PO Q6H PRN PRN Reason: Pain, Mild (Pain Scale 1-3), fever or headache Aspirin (Aspirin 81 Mg Tab.Chew) 81 mg PO BEDTIME [facility] Last Admin: 12/06/23 23:05 Dose: 81 mg Calcium Carbonate (Calcium Carbonate 750 Mg Tab.Chew) 750 mg PO Q4H PRN PRN Reason: Heartburn Enoxaparin Sodium (Enoxaparin Sodium 40 Mg/0.4 Ml Syringe) 40 mg SUBCUT Q24H [facility] Last Admin: 12/06/23 17:37 Dose: 40 mg Piperacillin Sod/Tazobactam (Sod 3.375 gm/ Sodium Chloride) 50 mls @ 100 mls/hr IV Q6H [facility] Last Admin: 12/07/23 11:50 Dose: 100 mls/hr Vancomycin HCl 1,500 mg/ (Sodium Chloride) 500 mls @ 333.333 mls/hr IV Q12H [facility] Last Infusion: 12/07/23 07:56 Dose: Infused Magnesium Hydroxide (Milk Of Magnesia 30 Ml Oral.Susp) 30 ml PO DAILY PRN PRN Reason: Constipation Melatonin (Melatonin 3 Mg Tablet) 6 mg PO BEDTIME PRN PRN Reason: Insomnia Omeprazole (Omeprazole 20 Mg Capsule.Dr) 20 mg PO DAILY@0630 [facility] Last Admin: 12/07/23 05:26 Dose: 20 mg Ondansetron HCl (Ondansetron Hcl 4 Mg/2 Ml Vial) 4 mg IVPUSH Q6H PRN PRN Reason: Nausea and Vomiting Pharmacy Consult (Consult Rx Vancomycin Dosing) 1 each MISCELLANE DAILY PRN PRN Reason: Consult order Prednisone (Prednisone 10 Mg Tablet) 30 mg PO DAILY [facility] Stop: 12/20/23 09:01 Last Admin: 12/07/23 07:57 Dose: 30 mg Sodium Chloride (0.9 % Sodium Chloride Flush 3 Ml Syringe) [facility] Last Admin: 12/07/23 08:04 Dose: Not Given Vitamin D (Cholecalciferol (Vitamin D3) 10 Mcg Tablet) 10 mcg PO DAILY [facility] Last Admin: 12/07/23 07:58 Dose: 10 mcg Home Medications ?Medication ?Instructions ?Recorded ?Confirmed ?Last Taken ?Type aspirin 81 mg chewable tablet 81 mg PO BEDTIME 07/31/23 12/06/23 12/05/23 20:00 History multivitamin (Daily Multi-Vitamin 2 tab PO DAILY 10/12/23 12/06/23 12/06/23 08:00 History tablet) prednisone 20 mg tablet See Taper PO DAILY 12/06/23 12/06/23 12/06/23 08:00 History sulfamethoxazole 800 1 tab PO MOWEFR 12/06/23 12/06/23 12/05/23 20:00 History mg-trimethoprim 160 mg tablet (Bactrim DS) Physical Exam 2 Vital Signs: Vital Signs: Last Vital Signs Temp 97.7 F 12/07/23 08:00 Pulse 90 12/07/23 08:00 Resp 16 12/07/23 08:00 BP 125/62 12/07/23 08:00 Pulse Ox 96 12/07/23 08:00 O2 Del Method Room Air 12/07/23 08:00 BMI result Body Mass Index 26.5 Const: General: cooperative, comfortable, alert, awake, Cushingoid facies and tired appearing Nutritional Appearance: overweight O rientation/consciousness: patient oriented x3 Limitations: no limitations HEENT: Head: Yes normocephalic and Yes atraumatic Neck: Neck: Yes trachea midline, Yes supple and Yes no JVD Chest: Chest palpation & inspection: normal inspection of the chest and other (Well-healed sternotomy scar) Resp: Effort & Inspection: normal respiratory effort Auscultation: clear to auscultation bilaterally Cardio: Rate: regular rate Rhythm: regular rhythm Heart sounds: S1 normal heart sound present, S2 normal heart sound present, no click, no gallops and Murmur heart sound present systolic mid, decrescendo, crescendo and at the left sternal border GI: Percussion: Yes normal to percussion Skin: General skin exam: no rashes or lesions noted and no other (No sequelae of endocarditis) Neuro: General: patient oriented x3 and no focal motor deficits Extrem: General: Yes no clubbing, cyanosis or edema Psych: Appearance: grossly normal Affect: Sad affect present Results Laboratory Findings 12/06/23 13:30 12/07/23 06:17 ABG, PT/INR, D-dimer: PT/INR, D-dimer PT 15.0 SEC (11.1-13.3) H 12/06/23 13:30 INR 1.2 (0.9-1.1) H 12/06/23 13:30 Abnormal lab findings: Abnormal Labs 12/06/23 12/06/23 13:30 15:16 WBC 17.3 H RBC 3.25 L Hgb 9.0 L Hct 28.5 L MPV 8.1 L Immature Gran % (Auto) 1.4 H Neut % (Auto) 93.1 H Lymph % (Auto) 3.2 L Lymph # (Auto) 0.6 L Abs Immat Gran (auto) 0.25 H Absolute Neuts (auto) 16.1 H ESR 73 H PT 15.0 H INR 1.2 H Potassium 5.2 H C-Reactive Protein 7.32 H Urine Blood Moderate (2+) H Urine RBC >20 H Microbiology: Microbiology 12/06/23 13:30 Blood - Venous Blood Culture - Preliminary Prelim: GPC Gram Stain only 12/06/23 13:30 Blood - Venous Blood Culture - Preliminary Prelim: GPC Gram Stain only Assessment and Plan (1) Infective endocarditis: Qualifiers: Infective endocarditis organism: bacterial Chronicity: subacute Q ualified Code(s): I33.0 - Acute and subacute infective endocarditis Status: Acute (2) Septic pulmonary embolism: Qualifiers: Chronicity: unspecified Acute cor pulmonale presence: without acute cor pulmonale Qualified Code(s): I26.90 - Septic pulmonary embolism without acute cor pulmonale Status: Acute (3) Cavitary lesion of lung: Status: Acute Plan continue IV antibiotics awaiting ECHO Needs to be transferred to a tertiary center Procedures Date of Service Date of Service: 12/07/23
--- NOTE | 2023-12-07 13:03 | MHC.CM.PN ---
Pt to be transferred to [facility] today.
--- NOTE | 2023-12-07 13:48 | HO.PM.IMPN ---
Subjective Subjective Date of Service: 12/07/23 Interval History: Being followed for generalized weakness fatigue . Patient offers no acute complaints denies fever, no chills, no nausea, no vomiting, no headaches no dizziness no chest pain or palpitation, no acute events overnight. Mother at bedside. Review of Systems All other system reviewed and are negative. Physical Exam Vital Signs: Vital Signs: Last Vital Signs Temp 96.6 F L 12/07/23 12:00 Pulse 96 12/07/23 12:00 Resp 18 12/07/23 12:00 BP 117/58 L 12/07/23 12:00 Pulse Ox 95 12/07/23 12:00 O2 Del Method Room Air 12/07/23 12:00 BMI result Body Mass Index 26.5 Const: Other: General cushingoid appearance with rose face, resting comfortably in no acute distress. Anicteric sclera Neck supple no JVD. CVS systolic murmur Respiratory lungs clear to auscultation, no respiratory distress, no wheeze, no rhonchi. Gastrointestinal abdomen soft, non tender, bowel sounds audible, no guarding , no rigidity. Extremities no edema. Neuro non focal Musculoskeletal no deformity Skin pallor/no rash Psych appropriate affect Objective Data Active Medications Acetaminophen (Acetaminophen 325 Mg Tablet) 650 mg PO Q6H PRN PRN Reason: Pain, Mild (Pain Scale 1-3), fever or headache Aspirin (Aspirin 81 Mg Tab.Chew) 81 mg PO BEDTIME [facility] Last Admin: 12/06/23 23:05 Dose: 81 mg Documented By: NURYS Calcium Carbonate (Calcium Carbonate 750 Mg Tab.Chew) 750 mg PO Q4H PRN PRN Reason: Heartburn Enoxaparin Sodium (Enoxaparin Sodium 40 Mg/0.4 Ml Syringe) 40 mg SUBCUT Q24H [facility] Last Admin: 12/06/23 17:37 Dose: 40 mg Documented By: DANIELA Piperacillin Sod/Tazobactam (Sod 3.375 gm/ Sodium Chloride) 50 mls @ 100 mls/hr IV Q6H [facility] Last Infusion: 12/07/23 12:20 Dose: Infused Documented By: JANINE Vancomycin HCl 1,500 mg/ (Sodium Chloride) 500 mls @ 333.333 mls/hr IV Q12H [facility] Last Infusion: 12/07/23 07:56 Dose: Infused Documented By: JANINE Magnesium Hydroxide (Milk Of Magnesia 30 Ml Oral.Susp) 30 ml PO DAILY PRN PRN Reason: Constipation Melatonin (Melatonin 3 Mg Tablet) 6 mg PO BEDTIME PRN PRN Reason: Insomnia Omeprazole (Omeprazole 20 Mg Capsule.Dr) 20 mg PO DAILY@0630 [facility] Last Admin: 12/07/23 05:26 Dose: 20 mg Documented By: NURYS Ondansetron HCl (Ondansetron Hcl 4 Mg/2 Ml Vial) 4 mg IVPUSH Q6H PRN PRN Reason: Nausea and Vomiting Pharmacy Consult (Consult Rx Vancomycin Dosing) 1 each MISCELLANE DAILY PRN PRN Reason: Consult order Prednisone (Prednisone 10 Mg Tablet) 30 mg PO DAILY [facility] Stop: 12/20/23 09:01 Last Admin: 12/07/23 07:57 Dose: 30 mg Documented By: JANINE Sodium Chloride (0.9 % Sodium Chloride Flush 3 Ml Syringe) 3 ml IVFLUSH QSHIFT [facility] Last Admin: 12/07/23 08:04 Dose: Not Given Documented By: JANINE Non-Admin Reason: IV Running Vitamin D (Cholecalciferol (Vitamin D3) 10 Mcg Tablet) 10 mcg PO DAILY [facility] Last Admin: 12/07/23 07:58 Dose: 10 mcg Documented By: JANINE Labs 12/06/23 13:30 12/07/23 06:17 Labs: Laboratory Results - last 24 hr 12/06/23 12/06/23 12/06/23 13:30 13:31 15:16 ESR 73 H Hold Purple Top Anion Gap 14 Estim Creat Clear Calc 141.4 Estimated GFR > 60 Random Glucose 115 Lactic Acid 0.8 Calcium 9.4 Magnesium 1.8 Total Bilirubin 0.3 Direct Bilirubin 0.1 AST 22 ALT 18 Alkaline Phosphatase 91 Troponin I High Sens 3.6 C-Reactive Protein 7.32 H B-Natriuretic Peptide Cancelled Total Protein 7.1 Albumin 3.7 TSH 0.49 Urine Color Yellow Urine Appearance Clear Urine pH 6.5 Ur Specific [place] 1.015 Urine Protein Negative Urine Glucose (UA) Negative Urine Ketones Negative Urine Blood Moderate (2+) H Urine Nitrite Negative Ur Leukocyte Esterase Negative Urine RBC >20 H Urine WBC 0-5 Ur Squamous Epith Cells 0-2 Urine Bacteria None Seen Hyaline Casts 0-2 COVID-19 ([facility]AM) Negative COVID-19 Clin Com See Note Monoscreen Negative Influenza Type A (PCR) NEGATIVE Influenza Type B (PCR) NEGATIVE RSV RNA Qual (PCR) NEGATIVE SARS-CoV-2 RNA (RT-PCR) NEGATIVE 12/07/23 06:17 ESR Hold Purple Top SEE NOTE Anion Gap Estim Creat Clear Calc 144.7 Estimated GFR > 60 Random Glucose Lactic Acid Calcium Magnesium Total Bilirubin Direct Bilirubin AST ALT Alkaline Phosphatase Troponin I High Sens C-Reactive Protein B-Natriuretic Peptide Total Protein Albumin TSH Urine Color Urine Appearance Urine pH Ur Specific [place] Urine Protein Urine Glucose (UA) Urine Ketones Urine Blood Urine Nitrite Ur Leukocyte Esterase Urine RBC Urine WBC Ur Squamous Epith Cells Urine Bacteria Hyaline Casts COVID-19 ([facility]AM) COVID-19 Clin Com Monoscreen Influenza Type A (PCR) Influenza Type B (PCR) RSV RNA Qual (PCR) SARS-CoV-2 RNA (RT-PCR) Microbiology Microbiology Results: Microbiology 12/06/23 13:30 Blood Culture - Preliminary Blood - Venous Prelim: GPC Gram Stain only 12/06/23 13:30 Blood Culture - Preliminary Blood - Venous Prelim: GPC Gram Stain only Assessment and Plan (1) Cavitary lesion of lung: Status: Acute (2) Infective endocarditis: Status: Acute Plan 23-year-old gentleman with past medical history significant for 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 Patient had dental work requiring 2 filling on October 11 and received prophylactic antibiotics, but his symptoms going on Sunday to the procedure. 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 Likely generalized weakness,shortness of breath, elevated WBC, CRP and ESR related to it. Echocardiogram showed large 1 cm x 0.7 cm mobile mass on pulmonic valve consistent with vegetation , with stenosis of pulmonic valve and malfunctioning. CTA chest showed bilateral lucent, cavitary lesions and nodular foci in both lungs consistent with septic emboli. Sepsis present on admission with elevated WBC, tachycardia related to endocarditis. Blood cultures x4 growing Gram-positive cocci in chains Continue IV vancomycin and IV Zosyn initiated on 12/05 Case discussed with Cardiology and pulmonology they agree with above treatment plan [facility] [place] accepted by patient crystal gazer Dr. Reuben Hall. History of vasculitis. Finished course of Rituxan currently on prednisone 30 mg daily Continue GI prophylaxis Continue outpatient follow-up with Rheumatology Mild acute hyperkalemia potassium 5.2 question hemolyzed, will repeat labs, normal renal function. DVT prophylaxis with Lovenox Full code In my clinical judgment patient will require continued inpatient hospitalization for continued IV antibiotics for underlying infective endocarditis. Quality Stroke Does the patient have a stroke diagnosis?: No VTE Prior VTE?: No VTE Risk Level:: Medical - moderate - high VTE Device Contraindication: Treatment Not Indicated VTE Drug Contraindication: N/A - Med Ordered
[2023-12-07 15:59] VITALS: BP 123/68; PULSE 92; RESP 14; TEMP 35.9; O2SAT 96
--- NOTE | 2023-12-07 16:37 | P.CNID_ITS ---
History of Present Illness Data of Consult Service Date: 12/07/23 Requesting physician: Yandy Barillas Primary Care Provider: Cecilia Ivey MD [facility] Reason for consult: bacteremia He presents with shortness of breath and fatigue for a day. He has no fever or chills. No one is ill. He has gram positive bacteremia. Review of Systems 2 Review of Systems: Yes all other systems are reviewed and are negative PMFSH Past Medical History Medical History Cavitary lesion of lung Septic pulmonary embolism Tetralogy of Fallot Proteinuria Vasculitis Family History Family History Maternal Grandmother Diabetes Paternal Grandfather Diabetes Family history: reviewed and not pertinent Surgical History Surgical History History of open heart surgery Social History Social History Household Members: Family Housing: House Do you presently have visiting nurse or other home services: No Alcohol intake: never Patient Tobacco Use Status: Never used Tobacco Smoked in Last 30 Days: No Use of substances other than those prescribed or required for medical reasons: No Currently Displaying Signs/Symptoms of Drug Intoxication Withdrawal: No Have you been hit, kicked, punched, or otherwise hurt by someone within the past year? If so, by whom?: No Do you feel safe in your current relationship?: No Current Relationship Is there a partner from a previous relationship who is making you feel unsafe now?: No Are you made to feel afraid or neglected: No Advance Directives: No Advance Directives Information Provided: Yes Do you have a plan to hurt others: No Plan Recently lost weight without trying: No How much weight loss: Not applicable Eating poorly because of decreased appetite: No Nutrition screen score: 0 Nutrition Risks: No Nutritional Risk Current occupational status: employed Current occupation: [employer] Allergies Allergy/AdvReac Type Severity Reaction Status Date / Time No Known Allergies Allergy Verified 12/06/23 12:58 Active Medications: Current Medications Acetaminophen (Acetaminophen 325 Mg Tablet) 650 mg PO Q6H PRN PRN Reason: Pain, Mild (Pain Scale 1-3), fever or headache Aspirin (Aspirin 81 Mg Tab.Chew) 81 mg PO BEDTIME [facility] Last Admin: 12/06/23 23:05 Dose: 81 mg Calcium Carbonate (Calcium Carbonate 750 Mg Tab.Chew) 750 mg PO Q4H PRN PRN Reason: Heartburn Enoxaparin Sodium (Enoxaparin Sodium 40 Mg/0.4 Ml Syringe) 40 mg SUBCUT Q24H [facility] Last Admin: 12/06/23 17:37 Dose: 40 mg Piperacillin Sod/Tazobactam (Sod 3.375 gm/ Sodium Chloride) 50 mls @ 100 mls/hr IV Q6H [facility] Last Infusion: 12/07/23 12:20 Dose: Infused Vancomycin HCl 1,500 mg/ (Sodium Chloride) 500 mls @ 333.333 mls/hr IV Q12H [facility] Last Infusion: 12/07/23 07:56 Dose: Infused Magnesium Hydroxide (Milk Of Magnesia 30 Ml Oral.Susp) 30 ml PO DAILY PRN PRN Reason: Constipation Melatonin (Melatonin 3 Mg Tablet) 6 mg PO BEDTIME PRN PRN Reason: Insomnia Omeprazole (Omeprazole 20 Mg Capsule.Dr) 20 mg PO DAILY@0630 [facility] Last Admin: 12/07/23 05:26 Dose: 20 mg Ondansetron HCl (Ondansetron Hcl 4 Mg/2 Ml Vial) 4 mg IVPUSH Q6H PRN PRN Reason: Nausea and Vomiting Pharmacy Consult (Consult Rx Vancomycin Dosing) 1 each MISCELLANE DAILY PRN PRN Reason: Consult order Prednisone (Prednisone 10 Mg Tablet) 30 mg PO DAILY [facility] Stop: 12/20/23 09:01 Last Admin: 12/07/23 07:57 Dose: 30 mg Sodium Chloride (0.9 % Sodium Chloride Flush 3 Ml Syringe) [address] [facility] Last Admin: 12/07/23 08:04 Dose: Not Given Vitamin D (Cholecalciferol (Vitamin D3) 10 Mcg Tablet) 10 mcg PO DAILY [facility] Last Admin: 12/07/23 07:58 Dose: 10 mcg Home Medications ?Medication ?Instructions ?Recorded ?Confirmed ?Last Taken ?Type aspirin 81 mg chewable tablet 81 mg PO BEDTIME 07/31/23 12/06/23 12/05/23 20:00 History multivitamin (Daily Multi-Vitamin 2 tab PO DAILY 10/12/23 12/06/23 12/06/23 08:00 History tablet) prednisone 20 mg tablet See Taper PO DAILY 12/06/23 12/06/23 12/06/23 08:00 History sulfamethoxazole 800 1 tab PO MOWEFR 12/06/23 12/06/23 12/05/23 20:00 History mg-trimethoprim 160 mg tablet (Bactrim DS) Physical Exam 2 Vital Signs: Vital Signs: Last Vital Signs Temp 96.7 F L 12/07/23 15:59 Pulse 92 12/07/23 15:59 Resp 14 12/07/23 15:59 BP 123/68 12/07/23 15:59 Pulse Ox 96 12/07/23 15:59 O2 Del Method Room Air 12/07/23 15:59 BMI result Body Mass Index 26.5 Cardio: Other: 2/6 JESUS,scar on chest Results Labs 12/06/23 13:30 12/07/23 06:17 Labs: BMP 12/07/23 06:17 Creatinine 0.86 Microbiology Microbiology Results: Microbiology 12/06/23 13:30 Blood - Venous Blood Culture - Preliminary Prelim: GPC Gram Stain only 12/06/23 13:30 Blood - Venous Blood Culture - Preliminary Prelim: GPC Gram Stain only Assessment and Plan (1) Cavitary lesion of lung: Status: Acute (2) Septic pulmonary embolism: Qualifiers: Chronicity: unspecified Acute cor pulmonale presence: without acute cor pulmonale Qualified Code(s): I26.90 - Septic pulmonary embolism without acute cor pulmonale Status: Acute Plan Endocarditis Tetralogy of Fallot Gram positive bacteremia. Prior surgery immunosuppression Kefzol and Vancomycin until cultures identified. He is going to [facility] in [place].
[2023-12-07] MEDS: Enoxaparin Sodium 40 MG/0.4 ML SYRINGE SUBCUT (16:41)
[2023-12-07] MEDS: 0.9 % Sodium Chloride Flush 3 ML SYRINGE IVFLUSH ×2 (16:42→19:50)
[2023-12-07 16:49] LABS: Vancomycin Random 12.5 mcg/mL (15-20)
--- NOTE | 2023-12-07 17:11 | HE.PHANOTE ---
RE: VANCO DOSING Random came back as 12.5. Based on stable/good renal function, age and indication (respiratory infection), dose is increased to 1000 mg q8h (predicted ljt=874 trough=16.2). Next random is scheduled for 12/08/23 @0800.
[2023-12-07] MEDS: ceFAZolin Sodium/Dextrose,Iso 2 GM/50 ML PIGGYBACK IV (17:51)
[2023-12-07] MEDS: vancomycin HCL 1,000 MG in 0.9 % Sodium Chloride 250 ML 270 MG IV (18:24)
[2023-12-07 20:00] VITALS: BP 111/59; PULSE 85; RESP 16; TEMP 36.1; O2SAT 97
[2023-12-07] MEDS: Aspirin 81 MG TAB.CHEW PO (21:50)
[2023-12-08] VITALS: BP 121/57; PULSE 86; RESP 16; TEMP 36.1; O2SAT 97
[2023-12-08] MEDS: ceFAZolin Sodium/Dextrose,Iso 2 GM/50 ML PIGGYBACK IV ×2 (01:10→09:28)
[2023-12-08] MEDS: vancomycin HCL 1,000 MG in 0.9 % Sodium Chloride 250 ML 270 MG IV ×2 (01:51→09:28)
[2023-12-08 04:00] VITALS: BP 117/68; PULSE 79; RESP 16; TEMP 36.5; O2SAT 97
--- NOTE | 2023-12-08 05:04 | PC.NURSE ---
Pt is AOx3, able to make his needs known, he is independent in his room. Pt is calm and cooperative w/care. He is familiar w/hospital settings and is pleasant. He has no c/o pain at this time. Family visited earlier, answered questions to the best of this RNs ability. Call talley within reach. Safety maintained throughout shift.
[2023-12-08] MEDS: Omeprazole 20 MG CAPSULE.DR PO (05:46)
[2023-12-08 08:00] VITALS: BP 118/64; PULSE 82; RESP 18; TEMP 36.4; O2SAT 96
[2023-12-08 08:13] LABS: Hematocrit 28.6 % (42.0-52.0); Mean Corpuscular HGB Conc 31.5 g/dl (31.0-36.0); Mean Corpuscular Hemoglobin 27.8 pg (27.0-33.0); Mean Corpuscular Volume 88.3 fL (80.0-98.0); Mean Platelet Volume 8.3 fL (9.4-12.4); Platelet Count 385 X10*3/uL (160-400); Red Blood Count 3.24 X10*6/uL (4.60-5.80); Red Cell Distribution Width 14.2 % (11.0-16.0); White Blood Count 9.2 X10*3/uL (4.8-10.8)
[2023-12-08 08:34] LABS: Vancomycin Random 18.4 mcg/mL (15-20)
[2023-12-08 08:35] LABS: Anion Gap 13 (12-20); Blood Urea Nitrogen 11 mg/dL (9-16); Calcium 9.1 mg/dL (8.4-10.2); Carbon Dioxide 26 mmol/L (22-29); Chloride 109 mmol/L (96-108); Creatinine Clr Calc Pharmacy 155.5; Estimated Glomerular Filt Rate > 60; Glucose Random 83 mg/dL (60-115); Potassium 4.8 mmol/L (3.3-5.1); Sodium 143 mmol/L (135-145)
--- NOTE | 2023-12-08 08:45 | HE.PHANOTE ---
Vancomcyin Dosing addendum Random level for 12/07 @1600 entered. Trough this morning came back at 18.4 after 4 doses ( 2000 mg, 1500 mg, 1000 mg x 2). Regimen changed yesterday. May need to decrease dose after this afternoons trough. creatinine stable.
[2023-12-08] MEDS: Cholecalciferol (Vitamin D3) 10 MCG TABLET PO (09:28)
[2023-12-08] MEDS: 0.9 % Sodium Chloride Flush 3 ML SYRINGE IVFLUSH (09:28)
[2023-12-08] MEDS: predniSONE 10 MG TABLET 30 MG PO (09:28)
--- NOTE | 2023-12-08 10:32 | P.DS_ITS ---
DS: Providers Provider Date of Service: 12/08/23 Date of admission: 12/06/23 16:54 Primary care physician: Cecilia Ivey MD Consults: 12/06/23 16:58 Consult to Cardiology Routine Consulting Provider: Raman Wood Reason for consultation: endocarditis Has provider been notified: No Consult to Infectious Diseases Routine Consulting Provider: Gita Schmitz Reason for consultation: pulmonary cavitary lesion Has provider been notified: No 12/06/23 16:59 Consult to Pulmonology Routine Consulting Provider: Warenr Magaña Reason for consultation: septic emboli Has provider been notified: No DS: Diagnosis Discharge Diagnosis (1) Cavitary lesion of lung: Status: Acute (2) Septic pulmonary embolism: Status: Acute DS: Summary Hospital Course Hospital Course: 23-year-old gentleman with past medical history significant for 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 in 2018 he underwent pulmonary valve replacement for pulmonary regurgitation done in [facility], he has been taking antibiotic prophylaxis ever since his pulmonary valve replacement,he was diagnosed to have vasculitis ,his symptoms started in with dry nonproductive cough, no fevers, in May he developed rashes both feet and his legs just below his knees, associated with ankle pain and swelling, no abdominal pain, had some dark urine, 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 PCP, in May evaluated by deputy program manager, a CT chest at that time showed multiple ground-glass opacities but patient just cleared COVID infection, due to concern for small vessel vasculitis 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, initially patient treated with prednisone but due to ongoing pneumonitis and intermittent hemoptysis he was treated with Rituximab treatment, he showed improvement of immunological manifestations such as rash some improvement in CRP and resolution of hemoptysis,He was referred to emergency room by deputy program manager due to persistent mild intermittent cough, sometimes productive of clear phlegm, shortness of breath mostly with exertion, generalized weakness, ongoing leukocytosis elevated ESR with concern for underlying infection with possibility of infective endocarditis, patient denies headache lightheadedness, dizziness, fevers, chills, joint pains, recurrent rash, hemoptysis and was admitted to [facility] for further treatment and evaluation for ongoing symptoms, repeat CTA, echocardiogram and blood cultures were ordered. 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 and another surgery with pulmonary valve replacement in 2019 at [facility] on lifelong aspirin, currently receiving treatment for vasculitis finished course of Rituxan on October 29 currently on tapering dose of steroids, patient had dental workup requiring 2 fillings on October 11 and received prophylactic antibiotics, CTA chest in September showed multiple cavitary lesions raising the possibility of possible embolic phe nomenon felt to be related to vasculitis but due to non response to therapy, as well his murmur and due to persistent intermittent dry cough, shortness of breath with exertion, generalized weakness, patient admitted to [facility] with concern for infective endocarditis and pulmonary septic emboli, an echocardiogram was obtained that showed large 1 cm x 0.7 cm mobile mass on pulmonic valve consistent with vegetation , with stenosis of pulmonic valve and malfunctioning,CTA chest showed bilateral lucent, cavitary lesions and nodular foci in both lungs consistent with septic emboli. Blood cultures x4 growing Gram-positive cocci in chains, WBC within normal range patient currently on IV vancomycin and IV Kefzol [facility] [place] under care of airdrop systems technician Reuben Hall. Patient remains afebrile with normal WBC count noted to have no rashes, no hemoptysis, no joint pains , no fevers, no orthopnea or PND. In regard to history of vasculitis he is finished course of Rituxan and currently on prednisone tapering dose 30 mg and on Prilosec for GI prophylaxis recommend outpatient follow-up with Rheumatology Time Attestation Discharge Coordination Time (in mins): 40 Quality: Safe Use of Opioids Does Pt have an Active Cancer Diagnosis on the Problem List?: No Quality: Stroke Does the patient have a stroke diagnosis?: No Physical Exam Vital Signs: Vital Signs: Last Vital Signs Temp 97.6 F 12/08/23 08:00 Pulse 82 12/08/23 08:00 Resp 18 12/08/23 08:00 BP 118/64 12/08/23 08:00 Pulse Ox 96 12/08/23 08:00 O2 Del Method Room Air 12/08/23 08:00 BMI result Body Mass Index 26.5 Const: Other: General cushingoid appearance with rose face, resting comfortably in no acute distress. Anicteric sclera Neck supple no JVD. CVS systolic murmur Respiratory lungs clear to auscultation, no respiratory distress, no wheeze, no rhonchi. Gastrointestinal abdomen soft, non tender, bowel sounds audible, no guarding , no rigidity. Extremities no edema. Neuro non focal Musculoskeletal no deformity Skin pallor/no rash Psych appropriate affect DS: Data Data Completed and Pending Labs on day of discharge: Laboratory Results - last 24 hr 12/07/23 12/08/23 16:04 07:48 WBC 9.2 RBC 3.24 L Hgb 9.0 L Hct 28.6 L MCV 88.3 MCH 27.8 MCHC 31.5 RDW 14.2 Plt Count 385 MPV 8.3 L Absolute Nucleated RBC 0.000 Nucleated RBC % (auto) 0.0 Sodium 143 Potassium 4.8 Chloride 109 H Carbon Dioxide 26 Anion Gap 13 BUN 11 Creatinine 0.80 Estim Creat Clear Calc 155.5 Estimated GFR > 60 Random Glucose 83 Calcium 9.1 Random Vancomycin 12.5 L 18.4 Preliminary micro results at discharge 12/06/23 13:30 Blood Culture - Preliminary Blood - Venous Streptococcus species 12/06/23 13:30 Blood Culture - Preliminary Blood - Venous Streptococcus species Discharge Plan Discharge Anticipated Discharge Date/Time: 12/08/23 10:20 Patient Disposition: Xfer Acute Care Hospital Discharge Diagnosis: Endocarditis of prosthetic pulmonary valve Referrals: Cecilia Ivey MD [Primary Care Provider] - 1 Week Discharge Medications: New Antacid Ext Str (calcium carb) 300 mg (750 mg) Tablet,Chewable 2.5 tab PO Q4H PRN (Reason: Heartburn) Qty: 30 0RF omeprazole 20 mg Capsule,Delayed Release(Dr/Ec) 20 mg PO DAILY@0630 Qty: 30 0RF acetaminophen 325 mg Tablet 650 mg PO Q6H PRN (Reason: Pain, Mild (Pain Scale 1-3), fever or headache) Qty: 30 0RF Continued prednisone 20 mg tablet See Taper PO DAILY Taper: Prednisone 30 mg daily for 14 Days and 0 Hour 20 mg daily for 14 Days and 0 Hour 10 mg daily for 14 Days and 0 Hour aspirin 81 mg tablet,chewable 81 mg PO BEDTIME multivitamin [Daily Multi-Vitamin] Tablet 2 tab PO DAILY cholecalciferol (vitamin D3) 10 mcg (400 unit) tablet 10 mcg PO DAILY Qty: 30 1RF Discontinued sulfamethoxazole-trimethoprim [Bactrim DS] 800-160 mg tablet 1 tab PO MOWEFR Rx Instructions: STOP DATE 01/03/24 Discharge Orders: Discharge Order (Routine); Ordered 12/08/23 Ordered By: Yandy Barillas Diet: Advance to usual diet Activity on Discharge: As tolerated Stand Alone Forms: Patient Portal Discharge page Print Language: Mauritanian Care Plan Goals: Subacute endocarditis of prosthetic pulmonary valve continue IV Kefzol 2 g q.8 hours and vancomycin 1000 mg q.8 hours till final sensitivities are back On prednisone 30 mg daily day 08/22 follow prednisone tapering dose. Health Concerns: Tetralogy of fallot status post pulmonary valve replacement. Plan of Treatment: Follow-up with Cardiology [facility] Assessment: As above
[2023-12-08 12:00] VITALS: BP 118/64; PULSE 96; RESP 18; TEMP 36.4; O2SAT 96
--- NOTE | 2023-12-08 12:35 | PM.PNCARD ---
Subjective Subjective Date of Service: 12/08/23 Principal diagnosis: Prosthetic valve endocarditis Interval history: Echocardiogram consistent with large vegetation on the prosthetic pulmonic valve. Patient with no new cardiac symptoms. Feeling well. Denies any shortness of breath, abdominal distention, leg edema, lightheadedness. No significant fever episodes. Awaiting transport to [facility] for definitive care Review of Systems Review of Systems Yes all other systems are reviewed and are negative Physical Exam Vital Signs: Last Vital Signs Temp 97.6 F 12/08/23 12:00 Pulse 96 12/08/23 12:00 Resp 18 12/08/23 12:00 BP 118/64 12/08/23 12:00 Pulse Ox 96 12/08/23 12:00 O2 Del Method Room Air 12/08/23 12:00 BMI result Body Mass Index 26.5 Const General: cooperative, comfortable, alert, awake and tired appearing Nutritional Appearance: overweight Orientation/consciousness: patient oriented x3 Limitations: no limitations HEENT Head: Yes normocephalic and Yes atraumatic Neck Neck: Yes trachea midline, Yes supple and Yes no JVD Chest Chest palpation & inspection: normal inspection of the chest and other (Well-healed sternotomy scar) Resp Effort & Inspection: normal respiratory effort Auscultation: vesicular breath sounds Cardio Jugular venous distension: no JVD Palpation: no thrill Rate: regular rate Rhythm: regular rhythm Heart sounds: S1 normal heart sound present, S2 normal heart sound present, no click, no gallops and Murmur heart sound present systolic mid, decrescendo, crescendo and at the left sternal border GI Percussion: Yes normal to percussion Skin General skin exam: no rashes or lesions noted and no other (No sequelae of endocarditis) Neuro General: patient oriented x3 and no focal motor deficits Extrem General: Yes no clubbing, cyanosis or edema Psych Appearance: grossly normal Affect: Sad affect present Objective Labs and Meds 12/08/23 07:48 12/08/23 07:48 Lab results: Laboratory Results - last 24 hr 12/07/23 12/08/23 16:04 07:48 WBC 9.2 RBC 3.24 L Hgb 9.0 L Hct 28.6 L MCV 88.3 MCH 27.8 MCHC 31.5 RDW 14.2 Plt Count 385 MPV 8.3 L Absolute Nucleated RBC 0.000 Nucleated RBC % (auto) 0.0 Sodium 143 Potassium 4.8 Chloride 109 H Carbon Dioxide 26 Anion Gap 13 BUN 11 Creatinine 0.80 Estim Creat Clear Calc 155.5 Estimated GFR > 60 Random Glucose 83 Calcium 9.1 Random Vancomycin 12.5 L 18.4 Progress Note: A&P Assessment and plan (1) Infective endocarditis: Status: Acute Assessment and Plan: Infective endocarditis of the prosthetic pulmonic valve. Planned IV antibiotics and plan transferred to [facility] for definitive treatment and possible pulmonic valve replacement. Both patient and patient's parents were at bedside and we discussed management plan. Understand agree. Time Spent With Patient Time: Total time managing care of this patient today ____ minutes. Progress Note: Quality Stroke Does the patient have a stroke diagnosis?: No Procedures Date of Service Date of Service: 12/08/23
--- NOTE | 2023-12-08 12:48 | MHC.CM.PN ---
Pt is being medically transferred to [facility] today.
== END 2023-12-08 13:11 | disposition short-term general hospital (02) | DRG 206 ==
LOC: HO.ED 14:32 → HO.EDOVER 17:02 → HO.IMC 19:08
PROVIDERS: Physician Assistant Medical; Admitting Provider Hospitalist; Emergency Provider Emergency Medicine; PCP Pediatrics Adolescent Medicine; Visit Provider Hospitalist
DX: T82.6XXA Infection and inflammatory reaction due to cardiac valve prosthesis, initial encounter (principal); I26.90 Septic pulmonary embolism without acute cor pulmonale; R78.81 Bacteremia; I33.0 Acute and subacute infective endocarditis; Y71.2 Prosthetic and other implants, materials and accessory cardiovascular devices associated with adverse incidents; N02.B1 Recurrent and persistent immunoglobulin A nephropathy with glomerular lesion; J98.4 Other disorders of lung; E87.5 Hyperkalemia; Z20.822 Contact with and (suspected) exposure to COVID-19; Z79.82 Long term (current) use of aspirin; Z95.2 Presence of prosthetic heart valve; Z87.74 Personal history of (corrected) congenital malformations of heart and circulatory system; Z79.899 Other long term (current) drug therapy
CPT/HCPCS: 0241U; 36415; 71046; 71275; 80048; 80076; 80202; 81001; 82565; 83605; 83735; 84443; 84484; 85025; 85027; 85610; 85652; 86140; 86308; 87040; 87077; 87205; 87635; 93005; 93306; 99285; J0690; J1650; J2543; J3370; J3371; Q9957; Q9967

== ENCOUNTER → 2023-12-06 13:01 | Outpatient (BNV) | payer BC, OTHER, SELFPAY | PROVIDERS: Admitting Provider Hospitalist; Emergency Provider Emergency Medicine; PCP Pediatrics Adolescent Medicine; Visit Provider Internal Medicine Cardiovascular Disease | DX: R07.9 Chest pain, unspecified (principal) | CPT/HCPCS: 93010 ==

== ENCOUNTER 2023-12-06 16:54 | Outpatient (BNV) | payer BC, OTHER, SELFPAY | END 2023-12-07 07:00 | PROVIDERS: Admitting Provider Hospitalist; Emergency Provider Emergency Medicine; PCP Pediatrics Adolescent Medicine; Visit Provider Internal Medicine Cardiovascular Disease | DX: I36.1 Nonrheumatic tricuspid (valve) insufficiency (principal); T82.857A Stenosis of other cardiac prosthetic devices, implants and grafts, initial encounter; I37.8 Other nonrheumatic pulmonary valve disorders | CPT/HCPCS: 93306 ==

== ENCOUNTER → 2023-12-06 16:54 | Outpatient (BNV) | payer OTHER, SELFPAY | PROVIDERS: Admitting Provider Hospitalist; Emergency Provider Emergency Medicine; PCP Pediatrics Adolescent Medicine; Visit Provider Hospitalist | DX: J98.4 Other disorders of lung (principal); I26.90 Septic pulmonary embolism without acute cor pulmonale | CPT/HCPCS: 99223; 99233; 99239 ==

== ENCOUNTER → 2023-12-06 16:54 | Outpatient (BNV) | payer BC, OTHER, SELFPAY | PROVIDERS: Admitting Provider Hospitalist; Emergency Provider Emergency Medicine; PCP Pediatrics Adolescent Medicine; Visit Provider Hospitalist | DX: I33.0 Acute and subacute infective endocarditis (principal); I26.90 Septic pulmonary embolism without acute cor pulmonale; J98.4 Other disorders of lung | CPT/HCPCS: 99223 ==

== ENCOUNTER → 2023-12-06 16:54 | Outpatient (BNV) | payer OTHER, SELFPAY | PROVIDERS: Admitting Provider Hospitalist; Emergency Provider Emergency Medicine; PCP Pediatrics Adolescent Medicine; Visit Provider Internal Medicine Cardiovascular Disease | DX: I33.0 Acute and subacute infective endocarditis (principal) | CPT/HCPCS: 99223; 99233 ==

== ENCOUNTER → 2023-12-06 16:54 | Outpatient (BNV) | payer OTHER, SELFPAY | PROVIDERS: Admitting Provider Hospitalist; Emergency Provider Emergency Medicine; PCP Pediatrics Adolescent Medicine; Visit Provider Internal Medicine | DX: J98.4 Other disorders of lung (principal); I26.90 Septic pulmonary embolism without acute cor pulmonale | CPT/HCPCS: 99222 ==

== ENCOUNTER 2024-03-27 08:34 | Outpatient (AMB) | payer OTHER, SELFPAY ==
--- NOTE | 2024-03-27 08:39 | MHC.OFFVIS ---
Vital Signs 03/27/24 08:45 Height 5 ft 11 in Weight 200 lb 9.93 oz BMI 28.0 BP 120/60 Blood Pressure Location Rt brachial Position Sitting Pulse 94 Pulse Source Pulse Oximeter Pulse Oximetry (%) 97 Oxygen Delivery Method Room Air Intake Visit Reasons: Vasculitis/CM Intake Note: Patient presents for Vasculitis. Allergies No Known Allergies Allergy (Verified 03/27/24 08:43) Medication List - Last Reconciled 03/27/24 by Linda Garcia MD acetaminophen 650 mg (2 x 325 mg) PO Q6H PRN aspirin 81 mg PO BEDTIME ferrous sulfate 325 mg PO DAILY multivitamin (Daily Multi-Vitamin tablet) 2 tabs PO DAILY HPI Comments Details: Patient returns for follow-up. After last visit I sent patient to the ED for concern of endocarditis. Blood cultures were positive and patient had pulmonary valve endocarditis. Eventually he was transferred to [place] and received IV antibiotics followed by pulmonary valve replacement. Steroids were tapered off. He has completed his antibiotic course. He states that he is back to normal. Denies any skin rashes cough or shortness of breath. Offers no complaints today Initial history: This is a 22-year-old male who presents for evaluation of vasculitis. Back in February patient started having dry nonproductive cough with no fevers. Two months later he started having rashes both feet and his legs up to just below his knees. This was associated with some ankle pain and swelling as well as bilateral calf aches. He denies any fevers or chills, no weight loss. 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 He had some dark urine. He was prescribed steroid for 4 days with improvement of his rash. In May he was evaluated by equipment service lead Dr. Arrieta and had blood work done. He did not go back for follow-up. A CT chest was also ordered which showed multiple ground-glass opacities, but patient had just cleared a COVID infection. Currently patient is having the rash on both legs, not as severe as before. In addition to the dry cough. No other symptoms. No history of DVT/PE. No known family history of an autoimmune rheumatic disease. Of note patient has history of tetralogy of Fallot s/p surgery as an and another surgical procedure 5 years ago. He is on aspirin lifelong [facility] Medical History Cavitary lesion of lung Septic pulmonary embolism Tetralogy of Fallot Proteinuria Vasculitis Surgical History History of open heart surgery Family History Maternal Grandmother Diabetes Paternal Grandfather Diabetes Social History Household Members: Family Housing: House Do you presently have visiting nurse or other home services: No Alcohol intake: never Patient Tobacco Use Status: Never used Tobacco Current occupational status: employed Current occupation: [employer] Review of Systems Const Denies fever(s) Card Denies dyspnea Resp Denies cough and Denies dyspnea Skin/Breast Reports acne and Denies rash Physical Exam Vital Signs: Last Vital Signs Pulse 94 03/27/24 08:45 BP 120/60 03/27/24 08:45 Pulse Ox 97 03/27/24 08:45 Oxygen Delivery Method Room Air 03/27/24 08:45 BMI result Body Mass Index 28.0 Const Other: Cushingoid appearance essentially resolved General: cooperative, healthy appearing and comfortable Nutritional Appearance: overweight Orientation/consciousness: patient oriented x3 Limitations: no limitations HEENT Head: Yes normocephalic and Yes atraumatic Mouth: moist mucous membranes Resp Other: Not coughing today Effort & Inspection: normal respiratory effort and able to speak in complete sentences Cardio Rate: regular rate GI Inspection: No distended Palpation (GI): Soft to palpation and nontender Skin Other: Acne on face, arms and forearms, chest, back, no HSP rashes Neuro General: patient oriented x3 Extrem Other: No active synovitis No splinter hemorrhages, no ulcers nodes or [place]ay lesions Normal nailfold capillaroscopy Assessment & Plan Assessment & Plan (1) Vasculitis: Comment: dx 08/2023 (HSP rashes on legs, pneumonitis, 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 After last visit in 11/2023 I suspected endocarditis triggering his HSP. I sent patient to the hospital and patient was eventually diagnosed with pulmonary valve endocarditis. He was transferred to [place] and received IV antibiotics followed by pulmonary valve replacement. Prednisone was tapered off. Patient is doing much better overall. There is no recurrence of HSP rashes. I the main trigger of his small-vessel vasculitis was the infective endocarditis that was treated appropriately. There is very low likelihood of recurrence of HSP. Discussed symptoms and signs that are suggestive of recurrence of HSP such as rashes, urinary abnormalities, unexplained joint pains. At this time patient can return as needed Plan I spent 15 minutes reviewing patient's chart, evaluating patient, counseling patient and documenting in the chart Coding Level of Care Code Est Pt Level 3 (26919) Diagnoses Vasculitis I77.6
[2024-03-27 08:45] VITALS: BP 120/60; PULSE 94; O2SAT 97; BMI 28.0
== END 2024-03-27 09:18 | disposition home or self-care (01) ==
PROVIDERS: PCP Pediatrics Adolescent Medicine; Visit Provider Student in an Organized Health Care Education/Training Program
DX: I77.6 Arteritis, unspecified (principal)
CPT/HCPCS: 99213

== ENCOUNTER → 2024-03-27 08:34 | Outpatient (BNVA) | payer BC, OTHER, SELFPAY | PROVIDERS: PCP Pediatrics Adolescent Medicine; Visit Provider Student in an Organized Health Care Education/Training Program ==